=== PATIENT | male | born 1945 | race Caucasian/White ===

== ENCOUNTER 2016-03-16 02:30 | Emergency (ER) | payer OTHER, MEDICARE ==
[~2016-03-16] VITALS: Ht 170.2 cm; Wt 86.2 kg
[~2016-03-16 02:30] MED LIST: BUFFERIN LOW DO81 MG PO; DOS PO; EDARBI40 M1 PO; FISH OIL CONC1000 MG PO; LIPITOR40 M1 PO; LOPRESSOR50 M1 PO; MAGNESIUM OXID400 MG PO; METOPROLOL TAR100 MG PO; NORVASC 5MG TAB5 MG PO; OMEPRAZOLE D/R20 MG PO; RESTASIS1 EACH OPH; SILDENAFIL PO; TAMSULOSIN HYD0.4 MG PO; VITAMIN B-121000 MC3 PO; ZANTAC 150MG150 MG PO; ZITHROMAX Z-PA250 M1 PO; [UNRECOGNIZED DRUG - OTHER] PO
--- NOTE | 2016-03-16 02:36 | ED GI/GU/ABDOMINAL COMPLAINT ---
History of Present Illness General Chief Complaint: Abdominal Pain/Flank Pain Stated Complaint: ABD PAIN Source: patient Exam Limitations: no limitations Vital Signs & Intake/Output Vital Signs & Intake/Output Vital Signs Date Time Temp Pulse Resp B/P Pulse O2 O2 Flow FiO2 Ox Delivery Rate 03/16 0250 97 Room Air 03/16 0247 98.5 53 16 170/72 97 Room Air Room Air Allergies Coded Allergies: Penicillins (Intermediate, SWELLING 05/16/15) Reconcile Medications Amlodipine (Norvasc 5MG Tab) 5 MG TAB 1 TAB PO DAILY HEART (Reported) Aspirin (Children's Aspirin) 81 MG TAB 1 TAB PO DAILY HEART HEALTH (Reported) Atorvastatin Calcium (Lipitor) 40 MG TABLET 1 TAB PO DAILY high cholesterol ( Reported) Azilsartan Medoxomil (Edarbi) 40 MG TABLET 1 TAB PO DAILY Blood Pressure ( Reported) Cyanocobalamin (Vitamin B-12) 1,000 MCG TABLET 1 TAB PO DAILY Supplement ( Reported) Cyclosporine (Restasis) 1 EACH DROPERETTE 1 GTT OPH BID Eye drops (Reported) Fish Oil (Fish Oil Concentrate) 1,000 MG SGL 1 CAP PO DAILY SUPPLEMENT ( Reported) Magnesium Oxide 400 MG TAB 1 TAB PO DAILY SUPPLEMENT (Reported) Metoprolol Tartrate (Lopressor) 50 MG TABLET 1.5 TAB PO BID Blood Pressure ( Reported) Oxycodone HCl/Acetaminophen (Percocet 5-325 MG Tablet) 5 MG-325 MG TABLET 1-2 TAB PO 4XDP PRN PAIN SIXTEEN...[id number] PSYLLIUM SEED (Fiber Therapy) 3.4 GM/Dose PDR 1 PO DAILY SUPPLEMENT (Reported ) Ranitidine (Zantac) 150 MG TAB 1 TAB PO BID PRN GI (Reported) Sildenafil Citrate (Viagra) 50 MG TAB 1 TAB PO DAILY PRN ED (Reported) Triage Nurses Notes Reviewed? yes Onset: Gradual Duration: week(s):, waxing and waning Timing: recent history Quality/Severity: cramping Location: epigastric Radiation: no radiation Activities at Onset: none Prior Abdominal Problems: similar symptoms Modifying Factors: Worsens With: palpation. Associated Symptoms: abdominal pain, nausea HPI: 71 yo gentleman h/o pancreatitis, presents with mid epigastric discomfort which he has had off and on since October. He notes that he was admitted with pancreatitis, was tranferred to [place], had a negative ERCP and MRCP. Since then, he has had intermittent, fluctuating mid epigastric abdominal pain associated with mild nausea. He has no vomiting, fever, chills, vomiting, diarrhea. He is otherwise well. Past History Travel History Traveled to [place] past 21 day No Medical History Any Pertinent Medical History? 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- CABG X3 02/18/2001- CORDIS STENT PLACEMENT- CX ARTERY Respiratory: NONE Gastrointestinal: GERD, DIVERTICULOSIS COLI HX COLON TA/TVA Hepatic: NONE Renal: NONE Musculoskeletal: degen joint disease Psychiatric: NONE Endocrine: HYPERCALCEMIA (BORDERLINE) Blood Disorders: NONE Cancer(s): NONE FRAME STRIPPER/Reproductive: NONE History of MRSA: No History of VRE: No History of CDIFF: No Active CDIFF Infection: No Surgical History Surgical History: CABG, cataract removal (11/14/2014: OD with IOL), CARDIAC STENT POSSIBLE ABLATION Psychosocial History Who do you live with Spouse Services at Home None What is your primary language Sami Family History Family History, If Any: MOTHER (Non-smoker). , Age 78; Cause: Throat cancer. FATHER, , Age 82; Cause: S/P mitral valve repair. Hx Contributory? No Review of Systems Review of Systems Constitutional: Reports: no symptoms. EENTM: Reports: no symptoms. Respiratory: Reports: no symptoms. Cardiovascular: Reports: no symptoms. GI: Reports: no symptoms. Genitourinary: Reports: no symptoms. Musculoskeletal: Reports: no symptoms. Skin: Reports: no symptoms. Neurological/Psychological: Reports: no symptoms. Hematologic/Endocrine: Reports: no symptoms. Immunologic/Allergic: Reports: no symptoms. All Other Systems: Reviewed and Negative Physical Exam Physical Exam General Appearance: well developed/nourished, mild distress Head: atraumatic, normal appearance Eyes: Bilateral: normal appearance. Ears, Nose, Throat, Mouth: hearing grossly normal, moist mucous membrane Neck: normal inspection, supple, full range of motion, normal alignment Respiratory: normal breath sounds, chest non-tender, no respiratory distress, quiet respiration, lungs clear Cardiovascular: regular rate/rhythm Gastrointestinal: normal bowel sounds, soft, mild mid epigastric tenderness to palpation. no rebound. no guarding. Back: normal inspection Extremities: normal range of motion Neurologic/Psych: no motor/sensory deficits, awake, alert, oriented x 3 Skin: intact, normal color, warm/dry Core Measures ACS in differential dx? No Severe Sepsis Present: No Septic Shock Present: No Progress Differential Diagnosis: pancreatitis vs other. Plan of Care: Orders Procedure Date/time Status TROPONIN LEVEL 03/16 235 Complete PARTIAL THROMBOPLASTIN TIME 03/16 235 Complete PROTHROMBIN TIME 03/16 235 Complete LIPASE 03/16 235 Complete LACTIC ACID 03/16 235 Complete HEPATIC FUNCTION PANEL 03/16 235 Complete ETHANOL 03/16 235 Complete CBC WITHOUT DIFFERENTIAL 03/16 235 Complete BASIC METABOLIC PANEL 03/16 235 Complete AMYLASE 03/16 235 Complete EKG 03/16 235 Active Laboratory Tests 03/16/16 0304: Anion Gap 11, Estimated GFR 46 L, BUN/Creatinine Ratio 14.7, Glucose 140 H, Lactic Acid 1.0, Calcium 9.9, Total Bilirubin 0.8, Direct Bilirubin 0.5 H, AST 26, ALT 32, Alkaline Phosphatase 67, Troponin I < 0.01, Total Protein 6.8, Albumin 3.7, Amylase 39, Lipase 204, PT 14.4 H, INR 1.38 H, APTT 37, CBC w Diff NO MAN DIFF REQ, RBC 5.17, MCV 87.0, MCH 29.2, RDW 13.1, MPV 8.4, Gran % 66.1, Lymphocytes % 20.2 L, Monocytes % 11.4 H, Eosinophils % 1.8, Basophils % 0.5, Absolute Granulocytes 10.1 H, Absolute Lymphocytes 3.1, Absolute Monocytes 1.7 H, Absolute Eosinophils 0.3, Absolute Basophils 0.1, PUBS MCHC 33.5, Serum Alcohol < 10.0 Diagnostic Imaging: Viewed by Me: CT Scan. Discussed w/RAD: CT Scan. Radiology Impression: abd/pelvic ct... pancreatic stones in body. Initial ED EKG: bigeminy Rhythm Strip: nsr on the monitor. Comments: PATIENT: ISSAC ALATORRE PRESENT AGE: 71 PATIENT ACCOUNT NO: [id number] : 43 LOCATION: [facility] ORDERING PHYSICIAN: AXEL SANDOVAL MD SERVICE DATE: 03/16/16 EXAM TYPE: CAT - CT ABD & PELVIS W/O IV CONTRAS EXAMINATION: CT ABDOMEN AND PELVIS WITHOUT CONTRAST CLINICAL INFORMATION: Abdominal pain. COMPARISON: None. TECHNIQUE: Multidetector volumetric imaging was performed from the superior aspect of the liver through the pubic symphysis. Sagittal and coronal reformatted images were obtained on the technologist's workstation. DLP: 612.3 mGy-cm. FINDINGS: LUNG BASES: There is dependent juxtapleural scarring in the lower lobes bilaterally. No consolidation. Heart is enlarged. LIVER, GALLBLADDER, AND BILIARY TREE: The liver is normal in size, shape, and attenuation. No focal hepatic lesion or biliary ductal dilatation is present. The gallbladder is unremarkable with no evidence of radiopaque gallstones, gallbladder wall thickening, or obvious pericholecystic inflammatory changes. PANCREAS: The pancreas is edematous and thickened, consistent with acute pancreatitis. Peripancreatic inflammatory changes are more pronounced as compared to the prior study. Multiple calcifications are present within the pancreatic body, measuring up to 0.8 cm in diameter, likely within the main pancreatic duct. Multiple small calcifications are present proximal (to the left) of this main calcification, measuring up to 0.4 cm in diameter. These small calcifications seen on image 42/122 of series 602, likely within a side branch. The pancreatic duct appears dilated around the stones and at the pancreatic head. No focal lesions are identified on this unenhanced study. SPLEEN: Unremarkable. ADRENAL GLANDS: Unremarkable. KIDNEYS AND URETERS: As seen on image 47/89 of series 2, there is a complex renal lesion at the posterior aspect of the right lower renal pole, measuring 1.9 cm in diameter and 20 Hounsfield units in density. This is minus well-seen on the prior study. There is a 2.7 cm water density cyst at the left kidney. No hydronephrosis or nephrolithiasis. BLADDER: Unremarkable. GASTROINTESTINAL TRACT: Inflammatory changes are present around the body the stomach adjacent to the pancreas and, to a lesser extent, the transverse colon as it passes the distal margin of the pancreatic tail. These segments of bowel are likely secondarily inflamed by the aforementioned pancreatitis. Bowel is normal in caliber. No additional infiltrative changes are identified. There is severe diverticulosis in the distal descending and sigmoid colon. No intraperitoneal free fluid or free air. ABDOMINAL WALL: No significant hernia is appreciated. LYMPH NODES: Normal. VASCULAR: Calcific atherosclerosis is present in the abdominal aorta. There is a short segment of ectasia of the infrarenal abdominal aorta, measuring up to 2.7 cm in diameter. PELVIC VISCERA: Prostate gland is mildly enlarged, measuring 4.6 cm in greatest dimension. OSSEOUS STRUCTURES: Degenerative disc disease and facet arthropathy present throughout the thoracolumbar spine. Degenerative arthritis is present in the hips and SI joints. No acute osseous abnormalities. IMPRESSION: 1. Increased pancreatic and peripancreatic inflammatory changes with multiple calculi in the pancreas at the level of the pancreatic body. The pancreatitis is likely result of the stones and is more pronounced as compared to the prior study. There is secondary inflammation of the stomach and transverse colon. No peripancreatic fluid collections. 2. A 1.9 cm complex lesion in the right lower renal pole. Consider further evaluation with MRI abdomen with and without contrast. 3. Colonic diverticulosis without evidence of acute diverticulitis. DICTATED BY: JOHNY SUTHERLAND MD DATE/TIME DICTATED:03/16/16411 COMMUNITY ENGAGEMENT SPECIALIST:BETTY DATE/TIME TRANSCRIBED:03/16/16411 CONFIDENTIAL, DO NOT COPY WITHOUT APPROPRIATE AUTHORIZATION. <Electronically signed in Other Vendor System> SIGNED BY: JOHNY SUTHERLAND MD 03/16/16 0426 Departure Departure Disposition: HOME OR SELF CARE Condition: Stable Clinical Impression Primary Impression: Abdominal pain Secondary Impressions: Chronic pancreatitis Referrals: CHARLES GARIBAY MD (PCP/Family) Referred to [facility] as new patient No Departure Forms: Customer Survey General Discharge Information Prescriptions: Current Visit Scripts Oxycodone HCl/Acetaminophen (Percocet 5-325 MG Tablet) 1-2 TAB PO 4XDP PRN PAIN #16 TAB SIXTEEN...[id number] Comments 03/16/16, 5AM... .Pt feeling better... although ct scan shows inflammation, given that he is feeling better and labs are benign, and that he would like to go home , he is stable for discharge.... I counseled him to return if he is not feeling better and to follow up with his vice provost. I believe he likely has chronic paincreatitis and would benefit from percocet. Pt would like to go home.
[2016-03-16 03:22] LABS: ABSOLUTE BASOPHIL COUNT 0.1 /CUMM (0.0-0.2); ABSOLUTE EOSINOPHIL COUNT 0.3 /CUMM (0.0-0.7); ABSOLUTE GRANULOCYTE CT 10.1 /CUMM (1.4-6.5); ABSOLUTE LYMPH COUNT 3.1 /CUMM (1.2-3.4); ABSOLUTE MONOCYTE COUNT 1.7 /CUMM (0.10-0.60); BASOPHIL % 0.5 % (0.0-2.0); EOSINOPHIL % 1.8 % (0-5); GRANULOCYTE % 66.1 % (42.2-75.2); HEMATOCRIT 44.9 % (42-52); MEAN CORPUSCULAR HGB 29.2 PG (27.0-31.0); MEAN CORPUSCULAR HGB CONC 33.5 G/DL (33.0-37.0); MEAN PLATELET VOLUME 8.4 FL (7.4-10.4); PLATELET COUNT 265 /CUMM (130-400); RBC DISTRIBUTION WIDTH 13.1 % (11.5-14.5); RED BLOOD CELL CT 5.17 /CUMM (4.70-6.10); WHITE BLOOD CELL COUNT 15.3 /CUMM (4.8-10.8)
[2016-03-16 03:45] LABS: PT 14.4 SEC (9.4-12.5); PTT 37 SEC (25-37)
--- NOTE | 2016-03-16 04:26 | CT SCAN REPORT ---
EXAMINATION: CT ABDOMEN AND PELVIS WITHOUT CONTRAST CLINICAL INFORMATION: Abdominal pain. COMPARISON: None. TECHNIQUE: Multidetector volumetric imaging was performed from the superior aspect of the liver through the pubic symphysis. Sagittal and coronal reformatted images were obtained on the technologist's workstation. DLP: 612.3 mGy-cm. FINDINGS: LUNG BASES: There is dependent juxtapleural scarring in the lower lobes bilaterally. No consolidation. Heart is enlarged. LIVER, GALLBLADDER, AND BILIARY TREE: The liver is normal in size, shape, and attenuation. No focal hepatic lesion or biliary ductal dilatation is present. The gallbladder is unremarkable with no evidence of radiopaque gallstones, gallbladder wall thickening, or obvious pericholecystic inflammatory changes. PANCREAS: The pancreas is edematous and thickened, consistent with acute pancreatitis. Peripancreatic inflammatory changes are more pronounced as compared to the prior study. Multiple calcifications are present within the pancreatic body, measuring up to 0.8 cm in diameter, likely within the main pancreatic duct. Multiple small calcifications are present proximal (to the left) of this main calcification, measuring up to 0.4 cm in diameter. These small calcifications seen on image 42/122 of series 602, likely within a side branch. The pancreatic duct appears dilated around the stones and at the pancreatic head. No focal lesions are identified on this unenhanced study. SPLEEN: Unremarkable. ADRENAL GLANDS: Unremarkable. KIDNEYS AND URETERS: As seen on image 47/89 of series 2, there is a complex renal lesion at the posterior aspect of the right lower renal pole, measuring 1.9 cm in diameter and 20 Hounsfield units in density. This is minus well-seen on the prior study. There is a 2.7 cm water density cyst at the left kidney. No hydronephrosis or nephrolithiasis. BLADDER: Unremarkable. GASTROINTESTINAL TRACT: Inflammatory changes are present around the body the stomach adjacent to the pancreas and, to a lesser extent, the transverse colon as it passes the distal margin of the pancreatic tail. These segments of bowel are likely secondarily inflamed by the aforementioned pancreatitis. Bowel is normal in caliber. No additional infiltrative changes are identified. There is severe diverticulosis in the distal descending and sigmoid colon. No intraperitoneal free fluid or free air. ABDOMINAL WALL: No significant hernia is appreciated. LYMPH NODES: Normal. VASCULAR: Calcific atherosclerosis is present in the abdominal aorta. There is a short segment of ectasia of the infrarenal abdominal aorta, measuring up to 2.7 cm in diameter. PELVIC VISCERA: Prostate gland is mildly enlarged, measuring 4.6 cm in greatest dimension. OSSEOUS STRUCTURES: Degenerative disc disease and facet arthropathy present throughout the thoracolumbar spine. Degenerative arthritis is present in the hips and SI joints. No acute osseous abnormalities. IMPRESSION: 1. Increased pancreatic and peripancreatic inflammatory changes with multiple calculi in the pancreas at the level of the pancreatic body. The pancreatitis is likely result of the stones and is more pronounced as compared to the prior study. There is secondary inflammation of the stomach and transverse colon. No peripancreatic fluid collections. 2. A 1.9 cm complex lesion in the right lower renal pole. Consider further evaluation with MRI abdomen with and without contrast. 3. Colonic diverticulosis without evidence of acute diverticulitis.
[2016-03-16] MEDS ORDERED: PERCOCET 5-3251 EACH PO (05:01)
[2016-03-16 05:15] VITALS: BP 108/55
== END 2016-03-16 05:16 ==
LOC: ERH 02:30
PROVIDERS: Pediatrics
DX: K86.1 Other chronic pancreatitis (principal)
CPT/HCPCS: 74176; 93005; 93010; 96361; 96374; 96375; G0480

== ENCOUNTER 2017-06-30 10:42 | Observation (INO) | payer OTHER, MEDICARE ==
[~2017-06-30] VITALS: Ht 170.2 cm; Wt 90.7 kg
[~2017-06-30 10:42] MED LIST changes: -BUFFERIN LOW DO81 MG PO; +CHILDREN'S ASPI81 M1 PO; -DOS PO; +FIBER THERAPY500 MG PO; +FISH OIL CONC1000 M1 PO; -FISH OIL CONC1000 MG PO; +LIPITOR20 M2 PO; -LIPITOR40 M1 PO; +MAGNESIUM OXID400 M1 PO; +MECLIZINE HCL25 MG PO; -NORVASC 5MG TAB5 MG PO; +NORVASC5 M1 PO; +OMEPRAZOLE40 M1 PO; +PERCOCET 5-3251 EACH PO; +VITAMIN D31000 UNI2 PO; -[UNRECOGNIZED DRUG - OTHER] PO
[2017-06-30 11:44] LABS: ABSOLUTE BASOPHIL COUNT 0.1 /CUMM (0.0-0.2); ABSOLUTE EOSINOPHIL COUNT 0.2 /CUMM (0.0-0.7); ABSOLUTE GRANULOCYTE CT 5.5 /CUMM (1.4-6.5); ABSOLUTE LYMPH COUNT 2.4 /CUMM (1.2-3.4); ABSOLUTE MONOCYTE COUNT 0.7 /CUMM (0.10-0.60); BASOPHIL % 0.8 % (0.0-2.0); EOSINOPHIL % 2.7 % (0-5); GRANULOCYTE % 61.3 % (42.2-75.2); HEMATOCRIT 47.7 % (42-52); MEAN CORPUSCULAR HGB 28.9 PG (27.0-31.0); MEAN CORPUSCULAR HGB CONC 33.8 G/DL (33.0-37.0); MEAN CORPUSCULAR VOLUME 85.6 FL (80.0-94.0); MEAN PLATELET VOLUME 8.3 FL (7.4-10.4); PLATELET COUNT 224 /CUMM (130-400); RBC DISTRIBUTION WIDTH 13.8 % (11.5-14.5); RED BLOOD CELL CT 5.57 /CUMM (4.70-6.10); WHITE BLOOD CELL COUNT 8.9 /CUMM (4.8-10.8)
[2017-06-30 11:56] LABS: PT 11.8 SEC (9.4-12.5); PTT 33 SEC (25-37)
--- NOTE | 2017-06-30 15:00 | RADIOLOGY REPORT ---
EXAMINATION: XR CHEST CLINICAL INFORMATION: 72-year-old male patient with chest pain. Presumptive diagnosis: CHF. COMPARISON: Chest x-ray on 01/30/2015. Interval studies on 06/23/2015 and 11/10/2015. TECHNIQUE: PA and lateral erect views of the chest FINDINGS: Reexamination shows borderline enlargement of the heart. Previous surgery has been performed and sternotomy wires are in place. There is a fracture involving the third wire from the top. Pulmonary vascularity is normal. Lungs are clear showing no evidence of edema or consolidation. No pleural effusion is seen. IMPRESSION: No evidence of CHF.
--- NOTE | 2017-06-30 15:23 | ED CARDIAC/CP/PALPITATIONS ---
History of Present Illness General Chief Complaint: Chest Pain Stated Complaint: CHEST PAIN Source: patient Exam Limitations: no limitations Vital Signs & Intake/Output Vital Signs & Intake/Output Vital Signs Date Time Temp Pulse Resp B/P B/P Pulse O2 O2 Flow FiO2 Mean Ox Delivery Rate 06/30 1732 97.7 58 20 152/74 96 Room Air 06/30 1443 98 Room Air Room Air 06/30 1443 52 18 176/76 98 Room Air Room Air 06/30 1337 96.6 57 20 132/83 99 Room Air 06/30 1130 96.8 59 18 148/83 96 Room Air Allergies Coded Allergies: Penicillins (Intermediate, SWELLING 05/16/15) Reconcile Medications Amlodipine Besylate (Norvasc) 5 MG TABLET 1 TAB PO DAILY HEART (Reported) Aspirin (Children's Aspirin) 81 MG TAB.CHEW 1 TAB PO Q48 HEART HEALTH ( Reported) Atorvastatin Calcium (Lipitor) 40 MG TABLET 1 TAB PO DAILY high cholesterol ( Reported) Azilsartan Medoxomil (Edarbi) 40 MG TABLET 1 TAB PO DAILY Blood Pressure ( Reported) Cholecalciferol (Vitamin D3) 1,000 UNIT TABLET 1 TAB PO DAILY VITAMIN SUPPORT (Reported) Cyanocobalamin (Vitamin B-12) 1,000 MCG TABLET 1 TAB PO DAILY Supplement ( Reported) Cyclosporine (Restasis) 1 EACH DROPERETTE 1 GTT OPH BID Eye drops (Reported) Magnesium Oxide 400 MG TABLET 1 TAB PO DAILY SUPPLEMENT (Reported) Meclizine HCl 25 MG TABLET 1 TAB PO Q6P VERTIGO Methylcellulose (Fiber Therapy) 500 MG TABLET 1 TAB PO DAILY SUPPLEMENT ( Reported) Metoprolol Tartrate (Lopressor) 50 MG TABLET 1.5 TAB PO BID Blood Pressure ( Reported) [place]-3 Fatty Acids (Fish Oil Concentrate) 1,000 MG CAPSULE 1 CAP PO DAILY SUPPLEMENT (Reported) Omeprazole 40 MG CAPSULE.DR 1 CAP PO DAILY GI (Reported) Triage Note: C/O INTERMITTANT LEFT SIDED CHEST PAIN X 8 HOURS, WITH INTERMITTANT LEFT ARM NUNBESS X 3 WEEKS. DENIES SOB, DIZZINESS OR [place], PAIN FREE AT PRESENT. EKG DONE IN TRIAGE. Triage Nurses Notes Reviewed? yes Onset: Abrupt Duration: hour(s): (8-10), intermittent, waxing and waning Timing: recent history Quality/Severity: mild Radiation: shoulders Activities at Onset: none Prior Chest Pain/Card Workup: cardiac cath HPI: 72-year-old male comes into the emergency room for further evaluation of left- sided chest pain that has been going on for the past 8-10 hours intermittently. Located on the left anterior aspect of his chest and radiates into his left shoulder. He has some associated sweating with the initial attack. Patient reports she was sitting on his chair when he felt the pain. He has a history of triple bypass and cardiac stent. Pain has been intermittent here in the emergency room. Denies any fever chills vomiting or shortness of breath. Nothing seems to make the symptoms better or worse. (Rafa Fernández) Past History Travel History Traveled to [place] past 21 day No Medical History Any Pertinent Medical History? 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 , Age 78; Cause: Throat cancer. FATHER, , Age 82; Cause: S/P mitral valve repair. Hx Contributory? No (Rafa Fernández) Review of Systems Review of Systems Constitutional: Reports: see HPI. EENTM: Reports: no symptoms. Respiratory: Reports: see HPI. Cardiovascular: Reports: see HPI. GI: Reports: no symptoms. Genitourinary: Reports: no symptoms. Musculoskeletal: Reports: no symptoms. Skin: Reports: no symptoms. Neurological/Psychological: Reports: no symptoms. Hematologic/Endocrine: Reports: no symptoms. Immunologic/Allergic: Reports: no symptoms. All Other Systems: Reviewed and Negative (Rafa Fernández) Physical Exam Physical Exam General Appearance: well developed/nourished, alert, awake Head: atraumatic Eyes: Bilateral: normal appearance. Ears, Nose, Throat: normal ENT inspection, hearing grossly normal Neck: normal inspection Respiratory: normal breath sounds, no respiratory distress Cardiovascular: regular rate/rhythm Gastrointestinal: soft Back: normal inspection Extremities: normal inspection Neurologic/Psych: awake, alert, oriented x 3 Skin: intact, normal color Core Measures ACS in differential dx? Yes CVA/TIA Diagnosis No Sepsis Present: No Sepsis Focused Exam Completed? No (Rafa Fernández) Progress Differential Diagnosis: AMI, aortic dissection, costochondritis, musculoskeletal pain, myocarditis, pancreatitis, pericarditis, pneumonia, pneumothorax, pulmonary embolism, unstable angina Plan of Care: Orders Procedure Date/time Status Heart Healthy Diet 07/[address] in observation 06/30 1733 Active ED Holding Orders 06/30 1733 Active Vital Signs 06/30 1733 Active Code Status 06/30 1733 Active Telemetry/Supervisor [employer] 06/30 1438 Active TROPONIN LEVEL 06/30 1134 Complete PARTIAL THROMBOPLASTIN TIME 06/30 1134 Complete PROTHROMBIN TIME 06/30 1134 Complete CBC WITHOUT DIFFERENTIAL 06/30 1134 Complete BASIC METABOLIC PANEL 06/30 1134 Complete EKG 06/30 1043 Active Laboratory Tests 06/30/17 1135: Anion Gap 11, Estimated GFR 59 L, BUN/Creatinine Ratio 13.3, Glucose 94, Calcium 10.3 H, Troponin I < 0.01, PT 11.8, INR 1.08, APTT 33, CBC w Diff NO MAN DIFF REQ, RBC 5.57, MCV 85.6, MCH 28.9, MCHC 33.8, RDW 13.8, MPV 8.3, Gran % 61.3, Lymphocytes % 27.5, Monocytes % 7.7, Eosinophils % 2.7, Basophils % 0.8, Absolute Granulocytes 5.5, Absolute Lymphocytes 2.4, Absolute Monocytes 0.7 H, Absolute Eosinophils 0.2, Absolute Basophils 0.1 Diagnostic Imaging: Viewed by Me: Radiology Read. Discussed w/RAD: Radiology Read. Radiology Impression: PATIENT: ISSAC ALATORRE PRESENT AGE: 72 PATIENT ACCOUNT NO: [id number] : 43 LOCATION: [facility] ORDERING PHYSICIAN: Moe Joyner DO SERVICE DATE: 06/30/179962 EXAM TYPE: RAD - XRY-CHEST XRAY, TWO VIEWS EXAMINATION: XR CHEST CLINICAL INFORMATION : 72-year-old male patient with chest pain. Presumptive diagnosis: CHF. COMPARISON: Chest x-ray on 01/30/2015. Interval studies on 06/23/2015 and 2015. TECHNIQUE: PA and lateral erect views of the chest FINDINGS: Reexamination shows borderline enlargement of the heart. Previous surgery has been performed and sternotomy wires are in place. There is a fracture involving the third wire from the top. Pulmonary vascularity is normal. Lungs are clear showing no evidence of edema or consolidation. No pleural effusion is seen. IMPRESSION: No evidence of CHF. DICTATED BY: Henri Abel MD DATE/TIME DICTATED:06/30/171453 MERCHANT PATROLLER:BETTY DATE/TIME TRANSCRIBED:06/30/171453 CONFIDENTIAL, DO NOT COPY WITHOUT APPROPRIATE AUTHORIZATION. <Electronically signed in Other Vendor System> SIGNED BY: Henri Abel MD 06/30/17 1500 Initial ED EKG: normal sinus rhythm, rate (55) (Rafa Fernández) Departure Departure Disposition: STILL A PATIENT Condition: Stable Clinical Impression Primary Impression: Unstable angina Referrals: Chely SALVADOR,Garland Lopez (PCP/Family) Departure Forms: Customer Survey General Discharge Information Admission Note Documentation of Exam: Documentation of any treatments & extenuating circumstances including Concerns Regarding Discharge (functional status, medication knowledge or non-compliance, living conditions, etc.) that warrant an admission rather than observation: Cardiac telemetry. Serial troponins. Cardiac consultation. High risk. Intermittent chest pain here in the emergency room. Significant cardiac history. (Rafa Fernández) Observation Note Spoke With: Flex SALVADOR,Hamida Lopez Physician Advisor Notified: MOE JOYNER DO Place Patient In: Non-ED OBS Care Area Rationale for Observation: My rational for observation is as follows [serial troponins, cardiology consultation]. PA/OYSTER SHUCKER Co-Sign Statement Statement: ED Attending supervision documentation- [X] I saw and evaluated the patient. I have also reviewed all the pertinent lab results and diagnostic results. I agree with the findings and the plan of care as documented in the PA's/OYSTER SHUCKER's documentation. [] I have reviewed the ED Record and agree with the PA's/OYSTER SHUCKER's documentation. [] Additions or exceptions (if any) to the PAs/OYSTER SHUCKER's note and plan are summarized below: [] 72-year-old man with history of coronary artery disease presents with ongoing intermittent chest pain. He is being placed in observation for serial troponins , cardiology consultation. (Pepito BONILLA,Moe Ragsdale) Critical Care Note Critical Care Note Critical Care Time: non-applicable (Rafa Fernández)
--- NOTE | 2017-06-30 16:35 | CT SCAN REPORT ---
EXAMINATION: CT ABDOMEN AND PELVIS WITHOUT CONTRAST CLINICAL INFORMATION: Abdominal pain. COMPARISON: CT scan abdomen and pelvis 03/16/2016. TECHNIQUE: Multidetector volumetric imaging was performed from the superior aspect of the liver through the pubic symphysis. Sagittal and coronal reformatted images were obtained on the technologist's workstation. DLP: 674.64 mGy-cm FINDINGS: LUNG BASES: The visualized lung bases are unremarkable. LIVER, GALLBLADDER, AND BILIARY TREE: The liver is normal in size, shape, and attenuation. No focal hepatic lesion or biliary ductal dilatation is present. The gallbladder is unremarkable with no evidence of radiopaque gallstones, gallbladder wall thickening, or obvious pericholecystic inflammatory changes. PANCREAS: There are small cystic regions in the uncinate process of the pancreas without enlargement of the pancreas with inflammation around the pancreas. These have density measurement of about 1 Hounsfield unit. There are couple of coarse calcifications in the pancreatic body. This is stable since CAT scan 03/16/2016. There is no pancreatic duct dilatation. SPLEEN: Unremarkable. ADRENAL GLANDS: Unremarkable. KIDNEYS AND URETERS: Cortical cyst upper pole of left kidney measuring 2.5 cm. There is a 2.6 cm cortical cyst at the lower pole of the right kidney. No renal or ureteral calculi. There is no hydronephrosis. BLADDER: Unremarkable. GASTROINTESTINAL TRACT: There is marked diverticulosis of the sigmoid and left colon with scattered diverticula in the right colon. There is no diverticulitis. There is no acute abnormality of the bowel. No bowel obstruction. No bowel wall thickening or edema. Moderate volume of stool in the colon. The appendix is normal. The small bowel loops are normal. ABDOMINAL WALL: No significant hernia is appreciated. LYMPH NODES: Normal. VASCULAR: There are atherosclerotic vascular wall calcifications throughout the abdomen and pelvis. There is a subtle fusiform aneurysm of the distal aorta measuring 2.6 cm AP. PELVIC VISCERA: Prostate measures 5.1 cm transverse. OSSEOUS STRUCTURES: Degenerative spondylosis spine with multilevel disc height narrowing, endplate spurring and facet joint arthrosis. IMPRESSION: No acute abnormality CT scan abdomen and pelvis. There is diverticulosis of the colon but no acute change of the bowel.
--- NOTE | 2017-06-30 17:28 | History & Physical ---
[facility] 1726: General Information and HPI MD Statement: I have seen and personally examined ISSAC ALATORRE and documented this H&P. The patient is a 72 year old M who presented with a patient stated chief complaint of chest pain with left arm numbness []. Source of Information: patient, old records Exam Limitations: no limitations History of Present Illness: 72 YO M with PMH of A. fib status post ablation, CAD status post CABG with stent placement, hypertension, hyperlipidemia, GERD, diverticulosis, degenerative joint disease and hypercalcemia came to ED with chief complaint of chest pain and left arm numbness since this morning. Patient reported that he was in his usual state of health since this morning when he woke up around 2 AM and he noticed having chest pain and left arm numbness. Chest pain was 7/10 intermittent, in the center of chest, nonradiating and no aggravating or relieving factors. Patient also reported having numbness on the left arm. Patient endorsed that this pain didn't worsen with exertion and not relieved with rest. Patient didn't take any medication. Patient also reported having sweating associated with pain. He denied any palpitation, shortness of breath, lightheadedness, headache, and radiation of the pain, abdominal pain, diarrhea, blood in stool, blood in vomitus, nausea, vomiting, sick contact and dysuria. Patient reported that 3 weeks back he went to initiate for renal ultrasound as he had a right renal tumor and he also notes in that his abdomen is increasing in size. He also reported that he gained 10 pounds in couple months. Patient had last echocardiogram in 2016 that showed ejection fraction 60-65%. Last time he was admitted in 2016 with abdominal pain and he was found to have pancreatitis. ED course: Vitals: Temperature 96.8, pulse 59, respiratory rate 18, blood pressure 148/83, oxygen saturation 96% on room air Labs: WBC count 8.9, hemoglobin 16.1, hematocrit 47.7, platelet count 224, sodium 142, potassium 4.6, BUN 16, creatinine 1.2, anion gap 11, BUN/creatinine ratio 13.3, glucose 94, calcium 10.3, troponin less than 0.01, INR 1.08 Allergies/Medications Allergies: Coded Allergies: Penicillins (Intermediate, SWELLING 05/16/15) Past History Travel History Traveled to [place] past 21 day No Medical History Neurological: NONE EENT: epistaxis Cardiovascular: AFIB (PAROXYSMAL- POST ABLATION), CAD, hypertension, hyperlipidemia, myocardial infarction, 03/04/1999- CABG X3 02/18/2001- CORDIS STENT PLACEMENT- CX ARTERY Respiratory: NONE Gastrointestinal: GERD, DIVERTICULOSIS COLI HX COLON TA/TVA Hepatic: NONE Renal: NONE Musculoskeletal: degen joint disease Psychiatric: NONE Endocrine: HYPERCALCEMIA (BORDERLINE) Blood Disorders: NONE Cancer(s): NONE 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 , Age 78; Cause: Throat cancer. FATHER, , Age 82; Cause: S/P mitral valve repair. Psychosocial History Who Do You Live With? spouse Services at Home: None Primary Language: Angolan ETOH Use: occasional use Living Will? no Power of Manager Residential/HCP? no Functional Ability ADLs Independent: dressing, eating, toileting, bathing. Ambulation: independent IADLs Independent: shopping, housework, finances, food prep, telephone, transportation , medication admin. Review of Systems Review of Systems Constitutional: Denies: chills, fever. EENTM: Reports: no symptoms. Cardiovascular: Reports: chest pain. Denies: palpitations. Respiratory: Denies: cough, short of breath, sputum production. GI: Reports: constipation, distention. Denies: abdominal pain, diarrhea, nausea. Genitourinary: Reports: no symptoms. Musculoskeletal: Reports: no symptoms. Neurological/Psychological: Reports: numbness. Exam & Diagnostic Data Last 24 Hrs of Vital Signs/I&O Vital Signs Date Time Temp Pulse Resp B/P B/P Pulse O2 O2 Flow FiO2 Mean Ox Delivery Rate 06/30 1443 98 Room Air Room Air 06/30 1443 52 18 176/76 98 Room Air Room Air 06/30 1337 96.6 57 20 132/83 99 Room Air 06/30 1130 96.8 59 18 148/83 96 Room Air Intake & Output 06/30 1600 06/30 0800 06/30 0000 Intake Total Output Total Balance Patient 200 lb Weight Weight Reported by Patient Measurement Method Physical Exam General Appearance Alert, Oriented X3, Cooperative Skin No Rashes Skin Temp/Moisture Exam: Warm/Dry Sepsis Skin Exam (color): Normal for Ethnicity HEENT Atraumatic, PERRLA, EOMI Neck Supple Cardiovascular Normal S1, Normal S2 Lungs Clear to Auscultation Abdomen No Tenderness, Mild distension Neurological Normal Speech, Strength at 5/5 X4 Ext, Normal Tone Extremities b/l grade 1 pedal edema Last 24 Hrs of Labs/Markel: Laboratory Tests 06/30/17 1135: Anion Gap 11, Estimated GFR 59 L, BUN/Creatinine Ratio 13.3, Glucose 94, Calcium 10.3 H, Total Bilirubin 0.7, Direct Bilirubin 0.5 H, AST 32, ALT 49, Alkaline Phosphatase 67, Troponin I < 0.01, Total Protein 7.2, Albumin 4.2, Lipase 31, PT 11.8, INR 1.08, APTT 33, CBC w Diff NO MAN DIFF REQ, RBC 5.57, MCV 85.6, MCH 28.9, MCHC 33.8, RDW 13.8, MPV 8.3, Gran % 61.3, Lymphocytes % 27.5, Monocytes % 7.7, Eosinophils % 2.7, Basophils % 0.8, Absolute Granulocytes 5.5, Absolute Lymphocytes 2.4, Absolute Monocytes 0.7 H, Absolute Eosinophils 0.2, Absolute Basophils 0.1 Assessment/Plan Assessment: 72 YO M with PMH of A. fib status post ablation, CAD status post CABG with stent placement, hypertension, hyperlipidemia, GERD, diverticulosis, degenerative joint disease and hypercalcemia came to ED with chief complaint of chest pain and left arm numbness since this morning. We will keep the patient under observation on telemetry floor for following reasons: Chest pain: -Probably patient has unstable angina considering his past medical history of CABG and stent placement we will keep the patient on telemetry floor. -Serial Trop and EKG to rule out any ischemic cardiac injury -We will continue his aspirin and atorvastatin -Cardiology consult in am -Echocardiogram in a.m. History of hypertension: -Continue losartan,amlodipine and metoprolol. History of hyperlipidemia; -Continue atorvastatin History of GERD: -Continue omeprazole DVT prophylaxis: Mechanical and subcutaneous heparin CODE STATUS: Full code As Ranked By This Provider Problem List: 1. Chest pain Core Measures/Misc (11/30) Acute Coronary Syndrome ACS Diagnosis: No Congestive Heart Failure Congestive Heart Failure Diagnosis No Cerebrovascular Accident CVA/TIA Diagnosis: No VTE (View Protocol) VTE Risk Factors Age>40 No Mechanical VTE Prophylaxis d/t N/A MechProphylax Ordered No VTE Pharm Prophylaxis d/t NA PharmProphylax ordered Sepsis (View protocol) Sepsis Present: No Colin Chauhan MD 06/30/171921: General Information and HPI Allergies/Medications Home Med list Amlodipine Besylate (Norvasc) 5 MG TABLET 1 TAB PO DAILY HEART (Reported) Aspirin (Children's Aspirin) 81 MG TAB.CHEW 1 TAB PO Q48 HEART HEALTH ( Reported) Atorvastatin Calcium (Lipitor) 20 MG TABLET 1 TAB PO DAILY HLD (Reported) Azilsartan Medoxomil (Edarbi) 40 MG TABLET 1 TAB PO DAILY Blood Pressure ( Reported) Cholecalciferol (Vitamin D3) 1,000 UNIT TABLET 1 TAB PO DAILY VITAMIN SUPPORT (Reported) Cyanocobalamin (Vitamin B-12) 1,000 MCG TABLET 1 TAB PO DAILY Supplement ( Reported) Cyclosporine (Restasis) 1 EACH DROPERETTE 1 GTT OPH BID Eye drops (Reported) Magnesium Oxide 400 MG TABLET 1 TAB PO DAILY SUPPLEMENT (Reported) Methylcellulose (Fiber Therapy) 500 MG TABLET 1 TAB PO DAILY SUPPLEMENT ( Reported) Metoprolol Tartrate (Lopressor) 50 MG TABLET 1.5 TAB PO BID Blood Pressure ( Reported) [place]-3 Fatty Acids (Fish Oil Concentrate) 1,000 MG CAPSULE 1 CAP PO DAILY SUPPLEMENT (Reported) Omeprazole 40 MG CAPSULE. 1 CAP PO DAILY GI (Reported) Resident Review Statement Resident Statement: examined this patient, discussed with transportation logistics internship, agreed with transportation logistics internship, discussed with family Other Findings: History of Present 72-year-old man with past medical history of coronary artery disease status post CABG (1998), myocardial infarction status post stent (2000), atrial fibrillation status post ablation, hypertension, hyperlipidemia, and GERD seen for evaluation of chest pain and left arm pain. Patient was previously admitted to [facility] from 11/10/15-11/12/15 for evaluation of abdominal pain where he was found to have pancreatitis and a "pancreatic mass" with hypercalcemia for which he was treated with IV fluids and underwent outpatient GI and endocrine evaluation that was ultimately unremarkable; the mass was found to be choledocholithiasis. Patient reports being awoken from sleep around 2 AM with left-sided 7-8/10 chest pain without radiation or aggravating/alleviating factors. The pain was characterized as pressure and waxing/waning without changes with position or breathing. He reported left arm discomfort described as numb/tingling that felt different than his chest pain as if he "slept on it wrong". He rubbed "BenGay" on his chest that did not relieve his symptoms. He reportedly developed cold sweats during these episodes. He does admit to recent shortness of breath with hand/feet swelling. For further evaluation and persistence of these symptoms the patient reports the [place] ED. Presently patient states that his belly feels bloated as his only complaint but he otherwise denies any further chest pain or arm discomfort. Review of systems Otherwise he denies any headache, fever, chills, blurred/double vision, light headedness, dizziness, current chest pain, palpitations, heartburn, shortness of breath Objective Vital signs -Temp 96.6-96.8, HR 52-59, RR 18-20, SBP 172-176, O2 96-98% on room air Physical exam -Gen.: Well-developed, well-nourished obese elderly man in no acute distress -HEENT: NCAT, PERRLA, EOMI, anicteric sclera, moist mucous membranes -Neck: Supple, no JVD, trachea midline -Cardio: Normal S1/S2 without murmurs/gallops/rubs; regular rate and rhythm -Pulmonary: Clear to auscultation bilaterally -Abdomen: Soft, mildly distended, mild diffuse tenderness without guarding or rigidity, bowel sounds present -Neuro: Awake and alert, cranial nerves II through XII grossly intact -Extremities: Normal pulses, trace bilateral pedal edema Lab / Imaging / Studies -CBC: WBC 8.9, hemoglobin 16.1, hematocrit 47.7, platelet 224 -BMP: Sodium 142, potassium 4.6, chloride 116, CO2 25, urea 16, creatinine 1.2, anion gap 11, glucose 94 -Miscellaneous: Troponin I <0.01, INR 1.08, calcium 10.3 -Chest x-ray: No acute cardiopulmonary findings -CT abdomen/pelvis without IV contrast: * No acute abnormality CT scan abdomen and pelvis. There is diverticulosis of the colon but no acute change of the bowel. -EKG: Normal sinus rhythm -ED interventions: * Aspirin 325 mg by mouth once Assessment 72-year-old man with a significant cardiovascular history seen for evaluation of acute onset chest pain waking him from sleep. Given his known coronary artery disease requiring stents with bypass and his several cardiovascular risk factors patient has a high pretest probability for progressive/worsening coronary artery disease. EKG and troponin remain unremarkable without any further subjective chest pain or complaints. Clinically patient does not appear to be having an acute coronary syndrome. For further evaluation of patient's complaints he is placed under observation on the telemetry floor for serial troponin/EKG and cardio evaluation. Problem List -Chest pain at rest, possible unstable angina -Abdominal distention -Atrial fibrillation s/p ablation -"Kidney Tumor" -Coronary artery disease s/p CABG (1998) -Myocardial infarction s/p PCI with stent (2000) -Hypertension -Hyperlipidemia -Obesity -GERD Plan -Telemetry observation -Telemetry monitoring -Continue home medications: amlodipine, aspirin, atorvastatin, losartan( substituted for azilsartan), vitamin D, B12, mag-ox, fiber, metoprolol, fish, omeprazole -Cardiology consult for chest pain -Trend troponin / EKG until peak or three negative sets -Check LFTs and lipase -Pain control with acetaminophen -Heart healthy diet -DVT PPx with subcutaneous heparin -FULL CODE Hamida Mccord MD 06/30/172031: Attending MD Review Statement Attending Statement Attending MD Statement: examined this patient, discuss w/resident/PA/CORRUGATOR OPERATOR, agreed w/resident/PA/CORRUGATOR OPERATOR, reviewed EMR data (avail), reviewed images Attending Assessment/Plan: 72 year old male with PMH HTN, CAD, Afib with h/o ablation on no ac, h/o pancreatitis here with 3 week h/o left arm numbness and one day h/o left sided chest pain. History is atypical for ACS but given risk factors and known CAD, will bring pt in to observation and r/o acs. Will continue his Norvasc, Metoprolol, ARB, Statin and Asa for now. Given neg enzymes and no dynamic EKG changes, will hold off on IV Heparin for now. Need collaterla h/o and old records regarding "Kidney mass" per pt. Formal cardiology conuslt with Dr Jordan [facility] (with whom pt folloows) for recent echo and risk stratifcation. DVT prophylaxis.
[2017-07-01 06:17] LABS: ABSOLUTE BASOPHIL COUNT 0 /CUMM (0.0-0.2); ABSOLUTE EOSINOPHIL COUNT 0.2 /CUMM (0.0-0.7); ABSOLUTE GRANULOCYTE CT 5.9 /CUMM (1.4-6.5); ABSOLUTE LYMPH COUNT 2.6 /CUMM (1.2-3.4); BASOPHIL % 0.3 % (0.0-2.0); EOSINOPHIL % 2.5 % (0-5); GRANULOCYTE % 60.5 % (42.2-75.2); MEAN CORPUSCULAR HGB 28.8 PG (27.0-31.0); MEAN CORPUSCULAR HGB CONC 33.2 G/DL (33.0-37.0); MEAN CORPUSCULAR VOLUME 86.8 FL (80.0-94.0); MEAN PLATELET VOLUME 8.4 FL (7.4-10.4); PLATELET COUNT 229 /CUMM (130-400); RBC DISTRIBUTION WIDTH 13.6 % (11.5-14.5); RED BLOOD CELL CT 5.53 /CUMM (4.70-6.10); WHITE BLOOD CELL COUNT 9.8 /CUMM (4.8-10.8)
[2017-07-01 07:00] VITALS: BP 132/70
--- NOTE | 2017-07-01 08:00 | PN-Observation ---
[facility] Observation [facility] Observation Note _ I have personally examined ISSAC ALATORRE. him disposition is uncertain at this time. Before a determination can be made, he requires continued observation for the following reasons chest pain and new onset of atrial flutter []. Assessment/Plan Medical Assessment: 72 YO M with PMH of A. fib status post ablation, CAD status post CABG with stent placement, hypertension, hyperlipidemia, GERD, diverticulosis, degenerative joint disease and hypercalcemia came to ED with chief complaint of chest pain and left arm numbness. Patient was found to have new onset of atrial flutter in ED. Problem List: 1. Chest pain 2. Atrial flutter Plan: Chest pain: -Probably patient has unstable angina considering his past medical history of CABG and stent placement we will keep the patient on telemetry floor. -Serial Trops remained negative. His EKGs have T-wave inversion compare to previuos EKG. -continue his aspirin and atorvastatin -f/u with cardio recommendations. New onset atrial flutter: -Inpatient cardioversion versus output-procedure was discussed with patient and he agreed to go with outpatient procedure if it would not convert spontaneously to sinus rhythm. -Patient was given to for anticoagulation to prevent risk of stroke in the setting of atrial flutter. Xeralto dose was confirmed with inpatient pharmacy. Before discharging the patient CMR was discussed with Dr. Ojeda with all new medication recommended by cardiology. -His metoprolol was increased from 75 twice a day 200 twice a day. -patient was instructed to follow outpatient cardiology for ablation procedure also for stress test in future. -Patient was given Imdur 30 mg for chest pain History of hypertension: -Continue losartan,amlodipine and metoprolol dose was increased from 75 twice a day 200 twice a day. History of hyperlipidemia; -Continue atorvastatin History of GERD: -Continue omeprazole DVT prophylaxis: Mechanical and subcutaneous heparin CODE STATUS: Full code Subjective Follow-up For: Chest pain probably unstable angina New-onset atrial flutter Tele-Events Since Last Visit: Heart rate remained in the 80s Subjective: No overnight events. She remained afebrile. Seen and examined this morning he denied any chest pain, palpitation, nausea, vomiting, chills, fever and abdominal pain. Review of Systems Constitutional: Denies: chills, fever. EENTM: Reports: no symptoms. Cardiovascular: Denies: chest pain, palpitations. Respiratory: Denies: cough, short of breath, sputum production. Gastrointestinal: Denies: abdominal pain, constipation, diarrhea, nausea. Genitourinary: Reports: no symptoms. Neurological/Psychological: Reports: no symptoms. Objective Last 24 Hrs of Vital Signs/I&O Vital Signs Date Time Temp Pulse Resp B/P B/P Pulse O2 O2 Flow FiO2 Mean Ox Delivery Rate 07/01 1217 98.2 80 16 134/80 98 Room Air Room Air 07/01 1048 97.4 60 20 130/62 96 Room Air 07/01 1042 97.8 60 18 130/62 96 07/01 1007 130/82 04 1006 130/82 07/01 0739 98.4 74 18 132/70 96 Room Air 07/01 0700 98.4 74 18 132/70 96 Room Air 07/01 0553 97.5 56 20 146/69 96 Room Air 06/30 2343 98.4 62 18 137/65 95 Room Air 06/30 2115 98.0 76 20 160/72 95 Room Air 06/30 1921 98.2 71 20 156/82 95 Room Air 06/30 1732 97.7 58 20 152/74 96 Room Air 06/30 1443 98 Room Air Room Air 06/30 1443 52 18 176/76 98 Room Air Room Air 06/30 1337 96.6 57 20 132/83 99 Room Air Intake & Output 07/01 1600 07/01 0800 07/01 0000 Intake Total 200 Output Total Balance 200 Intake, Oral 200 Patient 200 lb Weight Physical Exam General Appearance: Alert, Oriented X3, Cooperative Skin Temp/Moisture Exam: Warm/Dry Sepsis Skin Exam (color): Normal for Ethnicity HEENT: Atraumatic, PERRLA, EOMI Neck: Supple Cardiovascular: Normal S1, Normal S2 Lungs: Clear to Auscultation Abdomen: Soft, No Tenderness Neurological: Normal Speech, Strength at 5/5 X4 Ext, Normal Tone Extremities: No Edema Pari Ojeda MD 07/01/17 1047: Addendum Addendum 72M PMH 4V CABG in 1998 with PCI to the circumflex in 2000 and a known graft occlusions to the circumflex and diagonal, HTN, HLD brought in for observation for left sided chest pain at rest radiating to left arm. Chest pain has resolved today and patient is asymptomatic and back to his baseline. Serial troponin were negative. EKG showed T-wave inversions in anterolateral leads. After discussion with cardiology, plan is to discharge patient home on a nitrate with outpatient follow up for stress test, and to return to ER if his symptoms return or worsen. Patient and in agreement with plan. 1. Unstable angina Plan - Stable for discharge home - Start Imdur 30mg daily - Continue home medications - Close follow up with cardiology, Dr. Smiht will arrange stress test
--- NOTE | 2017-07-01 10:41 | Cons- Cardiology ---
General Information and HPI Consulting Request Date of Consult: 07/01/17 Requested By: Pari Ojeda MD Reason for Consult: Chest pain Source of Information: patient, family, old records History of Present Illness: This is a very pleasant 72-year-old male with a past medical history 4V CABG in 1998 with PCI to the circumflex in 2000 and a known graft occlusions to the circumflex and diagonal, hypertension, hyperlipidemia, and PVCs with no inducible VT by EP study in 2011 who presents to [facility] with a chief complaint of left-sided chest discomfort of moderate intensity which occurred at rest; no radiation to the back or jaw and not associated with significant nausea or diaphoresis; no obvious exacerbating or alleviating factors; he did not take his home a nitroglycerin for this; denies reproducibility; no associated palpitations, headache, slurring of speech, focal weakness, or syncope. He is usually quite active with no recent decrease in exertional tolerance. On my interview with him in the emergency room his symptoms had resolved. Allergies/Medications Allergies: Coded Allergies: Penicillins (Intermediate, SWELLING 05/16/15) Home Med List: Amlodipine Besylate (Norvasc) 5 MG TABLET 1 TAB PO DAILY HEART (Reported) Aspirin (Children's Aspirin) 81 MG TAB.CHEW 1 TAB PO Q48 HEART HEALTH ( Reported) Atorvastatin Calcium (Lipitor) 20 MG TABLET 1 TAB PO DAILY HLD (Reported) Azilsartan Medoxomil (Edarbi) 40 MG TABLET 1 TAB PO DAILY Blood Pressure ( Reported) Cholecalciferol (Vitamin D3) 1,000 UNIT TABLET 1 TAB PO DAILY VITAMIN SUPPORT (Reported) Cyanocobalamin (Vitamin B-12) 1,000 MCG TABLET 1 TAB PO DAILY Supplement ( Reported) Cyclosporine (Restasis) 1 EACH DROPERETTE 1 GTT OPH BID Eye drops (Reported) Magnesium Oxide 400 MG TABLET 1 TAB PO DAILY SUPPLEMENT (Reported) Methylcellulose (Fiber Therapy) 500 MG TABLET 1 TAB PO DAILY SUPPLEMENT ( Reported) Metoprolol Tartrate (Lopressor) 50 MG TABLET 1.5 TAB PO BID Blood Pressure ( Reported) Mott-3 Fatty Acids (Fish Oil Concentrate) 1,000 MG CAPSULE 1 CAP PO DAILY SUPPLEMENT (Reported) Omeprazole 40 MG CAPSULE. 1 CAP PO DAILY GI (Reported) Current Medications: Current Medications Sig/Renetta Start time Last Medication Dose Route Stop Time Status Admin Acetaminophen 650 MG Q6P PRN 06/30 1900 AC PO Amlodipine Besylate 5 MG DAILY 07/01 0900 AC 07/01 PO 1006 Aspirin 81 MG Q48 07/02 0900 CAN PO Aspirin 81 MG DAILY 07/01 0900 AC 07/01 PO 1007 Aspirin 0 .STK-MED ONE 06/30 1548 DC PO Aspirin 325 MG ONCE ONE 06/30 1530 DC 06/30 PO 06/30 1531 1550 Atorvastatin Calcium 20 MG 1700 07/01 1700 AC PO Cholecalciferol 1,000 IU DAILY 07/01 0900 AC 07/01 PO 1006 Cyanocobalamin 1,000 MCG DAILY 07/01 0900 AC 07/01 PO 1006 Fish Oil 1,050 MG DAILY 07/01 0900 AC 07/01 PO 1006 Heparin Sodium 0 .STK-MED ONE 07/01 0527 DC (Porcine) .ROUTE Heparin Sodium 5,000 UNIT Q8 06/30 2200 AC 07/01 (Porcine) SC 0514 Heparin Sodium 0 .STK-MED ONE 07/01 2115 DC (Porcine) .ROUTE Losartan Potassium 50 MG DAILY 07/01 0900 AC 07/01 PO 1007 Magnesium Oxide 400 MG DAILY 07/01 0900 AC 07/01 PO 1007 Metoprolol Tartrate 0 .STK-MED ONE 06/30 211 DC PO Metoprolol Tartrate 0 .STK-MED ONE 06/30 2116 DC PO Metoprolol Tartrate 75 MG BID 06/30 2100 AC 07/01 PO 1007 Omeprazole 40 MG DAILY AC 07/01 0700 AC 07/01 PO 0602 Omeprazole 0 .STK-MED ONE 07/01 0528 DC PO Omeprazole 0 .STK-MED ONE 07/01 0527 DC PO Review of Systems Review of Systems: Review of systems as per HPI. The remainder of a 10 point review of systems was reviewed and was otherwise negative. 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 , Age 78; Cause: Throat cancer. FATHER, , Age 82; Cause: S/P mitral valve repair. Psychosocial History Who Do You Live With? spouse Services at Home: None Primary Language: Maori Smoking Status: Former Smoker ETOH Use: occasional use Living Will? no Power of Attache/HCP? no Functional Ability ADLs Independent: dressing, eating, toileting, bathing. Ambulation: independent IADLs Independent: shopping, housework, finances, food prep, telephone, transportation , medication admin. Exam & Diagnostic Data Vital Signs and I&O Vital Signs Date Time Temp Pulse Resp B/P B/P Pulse O2 O2 Flow FiO2 Mean Ox Delivery Rate 07/01 1007 130/82 07/01 1006 130/82 07/01 0739 98.4 74 18 132/70 96 Room Air 07/01 0553 97.5 56 20 146/69 96 Room Air 06/30 2343 98.4 62 18 137/65 95 Room Air 06/30 2115 98.0 76 20 160/72 95 Room Air 06/30 1921 98.2 71 20 156/82 95 Room Air 06/30 1732 97.7 58 20 152/74 96 Room Air 06/30 1443 98 Room Air Room Air 06/30 1443 52 18 176/76 98 Room Air Room Air 06/30 1337 96.6 57 20 132/83 99 Room Air 06/30 1130 96.8 59 18 148/83 96 Room Air Intake & Output 07/01 1600 07/01 0800 07/01 0000 06/30 1600 06/30 0800 06/30 0000 Intake Total 200 Output Total Balance 200 Intake, Oral 200 Patient 200 lb 200 lb Weight Weight Reported by Patient Measurement Method Physical Exam: General: no apparent distress. Alert. Eyes: No obvious scleral icterus. HEENT: No jugular venous distention or abnormal jugular venous pulsations. Cardiovascular: Normal intensity S1/S2. PMI not grossly displaced. Respiratory: Lungs clear to auscultation bilaterally. Abdomen: Soft, nontender with no guarding or rebound tenderness. Musculoskeletal: No clubbing or cyanosis noted Skin: No obvious rashes or ulcerations. Neurologic: No gross focal deficits noted. Lymph: No gross lymphadenopathy. Labs/Markel Results: Laboratory Tests 07/01 07/01 06/30 0535 013 2009 Chemistry Sodium (137 - 145 mmol/L) 140 Potassium (3.5 - 5.1 mmol/L) 4.4 Chloride (98 - 107 mmol/L) 107 Carbon Dioxide (22 - 30 mmol/L) 23 Anion Gap (5 - 16) 10 BUN (9 - 20 mg/dL) 18 Creatinine (0.7 - 1.2 mg/dL) 1.2 Estimated GFR (>60 ml/min) 59 L BUN/Creatinine Ratio (7 - 25 %) 15.0 Magnesium (1.6 - 2.3 mg/dL) 2.0 Troponin I (<0.11 ng/ml) < 0.01 < 0.01 Hematology CBC w Diff NO MAN DIFF REQ WBC (4.8 - 10.8 /CUMM) 9.8 RBC (4.70 - 6.10 /CUMM) 5.53 Hgb (14.0 - 18.0 G/DL) 15.9 Hct (42 - 52 %) 48.0 MCV (80.0 - 94.0 FL) 86.8 MCH (27.0 - 31.0 PG) 28.8 MCHC (33.0 - 37.0 G/DL) 33.2 RDW (11.5 - 14.5 %) 13.6 Plt Count (130 - 400 /CUMM) 229 MPV (7.4 - 10.4 FL) 8.4 Gran % (42.2 - 75.2 %) 60.5 Lymphocytes % (20.5 - 51.1 %) 26.5 Monocytes % (1.7 - 9.3 %) 10.2 H Eosinophils % (0 - 5 %) 2.5 Basophils % (0.0 - 2.0 %) 0.3 Absolute Granulocytes (1.4 - 6.5 /CUMM) 5.9 Absolute Lymphocytes (1.2 - 3.4 /CUMM) 2.6 Absolute Monocytes (0.10 - 0.60 /CUMM) 1.0 H Absolute Eosinophils (0.0 - 0.7 /CUMM) 0.2 Absolute Basophils (0.0 - 0.2 /CUMM) 0 06/30 1135 Chemistry Sodium (137 - 145 mmol/L) 142 Potassium (3.5 - 5.1 mmol/L) 4.6 Chloride (98 - 107 mmol/L) 106 Carbon Dioxide (22 - 30 mmol/L) 25 Anion Gap (5 - 16) 11 BUN (9 - 20 mg/dL) 16 Creatinine (0.7 - 1.2 mg/dL) 1.2 Estimated GFR (>60 ml/min) 59 L BUN/Creatinine Ratio (7 - 25 %) 13.3 Glucose (65 - 99 mg/dL) 94 Calcium (8.4 - 10.2 mg/dL) 10.3 H Total Bilirubin (0.2 - 1.3 mg/dL) 0.7 Direct Bilirubin (< 0.4 mg/dL) 0.5 H AST (17 - 59 U/L) 32 ALT (21 - 72 U/L) 49 Alkaline Phosphatase (< 127 U/L) 67 Troponin I (<0.11 ng/ml) < 0.01 Total Protein (6.3 - 8.2 g/dL) 7.2 Albumin (3.5 - 5.0 g/dL) 4.2 Lipase (23 - 300 U/L) 31 Coagulation PT (9.4 - 12.5 SEC) 11.8 INR (0.90 - 1.17) 1.08 APTT (25 - 37 SEC) 33 Hematology CBC w Diff NO MAN DIFF REQ WBC (4.8 - 10.8 /CUMM) 8.9 RBC (4.70 - 6.10 /CUMM) 5.57 Hgb (14.0 - 18.0 G/DL) 16.1 Hct (42 - 52 %) 47.7 MCV (80.0 - 94.0 FL) 85.6 MCH (27.0 - 31.0 PG) 28.9 MCHC (33.0 - 37.0 G/DL) 33.8 RDW (11.5 - 14.5 %) 13.8 Plt Count (130 - 400 /CUMM) 224 MPV (7.4 - 10.4 FL) 8.3 Gran % (42.2 - 75.2 %) 61.3 Lymphocytes % (20.5 - 51.1 %) 27.5 Monocytes % (1.7 - 9.3 %) 7.7 Eosinophils % (0 - 5 %) 2.7 Basophils % (0.0 - 2.0 %) 0.8 Absolute Granulocytes (1.4 - 6.5 /CUMM) 5.5 Absolute Lymphocytes (1.2 - 3.4 /CUMM) 2.4 Absolute Monocytes (0.10 - 0.60 /CUMM) 0.7 H Absolute Eosinophils (0.0 - 0.7 /CUMM) 0.2 Absolute Basophils (0.0 - 0.2 /CUMM) 0.1 Diagnostic Data EKG Results Tracing was personally reviewed and shows sinus rhythm at 69 bpm with nonspecific T-wave abnormality CXR Results No evidence of CHF. Other Results Abd CT: No acute abnormality CT scan abdomen and pelvis. There is diverticulosis of the colon but no acute change of the bowel. Assessment/Plan Assessment/Plan 1. Chest discomfort now resolved with negative serial troponins 2. 4V CABG in 1998 with PCI to the circumflex in 2000 and a known graft occlusions to the circumflex and diagonal 3. Hypertension and hyperlipidemia 4. PVCs with no inducible VT by EP study in 2011 The patient's chest discomfort has resolved and serial troponins remain within normal limits. We did discuss the possibility of repeat cardiac catheterization versus trial of antianginal agent with further risk stratification by outpatient echocardiogram and repeat nuclear stress test (nuclear stress test in 2017 had showed evidence of infarct without reversible ischemia). Risks versus benefits reviewed at length. At this time he would like to try additional medical therapy and outpatient nuclear stress test. Recommend adding Imdur 30 mg p.o. daily to his current cardiac regimen. We will plan for the outpatient nuclear stress test and echocardiogram and he will follow-up in our office within 1 week. He is advised to return to the hospital immediately via 911 with any new or recurrent symptoms. Plan was discussed with the medical team and we are in agreement. Darrel Smith MD [facility] Consult Acknowledgment - Thank you for your consult request.
--- NOTE | 2017-07-01 10:46 | PN- Cardiology ---
Subjective Subjective: Resting comfortably in bed with no complaints this morning. Objective Vital Signs and I&Os Vital Signs Date Time Temp Pulse Resp B/P B/P Pulse O2 O2 Flow FiO2 Mean Ox Delivery Rate 07/01 1007 130/82 07/01 1006 130/82 07/01 0739 98.4 74 18 132/70 96 Room Air 07/01 0553 97.5 56 20 146/69 96 Room Air 06/30 2343 98.4 62 18 137/65 95 Room Air 06/30 2115 98.0 76 20 160/72 95 Room Air 06/30 1921 98.2 71 20 156/82 95 Room Air 06/30 1732 97.7 58 20 152/74 96 Room Air 06/30 1443 98 Room Air Room Air 06/30 1443 52 18 176/76 98 Room Air Room Air 06/30 1337 96.6 57 20 132/83 99 Room Air 06/30 1130 96.8 59 18 148/83 96 Room Air Intake & Output 07/01 1600 07/01 0800 07/01 0000 06/30 1600 06/30 0800 06/30 0000 Intake Total 200 Output Total Balance 200 Intake, Oral 200 Patient 200 lb 200 lb Weight Weight Reported by Patient Measurement Method Physical Exam: General: no apparent distress. Alert. Eyes: No obvious scleral icterus. HEENT: No jugular venous distention or abnormal jugular venous pulsations. Cardiovascular: Normal intensity S1/S2. Irregular Respiratory: No rales or rhonchi Abdomen: Soft, nontender with no guarding or rebound tenderness. Musculoskeletal: No clubbing or cyanosis noted Skin: Warm Neurologic: No gross focal deficits noted. Current Medications: Current Medications Sig/Renetta Start time Last Medication Dose Route Stop Time Status Admin Acetaminophen 650 MG Q6P PRN 06/30 1900 AC PO Amlodipine Besylate 5 MG DAILY 07/01 09 AC 07/01 PO 1006 Aspirin 81 MG Q48 07/02 0900 CAN PO Aspirin 81 MG DAILY 07/01 09 AC 07/01 PO 1007 Aspirin 0 .STK-MED ONE 06/30 1548 DC PO Aspirin 325 MG ONCE ONE 06/30 1530 DC 06/30 PO 06/30 1531 1550 Atorvastatin Calcium 20 MG 1700 07/01 1700 AC PO Cholecalciferol 1,000 IU DAILY 07/01 09 AC 07/01 PO 1006 Cyanocobalamin 1,000 MCG DAILY 07/01 09 AC 07/01 PO 1006 Fish Oil 1,050 MG DAILY 07/01 09 AC 07/01 PO 1006 Heparin Sodium 0 .STK-MED ONE 07/01 05 DC (Porcine) .ROUTE Heparin Sodium 5,000 UNIT Q8 06/300 AC 07/01 (Porcine) SC 0514 Heparin Sodium 0 .STK-MED ONE 07/01 2115 DC (Porcine) .ROUTE Losartan Potassium 50 MG DAILY 07/01 09 AC 07/01 PO 1007 Magnesium Oxide 400 MG DAILY 07/01 09 AC 07/01 PO 1007 Metoprolol Tartrate 0 .STK-MED ONE 07/01 2115 DC PO Metoprolol Tartrate 0 .STK-MED ONE 07/01 2115 DC PO Metoprolol Tartrate 75 MG BID 06/30 2099 AC 07/01 PO 1007 Omeprazole 40 MG DAILY AC 07/01 07 AC 07/01 PO 0602 Omeprazole 0 .STK-MED ONE 07/02 527 DC PO Omeprazole 0 .STK-MED ONE 07/01 526 DC PO Results Last 48 Hrs of Labs/Mics: Laboratory Tests 07/01/17 0535: Anion Gap 10, Estimated GFR 59 L, BUN/Creatinine Ratio 15.0, Magnesium 2.0, CBC w Diff NO MAN DIFF REQ, RBC 5.53, MCV 86.8, MCH 28.8, MCHC 33.2, RDW 13.6, MPV 8.4, Gran % 60.5, Lymphocytes % 26.5, Monocytes % 10.2 H, Eosinophils % 2.5, Basophils % 0.3, Absolute Granulocytes 5.9, Absolute Lymphocytes 2.6, Absolute Monocytes 1.0 H, Absolute Eosinophils 0.2, Absolute Basophils 0 07/01/17 0135: Troponin I < 0.01 06/30/17 2010: Troponin I < 0.01 06/30/17 1135: Anion Gap 11, Estimated GFR 59 L, BUN/Creatinine Ratio 13.3, Glucose 94, Calcium 10.3 H, Total Bilirubin 0.7, Direct Bilirubin 0.5 H, AST 32, ALT 49, Alkaline Phosphatase 67, Troponin I < 0.01, Total Protein 7.2, Albumin 4.2, Lipase 31, PT 11.8, INR 1.08, APTT 33, CBC w Diff NO MAN DIFF REQ, RBC 5.57, MCV 85.6, MCH 28.9, MCHC 33.8, RDW 13.8, MPV 8.3, Gran % 61.3, Lymphocytes % 27.5, Monocytes % 7.7, Eosinophils % 2.7, Basophils % 0.8, Absolute Granulocytes 5.5, Absolute Lymphocytes 2.4, Absolute Monocytes 0.7 H, Absolute Eosinophils 0.2, Absolute Basophils 0.1 Recent Imaging Studies: Telemetry tracings were personally reviewed and show atrial fibrillation/flutter with grossly controlled average ventricular response rate with some tachycardia spikes Echocardiogram Left ventricular cavity size normal. Left ventricular wall thickness mildly increased. No obvious regional wall motion abnormalities. Borderline normal left ventricular ejection fraction estimated at 50 %. Mild right atrial dilatation. Mild left atrial dilatation. No obvious pulmonary hypertension. No pericardial effusion. James Smith M.D. (Electronically Signed) Final Date: 01 July 2017 09:09 Assessment/Plan Assessment/Plan 1. New onset symptomatic atrial flutter 2. 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 Active cigarette use 4. EtOH dependence 5. History of coronary artery calcifications 6. Atypical chest discomfort CTA negative for aortic dissection troponins are negative Patient is resting comfortably this morning without complaints. Heart rate control is borderline and I agree with increasing the metoprolol to 25 mg's p.o. twice daily as he has no evidence of bronchospasm on exam. He is tolerating the Xarelto. I discussed the possibility of inpatient cardioversion versus considering outpatient procedure; at this time he would like to see if he spontaneously converts on his own before proceeding with cardioversion; he will follow-up in our office within 1 week and if he does not convert to sinus rhythm we will consider outpatient cardioversion versus proceeding directly to ablation. Discussed the critical importance of smoking cessation and decreased alcohol use. Advised to return to the hospital immediately via 911 with any new or recurrent symptoms. Discussed with the medical team and we are in agreement. Darrel Smith MD [facility] Continue telemetry? No
[2017-07-01 10:48] VITALS: BP 130/62
--- NOTE | 2017-07-01 11:12 | Patient Discharge Instructions ---
Discharge Instructions General Discharge Information You were seen/treated for: New onset atrial flutter Chest pain Watch for these problems: Chest pain, palpitation, sweating, nausea, vomiting, lightheadedness and weakness. Special Instructions: -Follow-up with her primary care physician in one week. -Follow-up with the power hammer operator in one week and discuss for outpatient procedure for atrial flutter. Also discussed about the outpatient cardiac stress test. -Smoking cessation and decrease use of alcohol -Take xeralto with food. Diet Recommended Diet: Heart Healthy Activity Activity Self Limited: Yes Acute Coronary Syndrome Inclusion Criteria At DC or during hospital stay patient has or had the following: ACS DIAGNOSIS No Discharge Core Measures Meds if any: Prescribed or Continued at Discharge Meds if any: NOT Prescribed or Continued at Discharge Congestive Heart Failure Inclusion Criteria At DC or during hospital stay patient has or had the following: CHF DIAGNOSIS No Discharge Core Measures Meds if any: Prescribed or Continued at Discharge Meds if any: NOT Prescribed or Continued at Discharge Cerebrovascular accident Inclusion Criteria At DC or during hospital stay patient has or had the following: CVA/TIA Diagnosis No Discharge Core Measures Meds if any: Prescribed or Continued at Discharge Meds if any: NOT Prescribed or Continued at Discharge Venous thromboembolism Inclusion Criteria VTE Diagnosis No VTE Type NONE VTE Confirmed by (Test) NONE Discharge Core Measures - Per Current guidelines, there needs to be overlap - treatment for the first 5 days of Warfarin therapy. - If discharged on Warfarin prior to 5 days of - overlap therapy, the patient will need to be - assessed for post discharge needs including - *Post discharge parental anticoagulation - *Warfarin and/or parental anticoagulation education - *Follow up date to check INR post discharge At least 5 days overlap therapy as Inpatient No Meds if any: Prescribed or Continued at Discharge Note: Overlap Therapy is Warfarin and Anticoagulant Meds if any: NOT Prescribed or Continued at Discharge
[2017-07-01] MEDS ORDERED: LOPRESSOR100 M1 PO (11:36)
[2017-07-01] MEDS ORDERED: XARELTO20 M2 PO (11:36)
[2017-07-01] MEDS ORDERED: ISOSORBIDE MONO30 M1 PO (11:42)
[2017-07-01 12:17] VITALS: BP 134/80
== END 2017-07-01 12:36 ==
LOC: ERH 10:42 → ERHI 17:33 → CANBEDREQ 07-01 10:32 → ERHI 07-01 12:36
PROVIDERS: Emergency Medicine; Internal Medicine Interventional Cardiology
DX: I48.92 Unspecified atrial flutter (principal); R07.9 Chest pain, unspecified; K21.9 Gastro-esophageal reflux disease without esophagitis; M19.90 Unspecified osteoarthritis, unspecified site; Z79.82 Long term (current) use of aspirin; I25.2 Old myocardial infarction; K57.90 Diverticulosis of intestine, part unspecified, without perforation or abscess without bleeding; E66.9 Obesity, unspecified; I48.0 Paroxysmal atrial fibrillation; I25.10 Atherosclerotic heart disease of native coronary artery without angina pectoris; Z95.1 Presence of aortocoronary bypass graft; Z95.5 Presence of coronary angioplasty implant and graft; I10 Essential (primary) hypertension; E78.5 Hyperlipidemia, unspecified; J44.9 Chronic obstructive pulmonary disease, unspecified; J43.9 Emphysema, unspecified; I49.3 Ventricular premature depolarization; F17.200 Nicotine dependence, unspecified, uncomplicated; F10.20 Alcohol dependence, uncomplicated; Z79.01 Long term (current) use of anticoagulants
CPT/HCPCS: 71046; 74176; 82436; 93005; 93010; 96372; G0378; J1644; J3490

== ENCOUNTER 2017-07-07 00:11 | Emergency (ER) | payer OTHER, MEDICARE ==
[~2017-07-07] VITALS: Ht 170.2 cm; Wt 72.6 kg
[~2017-07-07 00:11] MED LIST changes: +ISOSORBIDE MONO30 M1 PO; +LOPRESSOR100 M1 PO; +XARELTO20 M2 PO
--- NOTE | 2017-07-07 00:25 | ED GI/GU/ABDOMINAL COMPLAINT ---
History of Present Illness General Chief Complaint: Abdominal Pain/Flank Pain Stated Complaint: "MY STOMACH IS KILLING ME" DENIES N/V/D Source: patient Exam Limitations: no limitations Vital Signs & Intake/Output Vital Signs & Intake/Output Vital Signs Date Time Temp Pulse Resp B/P B/P Pulse O2 O2 Flow FiO2 Mean Ox Delivery Rate 07/07 0022 96 Room Air 07/07 0018 97.8 91 18 179/72 96 Room Air Allergies Coded Allergies: Penicillins (Intermediate, SWELLING 05/16/15) Reconcile Medications Amlodipine Besylate (Norvasc) 5 MG TABLET 1 TAB PO DAILY HEART (Reported) Aspirin (Children's Aspirin) 81 MG TAB.CHEW 1 TAB PO Q48 HEART HEALTH ( Reported) Atorvastatin Calcium (Lipitor) 20 MG TABLET 1 TAB PO DAILY HLD (Reported) Azilsartan Medoxomil (Edarbi) 40 MG TABLET 1 TAB PO DAILY Blood Pressure ( Reported) Cholecalciferol (Vitamin D3) 1,000 UNIT TABLET 1 TAB PO DAILY VITAMIN SUPPORT (Reported) Cyanocobalamin (Vitamin B-12) 1,000 MCG TABLET 1 TAB PO DAILY Supplement ( Reported) Cyclosporine (Restasis) 1 EACH DROPERETTE 1 GTT OPH BID Eye drops (Reported) Isosorbide Mononitrate (Isosorbide Mononitrate ER) 30 MG TAB.ER.24H 1 TAB PO DAILY CHEST PAIN Magnesium Oxide 400 MG TABLET 1 TAB PO DAILY SUPPLEMENT (Reported) Methylcellulose (Fiber Therapy) 500 MG TABLET 1 TAB PO DAILY SUPPLEMENT ( Reported) Metoprolol Tartrate (Lopressor) 100 MG TABLET 1 TAB PO BID Heart rate Fingal-3 Fatty Acids (Fish Oil Concentrate) 1,000 MG CAPSULE 1 CAP PO DAILY SUPPLEMENT (Reported) Omeprazole 40 MG CAPSULE.DR 1 CAP PO DAILY GI (Reported) Rivaroxaban (Xarelto) 20 MG TABLET 1 TAB PO QPM Blood thinner with food Triage Note: PT FROM HOME C/O ABD PAIN. PT WAS SEEN HERE 5 DAYS IN ER FOR THE SAME. PT STATES AROUNS 1999 HE NOTICED THE ABD PAIN THAT BEGINS MID ABD AND RADIATES DOWN. PT DENIES N/V/D. PT IS ABLE TO TOLERATE LIQUIDS AND FOOD. PT STATES HE TOOK 1 PERCOCET TONIGHT WITHOUT RELIEF. PT STATES "CAN YOU GUYS JUST GET IT RIGHT THIS TIME". PT FELT RELIEF LAST VISIT WITH A GI COCKTAIL. Triage Nurses Notes Reviewed? yes Duration: hour(s):, waxing and waning Timing: recent history Quality/Severity: cramping Location: generalized abdomen Radiation: no radiation Prior Abdominal Problems: similar symptoms Modifying Factors: Worsens With: palpation. Associated Symptoms: abdominal pain HPI: 72 yo gentleman, h/o pancreatitis, afib, presents with 1 day history of abdominal discomfort and distention. "I felt uncomfortable throughout the day, but then around 8pm, my pain and swelling got worse." "The Gi cocktail worked great last time." No nausea, vomiting, diarrhea, fever, chills, chest pain. Past History Travel History Traveled to [place] past 21 day No Medical History Any Pertinent Medical History? 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 , Age 78; Cause: Throat cancer. FATHER, , Age 82; Cause: S/P mitral valve repair. Hx Contributory? No Review of Systems Review of Systems Constitutional: Reports: no symptoms. EENTM: Reports: no symptoms. Respiratory: Reports: no symptoms. Cardiovascular: Reports: no symptoms. GI: Reports: no symptoms. Genitourinary: Reports: no symptoms. Musculoskeletal: Reports: no symptoms. Skin: Reports: no symptoms. Neurological/Psychological: Reports: no symptoms. Hematologic/Endocrine: Reports: no symptoms. Immunologic/Allergic: Reports: no symptoms. All Other Systems: Reviewed and Negative Physical Exam Physical Exam General Appearance: well developed/nourished, mild distress Head: atraumatic, normal appearance Eyes: Bilateral: normal appearance. Ears, Nose, Throat, Mouth: hearing grossly normal, moist mucous membrane Neck: normal inspection, supple, full range of motion Respiratory: normal breath sounds, chest non-tender, no respiratory distress, quiet respiration, lungs clear Cardiovascular: regular rate/rhythm Gastrointestinal: normal bowel sounds, soft, distension, distant bowel sounds. diffuse tenderness to palpation. Back: normal inspection Extremities: normal range of motion Neurologic/Psych: no motor/sensory deficits, awake, alert, oriented x 3 Skin: intact, normal color, warm/dry Core Measures ACS in differential dx? No Sepsis Present: No Sepsis Focused Exam Completed? No Progress Differential Diagnosis: ileus vs sbo vs other. Plan of Care: Orders Procedure Date/time Status TROPONIN LEVEL 07/07 24 Complete LIPASE 07/07 24 Complete LACTIC ACID 07/07 24 Complete HEPATIC FUNCTION PANEL 07/07 24 Complete CBC WITHOUT DIFFERENTIAL 07/07 24 Complete BASIC METABOLIC PANEL 07/07 24 Complete AMYLASE 07/07 24 Complete EKG 07/07 24 Active Laboratory Tests 07/07/17 0031: Anion Gap 16, Estimated GFR 59 L, BUN/Creatinine Ratio 15.0, Glucose 133 H, Lactic Acid 1.0, Calcium 10.0, Total Bilirubin 0.8, Direct Bilirubin 0.5 H, AST 25, ALT 34, Alkaline Phosphatase 71, Troponin I < 0.01, Total Protein 7.3, Albumin 4.1, Amylase 60, Lipase 235, CBC w Diff NO MAN DIFF REQ, RBC 5.36, MCV 85.4, MCH 28.8, MCHC 33.8, RDW 14.3, MPV 8.7, Gran % 69.8, Lymphocytes % 19.3 L , Monocytes % 8.6, Eosinophils % 1.6, Basophils % 0.7, Absolute Granulocytes 9.3 H, Absolute Lymphocytes 2.6, Absolute Monocytes 1.2 H, Absolute Eosinophils 0.2, Absolute Basophils 0.1 Diagnostic Imaging: Viewed by Me: Radiology Read, CT Scan. Discussed w/RAD: Radiology Read, CT Scan. CXR Impression: PATIENT: ISSAC ALATORRE PRESENT AGE: 72 PATIENT ACCOUNT NO: [id number] : 43 LOCATION: [facility] ORDERING PHYSICIAN: Antolin Tong MD SERVICE DATE: 07/07/17 EXAM TYPE: RAD - XRY-PORTABLE CHEST XRAY EXAMINATION: XR PORTABLE CHEST CLINICAL INFORMATION: Chest pain COMPARISON: 06/30/2017 TECHNIQUE: Portable frontal view of the chest was obtained. FINDINGS: Lung volumes are symmetric. No focal consolidation is seen. No evidence of pneumothorax, pleural effusion, or pulmonary edema. Cardiac size appears near the upper limits of normal. Sternal wires are present. No acute osseous findings are seen. IMPRESSION: No acute findings identified. DICTATED BY: Ariel Dow MD DATE/TIME DICTATED:07/07/17137 PADDER CUSHION:BETTY DATE/TIME TRANSCRIBED:07/07/17137 CONFIDENTIAL, DO NOT COPY WITHOUT APPROPRIATE AUTHORIZATION. <Electronically signed in Other Vendor System> SIGNED BY: Ariel Dow MD 07/07/17 0143 Initial ED EKG: nsr, non specific st changes, biphasic p wave in v1 Departure Departure Disposition: HOME OR SELF CARE Condition: Stable Clinical Impression Primary Impression: Abdominal pain Secondary Impressions: Chronic pancreatitis Referrals: Chely SALVADOR,Garland Lopez (PCP/Family) Departure Forms: Customer Survey General Discharge Information Comments 07/07/17, 2:29am... pt feels better after gi cocktail... i wrote for him a 50cc amount of viscious lidocaine to take 2 tsp mixed with 3tsp of maalox (hand written rx, unable to send). encouraged close follow up.
[2017-07-07 00:53] LABS: ABSOLUTE BASOPHIL COUNT 0.1 /CUMM (0.0-0.2); ABSOLUTE EOSINOPHIL COUNT 0.2 /CUMM (0.0-0.7); ABSOLUTE GRANULOCYTE CT 9.3 /CUMM (1.4-6.5); ABSOLUTE LYMPH COUNT 2.6 /CUMM (1.2-3.4); ABSOLUTE MONOCYTE COUNT 1.2 /CUMM (0.10-0.60); BASOPHIL % 0.7 % (0.0-2.0); EOSINOPHIL % 1.6 % (0-5); GRANULOCYTE % 69.8 % (42.2-75.2); HEMATOCRIT 45.8 % (42-52); MEAN CORPUSCULAR HGB 28.8 PG (27.0-31.0); MEAN CORPUSCULAR HGB CONC 33.8 G/DL (33.0-37.0); MEAN CORPUSCULAR VOLUME 85.4 FL (80.0-94.0); MEAN PLATELET VOLUME 8.7 FL (7.4-10.4); PLATELET COUNT 244 /CUMM (130-400); RBC DISTRIBUTION WIDTH 14.3 % (11.5-14.5); RED BLOOD CELL CT 5.36 /CUMM (4.70-6.10); WHITE BLOOD CELL COUNT 13.4 /CUMM (4.8-10.8)
--- NOTE | 2017-07-07 01:43 | RADIOLOGY REPORT ---
EXAMINATION: XR PORTABLE CHEST CLINICAL INFORMATION: Chest pain COMPARISON: 06/30/2017 TECHNIQUE: Portable frontal view of the chest was obtained. FINDINGS: Lung volumes are symmetric. No focal consolidation is seen. No evidence of pneumothorax, pleural effusion, or pulmonary edema. Cardiac size appears near the upper limits of normal. Sternal wires are present. No acute osseous findings are seen. IMPRESSION: No acute findings identified.
--- NOTE | 2017-07-07 01:52 | CT SCAN REPORT ---
EXAMINATION: CT ABDOMEN AND PELVIS WITHOUT CONTRAST CLINICAL INFORMATION: Abdominal distention and pain COMPARISON: 06/30/2017 TECHNIQUE: Multidetector volumetric imaging was performed from the superior aspect of the liver through the pubic symphysis. Sagittal and coronal reformatted images were obtained on the technologist's workstation. DLP: 574.87 mGy-cm FINDINGS: LUNG BASES: There is mild dependent atelectasis at the lung bases. LIVER, GALLBLADDER, AND BILIARY TREE: The liver is normal in size, shape, and attenuation. No focal hepatic lesion or biliary ductal dilatation is present. The gallbladder appears contracted and is not well evaluated. PANCREAS: The pancreatic duct appears dilated to approximately 7 mm. A few calcifications are also noted along the pancreas, suspicious for chronic pancreatitis. Assess for underlying pancreatic mass is limited in the absence of intravenous contrast. There is mild peripancreatic stranding which appears new from prior, concerning for mild pancreatitis in the proper clinical setting. SPLEEN: Unremarkable. ADRENAL GLANDS: Unremarkable. KIDNEYS AND URETERS: The kidneys are normal in size, shape, and attenuation. No hydronephrosis, hydroureter, or calculi seen. Bilateral renal cysts are noted. No perinephric stranding. BLADDER: Unremarkable. GASTROINTESTINAL TRACT: Colonic diverticulosis is noted. The small and large bowel are otherwise unremarkable without evidence of obstruction or pericolonic inflammatory change. The appendix is unremarkable. No free fluid or free air is seen. ABDOMINAL WALL: Small fat-containing inguinal hernias are present, left greater than right. LYMPH NODES: Normal. VASCULAR: There is atherosclerotic calcification along the aorta and iliac arteries. Mild focal dilation of the infrarenal abdominal aorta is again noted. PELVIC VISCERA: Unremarkable. OSSEOUS STRUCTURES: Degenerative changes are noted in the spine. IMPRESSION: 1. Mild peripancreatic stranding, concerning for mild pancreatitis in the proper clinical setting. Additional findings suggestive of underlying chronic pancreatitis. 2. Colonic diverticulosis.
[2017-07-07 02:35] VITALS: BP 166/71
== END 2017-07-07 02:35 ==
LOC: ERH 00:11
PROVIDERS: Pediatrics
DX: K86.1 Other chronic pancreatitis (principal)
CPT/HCPCS: 71045; 74176; 93005; 93010

== ENCOUNTER 2017-07-08 21:47 | Inpatient (IN) | payer OTHER, MEDICARE ==
[~2017-07-08] VITALS: Ht 170.2 cm; Wt 88.9 kg
--- NOTE | 2017-07-08 22:38 | ED AMS/SEIZURE/WEAK/DIZZY ---
History of Present Illness General Chief Complaint: Altered Mental Status Stated Complaint: CONFUSION,LOSS OF APPETITE,"HALLUCINATIONS" Source: patient, old records Exam Limitations: no limitations Vital Signs & Intake/Output Vital Signs & Intake/Output Vital Signs Date Time Temp Pulse Resp B/P B/P Pulse O2 O2 Flow FiO2 Mean Ox Delivery Rate 07/09 0404 98 Room Air 07/09 0355 98.0 86 18 110/70 98 Room Air 07/09 0248 99.0 98 18 101/55 98 07/09 0039 100.5 62 20 108/55 95 Room Air Room Air 07/08 2335 100.4 07/08 2311 97 Room Air 07/08 2203 100.4 113 14 95/58 94 Room Air ED Intake and Output 07/09 0000 07/08 1200 Intake Total Output Total Balance Patient 200 lb Weight Weight Reported by Patient Measurement Method Allergies Coded Allergies: Penicillins (Intermediate, SWELLING 05/16/15) Reconcile Medications Amlodipine Besylate (Norvasc) 5 MG TABLET 1 TAB PO DAILY HEART (Reported) Aspirin (Children's Aspirin) 81 MG TAB.CHEW 1 TAB PO Q48 HEART HEALTH ( Reported) Atorvastatin Calcium (Lipitor) 20 MG TABLET 1 TAB PO DAILY HLD (Reported) Azilsartan Medoxomil (Edarbi) 40 MG TABLET 1 TAB PO DAILY Blood Pressure ( Reported) Cholecalciferol (Vitamin D3) 1,000 UNIT TABLET 1 TAB PO DAILY VITAMIN SUPPORT (Reported) Cyanocobalamin (Vitamin B-12) 1,000 MCG TABLET 1 TAB PO DAILY Supplement ( Reported) Cyclosporine (Restasis) 1 EACH DROPERETTE 1 GTT OPH BID Eye drops (Reported) Isosorbide Mononitrate (Isosorbide Mononitrate ER) 30 MG TAB.ER.24H 1 TAB PO DAILY CHEST PAIN Magnesium Oxide 400 MG TABLET 1 TAB PO DAILY SUPPLEMENT (Reported) Methylcellulose (Fiber Therapy) 500 MG TABLET 1 TAB PO DAILY SUPPLEMENT ( Reported) Metoprolol Tartrate (Lopressor) 100 MG TABLET 1 TAB PO BID Heart rate [place]-3 Fatty Acids (Fish Oil Concentrate) 1,000 MG CAPSULE 1 CAP PO DAILY SUPPLEMENT (Reported) Omeprazole 40 MG CAPSULE.DR 1 CAP PO DAILY GI (Reported) Rivaroxaban (Xarelto) 20 MG TABLET 1 TAB PO QPM Blood thinner with food Triage Note: PT PRESENTS TO THE ER PER SPOUSE PT WAS HERE THE OTHER NIGHT FOR BELLY PAIN..PT WAS SEEN AT [place] YESTERDAY AND THEY SENT HIM HOME.. PT STATES THAT HE HAS NOT BEEN EATING AND PT CANT STAND AND WALK AND IN INCREASINGLY CONFUSED. Triage Nurses Notes Reviewed? yes Onset: Gradual Duration: day(s): Timing: recent history Injury Environment: home Severity: moderate HPI: 72YO MALE with hx of pancreatitis, CAD s/p CABG presents to ED complaining of altered mental status. Patient was seen and evaluated early yesterday morning for periumbilical abdominal pain and had CT image performed which showed likely mild pancreatitis. At the time patient was feeling okay and was discharged home. Patient's states that she came home tonight and the patient was hallucinating and seemed very confused. Patient states he had persistent pain today despite GI cocktail. Patient was unable to eat or drink today due to nausea and fear of vomiting. Patient has a history of requiring hospital admission for pancreatitis, unknown cause. Patient's states that she thought he had a fever earlier today. Patient reports dyspnea today. They deny chest pain, diarrhea, constipation. (Rabia SIMMS,Kelley Salazar) Past History Travel History Traveled to [place] past 21 day No Medical History Any Pertinent Medical History? 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 , Age 78; Cause: Throat cancer. FATHER, , Age 82; Cause: S/P mitral valve repair. Hx Contributory? No (Kelley Soriano) Review of Systems Review of Systems Constitutional: Reports: see HPI. EENTM: Reports: no symptoms. Respiratory: Reports: no symptoms. Cardiovascular: Reports: no symptoms. GI: Reports: see HPI. Genitourinary: Reports: no symptoms. Musculoskeletal: Reports: no symptoms. Skin: Reports: no symptoms. Neurological/Psychological: Reports: see HPI. Hematologic/Endocrine: Reports: no symptoms. Immunologic/Allergic: Reports: no symptoms. All Other Systems: Reviewed and Negative (Rabia SIMMS,Kelley Salazar) Physical Exam Physical Exam General Appearance: well developed/nourished, no apparent distress, alert, awake Head: atraumatic, normal appearance Eyes: Bilateral: normal appearance, PERRL, EOMI. 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 Yes CVA/TIA Diagnosis No Sepsis Present: No Sepsis Focused Exam Completed? No (Rabia SIMMS,Kelley Salazar) Progress Differential Diagnosis: anemia, dehydration, drug intoxication, hypoglycemia, intracranial Hem., pneumonia, UTI/pyelo, pancreatitis, cholecystitis, choleangitis, sepsis Plan of Care: Orders Procedure Date/time Status Nothing by Mouth 07/09 B Active THYROID STIMULATING HORMONE 07/09 0500 Active LIPID PANEL 07/09 0500 Active LACTIC ACID 07/09 0500 Active ICU LAB BUNDLE 07/09 0500 Active FREE T4 07/09 0500 Active CBC WITHOUT DIFFERENTIAL 07/09 0500 Active ACTIVE SURVEILLANCE NARES 07/09 0325 Active RAPID VIRAL INFLUENZA A 07/09 0303 Active CULTURE,URINE 07/09 0303 Active NIH Stroke Scale 07/09 0302 Active PT Evaluate & Treat 07/09 0301 Active Saline Lock 07/09 0301 Active Pathway - chart 07/09 0301 Active House Staff 07/09 0301 Active EKG 07/09 0301 Active Code Status 07/09 0301 Active Wound Care/Dressing 07/09 0247 Complete Weight 07/09 0247 Active VTE Mechanical Prophylaxis 04/26 0247 Complete Vital Signs 07/09 246 Active Turn and Reposition 07/09 246 Active Drains/Tubes 07/09 246 Complete Teach/Educate 07/09 246 Active Skin Integrity Protocol 07/09 246 Active Skin/Pressure Ulcer Assess (Sk 07/09 246 Active Precautions 07/09 246 Active Pain Treatment and Response 07/09 246 Active Nutritional Intake, Monitor 07/09 246 Active Isolation 07/09 246 Active CIWA 07/09 246 Complete Patient Care Conference 07/09 246 Active Activity/Ambulation 07/09 246 Active Patient Data 07/09 0148 Active LACTIC ACID 07/09 126 Complete Admit to inpatient 07/09 124 Active Add-on Test (ER Only) 07/09 105 Active US-LIMITED ABDOMEN 07/09 UNK Active Lab Add-on Test 07/09 UNK Active VTE Mechanical Prophylaxis 07/09 UNK Active Vital Signs 07/09 UNK Complete Intake & Output 07/09 UNK Complete AMMONIA 07/08 2339 Active Add-on Test (ER Only) 07/08 2325 Active Intake & Output 07/08 2233 Active BLOOD CULTURE 07/08 2226 Active URINE DRUGS OF ABUSE 07/08 2227 Active URINALYSIS 07/08 2227 Active TROPONIN LEVEL 07/08 2227 Complete TRIGLYCERIDES 07/08 2227 Complete LIPASE 07/08 2227 Complete LACTIC ACID 07/08 2227 Complete ETHANOL 07/08 2227 Complete COMPREHENSIVE METABOLIC PANEL 07/08 2226 Complete CBC WITHOUT DIFFERENTIAL 07/08 222 Complete AMYLASE 07/08 2227 Complete EKG 07/08 2226 Active PARTIAL THROMBOPLASTIN TIME 07/08 2220 Active PROTHROMBIN TIME 07/08 2220 Active DIRECT BILIRUBIN 07/08 2220 Complete Current Medications Sig/Renetta Start time Last Medication Dose Stop Time Status Admin Senna/Docusate Sodium 1 TAB AT BEDTIME 07/09 2100 UNVr (Senokot S) Atorvastatin Calcium 20 MG DAILY 07/09 899 UNVr (Lipitor) Docusate Sodium 100 MG BID 07/09 899 UNVr (Colace) Pantoprazole Sodium 40 MG DAILY 07/09 899 UNVr (Protonix) Ceftriaxone Sodium 1,000 MG DAILY 07/09 414 UNVr (Rocephin) Metronidazole 500 MG IQ8 07/09 414 UNVr (Flagyl) N/A 1 UNIT (No Carrier) Acetaminophen 650 MG Q6P PRN 07/09 299 UNVr (Tylenol) Acetaminophen 1,000 MG Q6P PRN 07/09 299 UNVr (Ofirmev) Ondansetron HCl 4 MG Q8P PRN 07/09 299 UNVr (Zofran) Sodium Chloride 1,000 ML .Q10H 07/09 299 UNVr (Normal Saline 0.9%) Laboratory Tests 07/09/17 0145: Lactic Acid 2.1 07/08/172219: Anion Gap 17 H, Estimated GFR 54 L, BUN/Creatinine Ratio 13.1, Glucose 116 H, Lactic Acid 3.0 H, Calcium 10.0, Total Bilirubin 2.3 H, Direct Bilirubin 1.1 H, AST 38, ALT 36, Alkaline Phosphatase 89, Troponin I 0.04, Total Protein 7.5, Albumin 4.3, Globulin 3.2, Albumin/Globulin Ratio 1.3, Triglycerides 83, Amylase 33, Lipase 143, CBC w Diff NO MAN DIFF REQ, RBC 5.69, MCV 86.0, MCH 28.9, MCHC 33.6, RDW 14.0, MPV 9.0, Gran % 93.1 H, Lymphocytes % 5.4 L, Monocytes % 1.5 L, Eosinophils % 0, Basophils % 0, Absolute Granulocytes 11.1 H, Absolute Lymphocytes 0.6 L, Absolute Monocytes 0.2, Absolute Eosinophils 0, Absolute Basophils 0, Serum Alcohol < 10.0 Microbiology 07/09 324 UPPER RESP: Surveillance Culture - COLB 07/09 324 GI: Surveillance Culture - CAN Cancelled: Cancelled via OE: PT REFUSED 07/09 302 URINE ROUT: Urine Culture - COLB 07/09 302 NASOPHARYN: Influenza Virus A & B Rapid Smear - COLB 07/08 2229 BLOOD: Blood Culture - RECD 07/09 2219 BLOOD: Blood Culture - RECD reports the patient has improved however still not at his baseline mental status. Spoke with radiologist regarding head CT image - TRACE AMOUNT OF SUBARACHNOID BLEEDING IN HIGH LEFT FRONTAL LOBE which appears acute although does not appear to be a spontaneous aneurysm rupture. These are typically consistent with history of trauma. The patient is denying any possibility of trauma or fall however it is unknown if the patient fell during episode of altered status and delirium earlier today. Patient has not taken his Xarelto for the past 2 days. Awaiting neurosurgery page. Spoke with Dr. Maria regarding this patient - VERY subtle, she is not convinced this is subarachnoid, nonsurgical case, recommends neurology consult, Head MRI/MRA, close neuro checks. Spoke with Dr. Lackey regarding this patient's admission - she requests GI consult. Spoke with GI regading the patient - Dr. Guthrie is not sure this is an acute GI issue however states ERCP is available if necessary. Diagnostic Imaging: Viewed by Me: CT Scan. Discussed w/RAD: CT Scan. Radiology Impression: PATIENT: ISSAC ALATORRE PRESENT AGE: 72 PATIENT ACCOUNT NO: [id number] : 43 LOCATION: [facility] ORDERING PHYSICIAN: Kelley SIMMS SERVICE DATE: 07/08/17 EXAM TYPE: CAT - CT HEAD WO IV CONTRAST EXAMINATION: CT HEAD WITHOUT CONTRAST CLINICAL INFORMATION: Altered mental status COMPARISON: 02/18/2017 TECHNIQUE: Contiguous axial imaging was performed from the skull base to vertex without intravenous administration of contrast. DLP: 608.68 mGy-cm FINDINGS: There is trace subarachnoid hemorrhage in the high left frontal lobe (image 46/64). There is no evidence of acute territorial infarction. No abnormal mass effect or midline shift is seen. Paredes to white matter differentiation is well preserved. The ventricles are normal in size. There is moderate periventricular white matter hypoattenuation consistent with chronic small vessel ischemic disease. Mild volume loss is noted. The osseous structures and soft tissues are normal. There is partial opacification of the left sphenoid sinus. The mastoid air cells are well-aerated. IMPRESSION: Trace subarachnoid hemorrhage in the high left frontal lobe. This critical result was discussed with Kelley Camarillo on 2017 12:25 AM, and it was ascertained that the content and urgency of the report was understood at the time of direct communication. DICTATED BY: Ariel Dow MD DATE/TIME DICTATED:07/09/1718 MANAGER COMPETITIVE INTELLIGENCE:BETTY DATE/TIME TRANSCRIBED:07/09/1718 CONFIDENTIAL, DO NOT COPY WITHOUT APPROPRIATE AUTHORIZATION. <Electronically signed in Other Vendor System> SIGNED BY: Ariel Dow MD 07/09/17 0031 CXR Impression: PATIENT: ISSAC ALATORRE PRESENT AGE: 72 PATIENT ACCOUNT NO: [id number] : 43 LOCATION: [facility] ORDERING PHYSICIAN: Kelley SIMMS SERVICE DATE: 07/08/17 EXAM TYPE: RAD - XRY-CHEST XRAY, TWO VIEWS EXAMINATION: XR CHEST CLINICAL INFORMATION: Dyspnea, fever COMPARISON: 07/07/2017 TECHNIQUE: 2 views of the chest were obtained. FINDINGS: The lungs are clear with no focal consolidation. No evidence of pneumothorax, pulmonary edema, or pleural effusions. Cardiac size is within normal limits. Calcification is present at the aortic arch. Sternal wires and mediastinal clips are noted. No acute osseous findings are seen. IMPRESSION: No acute cardiopulmonary findings. DICTATED BY: Ariel Dow MD DATE/TIME DICTATED:07/08/172352 MANAGER COMPETITIVE INTELLIGENCE:BETTY DATE/TIME TRANSCRIBED:2352 CONFIDENTIAL, DO NOT COPY WITHOUT APPROPRIATE AUTHORIZATION. < Electronically signed in Other Vendor System> SIGNED BY: Ariel Dow MD 07/08/172357 Initial ED EKG: sinus tachycardia @104bpm, PVCs, nonspecific ST changes Prior EKG: changed (07/07/17, PVCs and subtle breen) (Kelley Soriano) Departure Departure Disposition: STILL A PATIENT Condition: Stable Clinical Impression Primary Impression: Altered mental status Secondary Impressions: Elevated bilirubin, Subarachnoid bleed Referrals: Garland Mo MD (PCP/Family) Departure Forms: Customer Survey General Discharge Information Admission Note Spoke With: Carmelina Lackey MD Documentation of Exam: Documentation of any treatments & extenuating circumstances including Concerns Regarding Discharge (functional status, medication knowledge or non-compliance, living conditions, etc.) that warrant an admission rather than observation: [ Altered mental status with Possible subtle subarachnoid hemorrhage requiring frequent neuro checks, neurology consult, head MRI/MRA tomorrow, abdominal pain with acute elevation in bilirubin requiring ultrasound tomorrow, possible GI consult, hypotension and tachycardia requiring IV fluids, follow up with blood cultures, possible IV antibiotics, premature discharge medically unsafe] (Kelley Soriano) PA/NERVE SPECIALIST Co-Sign Statement Statement: ED Attending supervision documentation- x I saw and evaluated the patient. I have also reviewed all the pertinent lab results and diagnostic results. I agree with the findings and the plan of care as documented in the PA's/NERVE SPECIALIST's documentation. 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 [] I have reviewed the ED Record and agree with the PA's/NERVE SPECIALIST's documentation. [] Additions or exceptions (if any) to the PAs/NERVE SPECIALIST's note and plan are summarized below: [] (Jodi SALVADOR,Julius) Critical Care Note Critical Care Note Critical Care Time: 30-74 min (Rabia SIMMS,Kelley Salazar)
[2017-07-08 22:40] LABS: ABSOLUTE BASOPHIL COUNT 0 /CUMM (0.0-0.2); ABSOLUTE EOSINOPHIL COUNT 0 /CUMM (0.0-0.7); ABSOLUTE GRANULOCYTE CT 11.1 /CUMM (1.4-6.5); ABSOLUTE LYMPH COUNT 0.6 /CUMM (1.2-3.4); ABSOLUTE MONOCYTE COUNT 0.2 /CUMM (0.10-0.60); BASOPHIL % 0 % (0.0-2.0); EOSINOPHIL % 0 % (0-5); HEMATOCRIT 48.9 % (42-52); MEAN CORPUSCULAR HGB 28.9 PG (27.0-31.0); MEAN CORPUSCULAR HGB CONC 33.6 G/DL (33.0-37.0); PLATELET COUNT 224 /CUMM (130-400); RED BLOOD CELL CT 5.69 /CUMM (4.70-6.10); WHITE BLOOD CELL COUNT 11.9 /CUMM (4.8-10.8)
[2017-07-08 22:58] LABS: GRANULOCYTE % 93.1 % (42.2-75.2)
--- NOTE | 2017-07-08 23:58 | RADIOLOGY REPORT ---
EXAMINATION: XR CHEST CLINICAL INFORMATION: Dyspnea, fever COMPARISON: 07/07/2017 TECHNIQUE: 2 views of the chest were obtained. FINDINGS: The lungs are clear with no focal consolidation. No evidence of pneumothorax, pulmonary edema, or pleural effusions. Cardiac size is within normal limits. Calcification is present at the aortic arch. Sternal wires and mediastinal clips are noted. No acute osseous findings are seen. IMPRESSION: No acute cardiopulmonary findings.
--- NOTE | 2017-07-09 00:31 | CT SCAN REPORT ---
EXAMINATION: CT HEAD WITHOUT CONTRAST CLINICAL INFORMATION: Altered mental status COMPARISON: 02/18/2017 TECHNIQUE: Contiguous axial imaging was performed from the skull base to vertex without intravenous administration of contrast. DLP: 608.68 mGy-cm FINDINGS: There is trace subarachnoid hemorrhage in the high left frontal lobe (image 46/64). There is no evidence of acute territorial infarction. No abnormal mass effect or midline shift is seen. Paredes to white matter differentiation is well preserved. The ventricles are normal in size. There is moderate periventricular white matter hypoattenuation consistent with chronic small vessel ischemic disease. Mild volume loss is noted. The osseous structures and soft tissues are normal. There is partial opacification of the left sphenoid sinus. The mastoid air cells are well-aerated. IMPRESSION: Trace subarachnoid hemorrhage in the high left frontal lobe. This critical result was discussed with Kelley Camarillo on 07/09/2017 12:25 AM, and it was ascertained that the content and urgency of the report was understood at the time of direct communication.
--- NOTE | 2017-07-09 01:40 | History & Physical ---
Juanpablo Lerma MD 07/09/17 0139: General Information and HPI MD Statement: I have seen and personally examined ISSAC ALATORRE and documented this H&P. The patient is a 72 year old M who presented with a patient stated chief complaint of [confusion and abdoinal pain]. History of Present Illness: Patient is 72-year-old male with past medical history of diabetes, hypertension, hyperlipidemia, CABG and stent, atrial fibrillation status post ablation, pancreatitis, recent hospitalization on 07/01 for chest pain and a flutter started on Xarelto presenting this admission with confusion and abdominal pain. Patient was brought in by his due to confusion. Patient's was not present at time of interview. Patient was alert and oriented during interview. Patient reports that he had told his that his son had come over and was working on his car. After which patient's had called and his son denied this. Patient states that he remembers his dreams and what he had conveyed to his was from his dreams. Patient reports that has been having abdominal pain for the last 2 days accompanied by nausea and vomiting. Abdominal pain is located in the epigastric region and travels down to the umbilicus described as a sore pain. Patient reports that he was initially having 10 out of 10 pain however reports that the pain has now lessened and at time of interview stated he was not in any pain. Patient states that he came to [facility] ED on 07/07 for this reason and had an abdominal CT showing mild acute on chronic pancreatitis. At that time patient was given GI cocktail and was sent home. Patient reports that he continued to have abdominal pain and went to [facility] in the afternoon the same day and was also given GI cocktail at that point with no further imaging. Associated symptoms include nausea and nonbloody vomiting. Patient reports self inducing vomiting 3. Patient reports that he has not been able to keep food down except for half a cup of applesauce for the past 2 days. Patient also reports constipation for the past 4 days. And reports increased weight gainapproximately 10 pounds over the past 2 months. Patient states that he is feeling weaker today. Patient denies any chest pain, palpitations, lightheadedness, dizziness, hematuria/ dysuria, diarrhea. Patient denies shortness of breath, lower extremity edema. Denies blurry vision, double vision, numbness/tingling in extremities, facial droop, dysphasia, dysarthria, favoring one side, seizure-like activity. Denies any recent fall over the past year. Patient was recently hospitalized at [facility] on 07/01 due to chest pain and a flutter. Patient was put on Xarelto and was told to follow-up with his highway inspector for outpatient cardioversion and stress test. Patient reports that he has not had cardioversion however is scheduled for a nuclear stress test with Dr. Centeno. Patient also reports that he has not had his Xarelto since 07/06 due to abdominal pain and nausea/vomiting. Patient reports that he has not had his other medications as well. Past medical history: As above, mass on kidney Past surgical history: CABG, stent Social history: Patient quit smoking 20 years ago, previously smoking 1 pack per day for 20-30 years, drinks alcohol 1-2 drinks per week,Patient reports that he lives with his who had a cold one week prior, reports eating fried food over the past week. Patient's PCP is Dr. Mo Gut Dropper is Dr. Centeno Allergies/Medications Allergies: Coded Allergies: Penicillins (Intermediate, SWELLING 05/16/15) Home Med list Amlodipine Besylate (Norvasc) 5 MG TABLET 1 TAB PO DAILY HEART (Reported) Aspirin (Children's Aspirin) 81 MG TAB.CHEW 1 TAB PO Q48 HEART HEALTH ( Reported) Atorvastatin Calcium (Lipitor) 20 MG TABLET 1 TAB PO DAILY HLD (Reported) Azilsartan Medoxomil (Edarbi) 40 MG TABLET 1 TAB PO DAILY Blood Pressure ( Reported) Cholecalciferol (Vitamin D3) 1,000 UNIT TABLET 1 TAB PO DAILY VITAMIN SUPPORT (Reported) Cyanocobalamin (Vitamin B-12) 1,000 MCG TABLET 1 TAB PO DAILY Supplement ( Reported) Cyclosporine (Restasis) 1 EACH DROPERETTE 1 GTT OPH BID Eye drops (Reported) Isosorbide Mononitrate (Isosorbide Mononitrate ER) 30 MG TAB.ER.24H 1 TAB PO DAILY CHEST PAIN Magnesium Oxide 400 MG TABLET 1 TAB PO DAILY SUPPLEMENT (Reported) Methylcellulose (Fiber Therapy) 500 MG TABLET 1 TAB PO DAILY SUPPLEMENT ( Reported) Metoprolol Tartrate (Lopressor) 100 MG TABLET 1 TAB PO BID Heart rate [place]-3 Fatty Acids (Fish Oil Concentrate) 1,000 MG CAPSULE 1 CAP PO DAILY SUPPLEMENT (Reported) Omeprazole 40 MG CAPSULE. 1 CAP PO DAILY GI (Reported) Rivaroxaban (Xarelto) 20 MG TABLET 1 TAB PO QPM Blood thinner with food Past History Travel History Traveled to [place] past 21 day No Medical History Neurological: NONE EENT: epistaxis Cardiovascular: AFIB (PAROXYSMAL- POST ABLATION), CAD, hypertension, hyperlipidemia, myocardial infarction, 03/04/1999- CABG X3 02/18/2001- CORDIS STENT PLACEMENT- CX ARTERY Respiratory: NONE Gastrointestinal: GERD, DIVERTICULOSIS COLI HX COLON TA/TVA Hepatic: NONE Renal: NONE Musculoskeletal: degen joint disease Psychiatric: NONE Endocrine: HYPERCALCEMIA (BORDERLINE) Blood Disorders: NONE Cancer(s): NONE 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 , Age 78; Cause: Throat cancer. FATHER, , Age 82; Cause: S/P mitral valve repair. Psychosocial History Who Do You Live With? spouse Services at Home: None Primary Language: St Helen[place] Living Will? no Power of It Security Analyst/HCP? no Functional Ability ADLs Independent: dressing, eating, toileting, bathing. Ambulation: independent IADLs Independent: shopping, housework, finances, food prep, telephone, transportation , medication admin. Review of Systems Review of Systems Constitutional: Reports: see HPI. Exam & Diagnostic Data Last 24 Hrs of Vital Signs/I&O Vital Signs Date Time Temp Pulse Resp B/P B/P Pulse O2 O2 Flow FiO2 Mean Ox Delivery Rate 07/09 0404 98 Room Air 07/09 0355 98.0 86 18 110/70 98 Room Air 07/09 0248 99.0 98 18 101/55 98 07/09 0039 100.5 62 20 108/55 95 Room Air Room Air 07/08 2335 100.4 07/08 2311 97 Room Air 07/08 2203 100.4 113 14 95/58 94 Room Air Intake & Output 07/09 0800 07/09 0000 07/08 1600 Intake Total Output Total Balance Patient 197 lb 200 lb Weight Weight Bed scale Reported by Patient Measurement Method Physical Exam General Appearance Alert, Oriented X3, Cooperative, No Acute Distress Skin No Rashes, No Breakdown, No Significant Lesion Skin Temp/Moisture Exam: Warm/Dry Sepsis Skin Exam (color): Normal for Ethnicity HEENT Atraumatic, PERRLA, EOMI, Mucous Membr. moist/pink Neck Supple, No JVD, No thryomegaly, +2 Carotid Pulse wo Bruit, No LAD Lymphatic Cervical nl Cardiovascular Normal S1, Normal S2, No Murmurs, irregular rate Lungs Clear to Auscultation, Normal Air Movement Abdomen Normal Bowel Sounds, Soft, No Tenderness, No Hepatospenomegaly, No Masses, distended Neurological Normal Speech, Strength at 5/5 X4 Ext, Normal Tone, Sensation Intact, Cranial Nerves 3-12 NL, Reflexes 2+ Extremities No Clubbing, No Cyanosis, No Edema, Normal Pulses, No Tenderness/ Swelling Vascular Normal Pulses, Pulses Symmetrical Last 24 Hrs of Labs/Markel: Laboratory Tests 07/09/17 0500: Ammonia < 9 L 07/09/17 0500: Anion Gap 14, Estimated GFR 54 L, Glucose 86, Lactic Acid 2.2 H, Calcium 9.3, Phosphorus 3.0, Magnesium 1.8, Total Bilirubin 1.9 H, AST 54, ALT 56, Albumin 3.3 L, Triglycerides 84, Cholesterol 81, LDL Cholesterol, Calc 24 L, HDL Cholesterol 41, Cholesterol/HDL Ratio 2, TSH 0.716, Free T4 1.24, PT 16.3 H, INR 1.49 H, APTT 32, CBC w Diff MAN DIFF ORDERED, RBC 4.99, MCV 86.2, MCH 28.5, MCHC 33.1, RDW 14.2, MPV 9.0, Gran % 88.4 H, Lymphocytes % 5.7 L, Monocytes % 5.9, Eosinophils % 0, Basophils % 0, Absolute Granulocytes 12.2 H, Segmented Neutrophils 77 H, Band Neutrophils 12 H, Absolute Lymphocytes 0.8 L, Lymphocytes 5 L, Monocytes 5, Absolute Monocytes 0.8 H, Absolute Eosinophils 0 , Basophils 1, Absolute Basophils 0, Platelet Estimate ADEQUATE, Normochromic RBCs VERIFIED, Poikilocytosis 1+, Ovalocytes 1+, Fld Total RBCs Counted 100 07/09/17 0145: Lactic Acid 2.1 07/08/17 2220: Anion Gap 17 H, Estimated GFR 54 L, BUN/Creatinine Ratio 13.1, Glucose 116 H, Lactic Acid 3.0 H, Calcium 10.0, Total Bilirubin 2.3 H, Direct Bilirubin 1.1 H, AST 38, ALT 36, Alkaline Phosphatase 89, Troponin I 0.04, Total Protein 7.5, Albumin 4.3, Globulin 3.2, Albumin/Globulin Ratio 1.3, Triglycerides 83, Amylase 33, Lipase 143, CBC w Diff NO MAN DIFF REQ, RBC 5.69, MCV 86.0, MCH 28.9, MCHC 33.6, RDW 14.0, MPV 9.0, Gran % 93.1 H, Lymphocytes % 5.4 L, Monocytes % 1.5 L, Eosinophils % 0, Basophils % 0, Absolute Granulocytes 11.1 H, Absolute Lymphocytes 0.6 L, Absolute Monocytes 0.2, Absolute Eosinophils 0, Absolute Basophils 0, Serum Alcohol < 10.0 Microbiology 07/09 0500 NASOPHARYN: Influenza Virus A & B Rapid Smear - COMP 07/09 0345 UPPER RESP: Surveillance Culture - RECD 07/09 0325 GI: Surveillance Culture - CAN Cancelled: Cancelled via OE: PT REFUSED 07/09 0303 URINE ROUT: Urine Culture - COLB 07/08 2230 BLOOD: Blood Culture - RECD 07/09 2219 BLOOD: Blood Culture - RECD Assessment/Plan Assessment: Patient is 72-year-old male with past medical history of diabetes, hypertension, hyperlipidemia, CABG and stent, atrial fibrillation status post ablation, pancreatitis, recent hospitalization on 07/01 for chest pain and a flutter started on Xarelto presenting this admission with confusion and abdominal pain. Patient will be admitted to the ICU due to subarachnoid hemorrhage requiring close monitorin. Mild pancreatitis, cholestasis with concern for ascending cholangiits 2. Subarachnoid hemorrhage 3. Chronic conditions: DM, HTN, HLD, A.fib Plan: Admit to ICU Neurochecks every one to 2 hours Vitals Repeat CBC and CMP Neurosurgery consult- Dr. Cochran was notified by the ED Neurology consult GI consult Right upper quadrant ultrasound IV ceftriaxone and Flagyl Follow-up blood cultures IV normal saline at 100 mL per hour Nothing by mouth DVT prophylaxis: Alps only due to subarachnoid hemorrhage Diet: Nothing by mouth. Code: Full code As Ranked By This Provider Problem List: 1. Subarachnoid bleed 2. Acute on chronic pancreatitis 3. Cholestasis Core Measures/Misc (11/30) Acute Coronary Syndrome ACS Diagnosis: No Congestive Heart Failure Congestive Heart Failure Diagnosis No Cerebrovascular Accident CVA/TIA Diagnosis: No VTE (View Protocol) VTE Risk Factors Age>40 No Mechanical VTE Prophylaxis d/t N/A MechProphylax Ordered No VTE Pharm Prophylaxis d/t Other (subarachnoid henmorrhage on CT) Sepsis (View protocol) Sepsis Present: No Jaison Baig 07/09/17 0350: Resident Review Statement Resident Statement: examined this patient, discussed with internal affairs investigator, agreed with internal affairs investigator, reviewed EMR data (avail), discussed with nursing, discussed with case mgmt, reviewed images, amended to note Other Findings: This is 72-year-old with a medical history of hypertension, hyperlipidemia, atrial fibrillation status post ablation REstarted on Xarelto due to recent diagnosis of atrial flutter, GERD, CAD status post CABG, history of pancreatitis. Patient presented to the emergency department due to altered mental status is confusion according to his . His informed the ED staff that "she came home tonight and the patient was hallucinating and seemed very confused' the p.t him self stated stated that he usually has some dreams that sometimes and he deny any confusion or hallucination. The patient states that the he REstarted to notice the abdominal pain again yesterday, periumbilical region radiating upwards, constant, no relieving factors, associated with nausea and decreased oral intake and low appetite so he went to [facility], he was evaluated by CAT scan and he was given GI cocktail and patient was discharged home. Both he states that the pain was persistent so patient's took him to [facility] where again patient received GI cocktail for pain and was discharged home. Patient stated that he has this pain on and off for the past weeks. Patient had similar symptoms in 2016 at that time he was evaluated with what appears to be endoscopic ultrasound, "stent" was placed at that time. According to patient the specialist informed him that there was no concern of any stones and he was discharged there after. At the emergency department with trace showed a trace of all possible subarachnoid hemorrhage in the left FRONTAL LOBE, patient stated that yesterday and today he did not talk his Xarelto. Patient was recently admitted to [facility] due to chest pain and he was R /O for ACS and he stated that he follow-up with his highway inspector to do the stress test on the echo. Physical examination , lab and imaging as above. Problem list: -Mild chronic pancreatitis, with cholestasis Suspicion of CBD stone, possibility of ascending cholangitis given mild temp, pain and the leukocytosis. -Subarachnoid hemorrhage. -Lactic acidosis. -Volume depletion with elevated creatinine. Plan: -Admit the patient to critical care unit -Vitals every shift, NIH check Q 1 -Keep the patient nothing by mouth -IV fluid hydration of normal saline -Start patient on IV ceftriaxone and FLAGYL -Obtained abdominal ultrasound -Panculture including blood, urine, obtain rapid flu -Trend lactic acid -Obtain magnesium, phosphorus, free T4, TSH -Gastroenterology consultation -Keep systolic blood pressure below 140 -Neurology consultation, neurosurgical consultation -Hold the patient is also on aspirin -Pain pathway -DVT prophylaxis:Alps -Full code Carmelina Lackey 07/09/17 0506: Attending MD Review Statement Attending Statement Attending MD Statement: examined this patient, discuss w/resident/PA/ELECTRIC NEEDLE SPECIALIST, agreed w/resident/PA/ELECTRIC NEEDLE SPECIALIST, reviewed EMR data (avail), reviewed images, amended to note Attending Assessment/Plan: CC: Confusion PMH: CAD S/P CABG, HTN, HLD, history of A. fib S/P ablation, recently diagnosed A flutter, previous history of pancreatitis Patient started to notice abdominal pain yesterday, periumbilical region radiating upwards, constant, no relieving factors so he went to ER, he was evaluated by CAT scan and he was given GI cocktail and patient was discharged home. His pain was persistent so patient's took him to [facility] where again patient received GI cocktail for pain and was discharged home. After coming home his abdominal pain was persistent and he appeared confused to his so she insisted coming back to ER. also endorses nausea and 3 times of vomiting during this time, remarkable for decreased by mouth intake since last 2 days and has not been taking his medications. He had an episode of chills but denies any fever at home. He also endorses mild constipation and he states that he was dreaming and he told his treatment to when she thought he was confused. After his previous hospitalization of pancreatitis he was evaluated at [facility] with various tests according to him, including endoscopic ultrasound and "stents" were placed. According to him eventually did not find any particular cause for pancreatitis. He was informed that he may not have stones, he was offered gallbladder surgery but patient refused it. Patient gets similar pains at least 3 times in the ER, he drinks alcohol very rarely no recent trauma or falls, no loss of consciousness, no neurological weakness. Vitals: T max 100.5, pulse 113, RR 14, blood pressure 95/58 on arrival improved to 108/55, saturating well on room air. On exam: A O 3, cooperative, no acute distress, neck supple, JVD normal, no lymphadenopathy, mucosa moist, complete neurological examination unremarkable, no dependent edema, no obvious skin rashes or inflammation CVS: S1-S2, RRR. RS: Clear to auscultate bilaterally. Abdomen: Soft, ND, bowel sounds present, very mild right upper quadrant tenderness, no Sierra's sign, no guarding or rigidity. CXR: No acute cardiopulmonary findings. CT head without contrast: Trace subarachnoid hemorrhage in the high left frontal lobe. CT abdomen and pelvis without IV contrast done on July 07: 1. Mild peripancreatic stranding, concerning for mild pancreatitis in the proper clinical setting. Additional findings suggestive of underlying chronic pancreatitis. The pancreatic duct appears dilated to approximately 7 mm 2. Colonic diverticulosis. Assessment and plan 72 year old female with past medical history of pancreatitis, of unclear etiology presented in ER for vague abdominal pain since last 2 days, he visited ER twice so far for that pain. It was evaluated with CT scan on July 07 and he was found to have mild peripancreatic stranding suggestive of mild pancreatitis. At that time his lipase was normal and he was discharged home. His pain persisted and then he followed up at [facility], he was provided symptomatic treatment there as well. His pain persisted and he appeared little confused to his so she insisted to come to hospital. According to patient he was dreaming and he was explaining the dream to his and she thought he was confused. Currently patient is alert oriented 3, no focal neurological deficits, there is mild tenderness on right upper quadrant but no guarding or rigidity or Sierra's sign. He was found to have temperature of 100.5 , mild tachycardia and blood pressure was 95/58 on arrival but improved 108/55 with hydration. He has mild increase in his bilirubin as compared to 2 days back and mild anion gap acidosis along with leukocytosis and left shift. There is a suspicion that patient may have a CBD stone which may be causing cholestasis as well as pancreatitis. Patient had similar symptoms in 2016 at that time he was evaluated with what appears to be endoscopic ultrasound, "stent" was placed at that time. According to patient the specialist informed him that there was no concern of any stones and he was discharged thereafter. Since then he has at least 3 episodes of abdominal pain for years. He never underwent gallbladder removal. During current ER visit He is incidentally also found to have subarachnoid hemorrhage which is very small, neurosurgery was called who suggested closer monitoring for neurological symptoms, no surgical intervention. Patient was recently started on Xealto for recurrent A. fib flutter. No recent trauma. Patient was recently admitted for chest pain and was found to have a flutter, he was started on 02 at that time. During that hospitalization patient had CT abdomen which did not show any pancreatic duct dilated patient and it was new finding on July 07 CT scan. + Mild pancreatitis, with cholestasis : Suspicion of CBD stone, questionable ascending cholangitis given mild temperature, pain, leukocytosis and cholestasis + Subarachnoid hemorrhage + History of CAD S/P CABG, HTN, HLD, history of A. fib S/P ablation, recently diagnosed A flutter, previous history of pancreatitis - Admit to ICU - Every 2 hours neuro checks - Neurology consult - Neurosurgery consult - Holds Xeralto and aspirin - Informed highway inspector about patient being in hospital - Right upper quadrant ultrasound - Continue IV ceftriaxone and Flagyl for now - GI consult in a.m. - Blood cultures - Gentle hydration - Nothing by mouth - Pain control
[2017-07-09 03:55] VITALS: BP 110/70
--- NOTE | 2017-07-09 05:08 | Admission Certification ---
Admission Certification Certification Statement - As attending physician, I certify that at the time of - admission, based on clinical presentation, severity of - symptoms, need for further diagnostic testing and - therapeutic interventions, and risk of adverse outcomes - without in-hospital treatment, in my clinical assessment, - this patient requires an acute hospital stay for a minimum - of two nights or longer. I have also considered psychsocial - factors such as support system, advanced age, financial - issues, cognitive issues, and failed out-patient treatments, - past re-admission history, safety of patient, and lack of - compliance as applicable. Specific rationale supporting this admission is: Subarachnoid hemorrhage, mild pancreatitis with suspected CBD stone.
[2017-07-09 05:43] LABS: ABSOLUTE BASOPHIL COUNT 0 /CUMM (0.0-0.2); ABSOLUTE EOSINOPHIL COUNT 0 /CUMM (0.0-0.7); ABSOLUTE GRANULOCYTE CT 12.2 /CUMM (1.4-6.5); ABSOLUTE LYMPH COUNT 0.8 /CUMM (1.2-3.4); ABSOLUTE MONOCYTE COUNT 0.8 /CUMM (0.10-0.60); BASOPHIL % 0 % (0.0-2.0); EOSINOPHIL % 0 % (0-5); GRANULOCYTE % 88.4 % (42.2-75.2); MEAN CORPUSCULAR HGB 28.5 PG (27.0-31.0); MEAN CORPUSCULAR HGB CONC 33.1 G/DL (33.0-37.0); MEAN CORPUSCULAR VOLUME 86.2 FL (80.0-94.0); PLATELET COUNT 170 /CUMM (130-400); RBC DISTRIBUTION WIDTH 14.2 % (11.5-14.5); RED BLOOD CELL CT 4.99 /CUMM (4.70-6.10); WHITE BLOOD CELL COUNT 13.8 /CUMM (4.8-10.8)
[2017-07-09 05:51] LABS: PT 16.3 SEC (9.4-12.5); PTT 32 SEC (25-37)
--- NOTE | 2017-07-09 07:36 | Cons- CRCU ---
Kelsey Craft MD 07/09/17 0736: General Information and HPI Consulting Request Date of Consult: 07/09/17 Requested By: Primary team Reason for Consult: Mild chronic pancreatitis, with cholestasis Suspicion of CBD stone, possibility of ascending cholangitis Source of Information: patient, family Exam Limitations: no limitations History of Present Illness: Mr. gutierres is 72-year-old male with past medical history of diabetes, hypertension, hyperlipidemia, CABG s/p stent placement, atrial fibrillation status post ablation, pancreatitis, recent hospitalization on 07/01 for chest pain and a flutter started on Xarelto presenting this admission with confusion and abdominal pain. Patient was seen in the ER on 07/07 for abdominal pain, CT scan abdomen and pelvis was done at that time which showed mild acute on chronic pancreatitis, patient was given a GI cocktail at that time and discharged home. The pain persisted later during the day and went to [facility] but no further imaging or lab work was done there and again patient was given a GI cocktail and sent home. Also complains of associated nausea and nonbloody vomiting 3. He has also not been eating well for the past 3 days. Patient was brought in by his yesterday because the patient seemed confused, per the he found him taking off his close eye Danita drenched in sweats, also his pants seemed damped and looks like he had some urinary incontinence. Patient also said he was with his son all day but when his called the son, he denied seeing him that day which got her concerned and brought into the ER. At the emergency department a head CT was done showing possible subarachnoid hemorrhage in the left FRONTAL LOBE. Ino any trauma or headaches. Patient has a Hx of chronic pancreatitis, he also had an endoscopic ultrasound done at [facility] in 2016 with a stent placed at that time. Patient was also recently admitted to [facility] on 07/01 and was found to be in atrial flutter at which time he was started on Xarelto. Patient was discharged home with outpatient Follow-up with his ticket chopper assembler for cardioversion but instead is scheduled for an echocardiogram and stress test sometimes next week. Patient has not been taking as her also and other home medications for the past 2-3 days because of nausea and vomiting. Patient this morning reports resolution of his symptoms including abdominal pain , nausea and vomiting. Allergies/Medications Allergies: Coded Allergies: Penicillins (Intermediate, SWELLING 05/16/15) Home Med List: Amlodipine Besylate (Norvasc) 5 MG TABLET 1 TAB PO DAILY HEART (Reported) Aspirin (Children's Aspirin) 81 MG TAB.CHEW 1 TAB PO Q48 HEART HEALTH ( Reported) Atorvastatin Calcium (Lipitor) 20 MG TABLET 1 TAB PO DAILY HLD (Reported) Azilsartan Medoxomil (Edarbi) 40 MG TABLET 1 TAB PO DAILY Blood Pressure ( Reported) Cholecalciferol (Vitamin D3) 1,000 UNIT TABLET 1 TAB PO DAILY VITAMIN SUPPORT (Reported) Cyanocobalamin (Vitamin B-12) 1,000 MCG TABLET 1 TAB PO DAILY Supplement ( Reported) Cyclosporine (Restasis) 1 EACH DROPERETTE 1 GTT OPH BID Eye drops (Reported) Isosorbide Mononitrate (Isosorbide Mononitrate ER) 30 MG TAB.ER.24H 1 TAB PO DAILY CHEST PAIN Magnesium Oxide 400 MG TABLET 1 TAB PO DAILY SUPPLEMENT (Reported) Methylcellulose (Fiber Therapy) 500 MG TABLET 1 TAB PO DAILY SUPPLEMENT ( Reported) Metoprolol Tartrate (Lopressor) 100 MG TABLET 1 TAB PO BID Heart rate [place]-3 Fatty Acids (Fish Oil Concentrate) 1,000 MG CAPSULE 1 CAP PO DAILY SUPPLEMENT (Reported) Omeprazole 40 MG CAPSULE.DR 1 CAP PO DAILY GI (Reported) Rivaroxaban (Xarelto) 20 MG TABLET 1 TAB PO QPM Blood thinner with food Review of Systems Review of Systems Constitutional: Reports: no symptoms. EENTM: Reports: no symptoms. Cardiovascular: Reports: no symptoms. Respiratory: Reports: no symptoms. GI: Reports: no symptoms. Genitourinary: Reports: no symptoms. Musculoskeletal: Reports: no symptoms. Skin: Reports: no symptoms. Neurological/Psychological: Reports: no symptoms. Hematologic/Endocrine: Reports: no symptoms. Immunologic/Allergic: Reports: no symptoms. 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 , Age 78; Cause: Throat cancer. FATHER, , Age 82; Cause: S/P mitral valve repair. Psychosocial History Where Do You Live? Home Who Do You Live With? spouse Services at Home: None Primary Language: Georgian Smoking Status: Never Smoked Living Will? no Power of Hand Rounder/HCP? no Functional Ability ADLs Independent: dressing, eating, toileting, bathing. Ambulation: independent IADLs Independent: shopping, housework, finances, food prep, telephone, transportation , medication admin. Exam & Diagnostic Data Last 24 Hrs of Vital Signs/I&O Vital Signs Date Time Temp Pulse Resp B/P B/P Pulse O2 O2 Flow FiO2 Mean Ox Delivery Rate 07/09 0800 99.0 88 20 110/68 96 Room Air 07/09 0404 98 Room Air 07/09 0355 98.0 86 18 110/70 98 Room Air 07/09 0248 99.0 98 18 101/55 98 07/09 0039 100.5 62 20 108/55 95 Room Air Room Air 07/08 2335 100.4 07/08 2311 97 Room Air 07/08 2203 100.4 113 14 95/58 94 Room Air Intake & Output 07/09 1600 07/09 0800 07/09 0000 Intake Total 600 Output Total Balance 600 Intake, IV 600 Patient 197 lb 200 lb Weight Weight Bed scale Reported by Patient Measurement Method Physical Exam General Appearance: well developed/nourished, no apparent distress, alert, awake , anxious, comfortable Head: atraumatic, normal appearance Respiratory: normal breath sounds, chest non-tender, lungs clear Cardiovascular: regular rate/rhythm Gastrointestinal: normal bowel sounds, soft, distention, mild generalized tenderness to palpation Extremities: normal inspection, no edema Neurologic/Psych: no motor/sensory deficits, awake, alert, oriented x 3, normal mood/affect Cranial Nerves: normal hearing, normal speech, PERRL Last 48 Hrs of Labs/Markel: Laboratory Tests 07/09/17 1015: Urine Color Pending, Urine Clarity Pending, Urine pH Pending, Ur Specific [place] Pending, Urine Protein Pending, Urine Ketones Pending, Urine Nitrite Pending, Urine Bilirubin Pending, Urine Urobilinogen Pending, Ur Leukocyte Esterase Pending, Ur Microscopic Pending, Urine Hemoglobin Pending, Urine Glucose Pending 07/09/17 0802: Lactic Acid 1.8 07/09/17 0500: Ammonia < 9 L 07/09/17 0500: Anion Gap 14, Estimated GFR 54 L, Glucose 86, Lactic Acid 2.2 H, Calcium 9.3, Phosphorus 3.0, Magnesium 1.8, Total Bilirubin 1.9 H, Direct Bilirubin 0.8 H, AST 54, ALT 56, Alkaline Phosphatase 69, Albumin 3.3 L, Triglycerides 84, Cholesterol 81, LDL Cholesterol, Calc 24 L, HDL Cholesterol 41, Cholesterol/HDL Ratio 2, TSH 0.716, Free T4 1.24, PT 16.3 H, INR 1.49 H, APTT 32, CBC w Diff MAN DIFF ORDERED, RBC 4.99, MCV 86.2, MCH 28.5, MCHC 33.1, RDW 14.2, MPV 9.0, Gran % 88.4 H, Lymphocytes % 5.7 L, Monocytes % 5.9, Eosinophils % 0, Basophils % 0, Absolute Granulocytes 12.2 H, Segmented Neutrophils 77 H, Band Neutrophils 12 H, Absolute Lymphocytes 0.8 L, Lymphocytes 5 L, Monocytes 5, Absolute Monocytes 0.8 H, Absolute Eosinophils 0, Basophils 1, Absolute Basophils 0, Platelet Estimate ADEQUATE, Normochromic RBCs VERIFIED, Poikilocytosis 1+, Ovalocytes 1+, Fld Total RBCs Counted 100 07/09/17 0145: Lactic Acid 2.1 07/08/172226: Methadone Screen Cancelled, Barbiturate Screen Cancelled, Ur Phencyclidine Scrn Cancelled, Amphetamines Screen Cancelled, U Benzodiazepines Scrn Cancelled, Urine Cocaine Screen Cancelled, Urine Cannabis Screen Cancelled 07/08/172219: Anion Gap 17 H, Estimated GFR 54 L, BUN/Creatinine Ratio 13.1, Glucose 116 H, Lactic Acid 3.0 H, Calcium 10.0, Total Bilirubin 2.3 H, Direct Bilirubin 1.1 H, AST 38, ALT 36, Alkaline Phosphatase 89, Troponin I 0.04, Total Protein 7.5, Albumin 4.3, Globulin 3.2, Albumin/Globulin Ratio 1.3, Triglycerides 83, Amylase 33, Lipase 143, CBC w Diff NO MAN DIFF REQ, RBC 5.69, MCV 86.0, MCH 28.9, MCHC 33.6, RDW 14.0, MPV 9.0, Gran % 93.1 H, Lymphocytes % 5.4 L, Monocytes % 1.5 L, Eosinophils % 0, Basophils % 0, Absolute Granulocytes 11.1 H, Absolute Lymphocytes 0.6 L, Absolute Monocytes 0.2, Absolute Eosinophils 0, Absolute Basophils 0, Serum Alcohol < 10.0 Microbiology 07/09 0500 NASOPHARYN: Influenza Virus A & B Rapid Smear - COMP Assessment/Plan CRCU Impression/Plan: Patient is 72-year-old male with past medical history of diabetes, hypertension, hyperlipidemia, CABG and stent, atrial fibrillation status post ablation, pancreatitis, recent hospitalization on 07/01 for chest pain and a flutter started on Xarelto presenting this admission with confusion and abdominal pain. Vitals at the time of admission were : T max 100.5, pulse 113, RR 14, blood pressure 95/58 on arrival improved to 108/55, saturating well on room air. On exam: A O 3, cooperative, no acute distress, neck supple, JVD normal, no lymphadenopathy, mucosa moist, complete neurological examination unremarkable, no dependent edema, no obvious skin rashes or inflammation CVS: S1-S2, RRR. RS: Clear to auscultate bilaterally. Abdomen: Soft, ND, bowel sounds present, very mild right upper quadrant tenderness, no Sierra's sign, no guarding or rigidity. CXR: No acute cardiopulmonary findings. CT head without contrast: Trace subarachnoid hemorrhage in the high left frontal lobe. CT abdomen and pelvis without IV contrast done on July 07: 1. Mild peripancreatic stranding, concerning for mild pancreatitis in the proper clinical setting. Additional findings suggestive of underlying chronic pancreatitis. The pancreatic duct appears dilated to approximately 7 mm 2. Colonic diverticulosis. Patient will be admitted to the ICU due to subarachnoid hemorrhage requiring close monitorin. Mild pancreatitis, cholestasis Suspicion of CBD stone, questionable ascending cholangitis given mild temperature, pain, leukocytosis and cholestasis 2. Subarachnoid hemorrhage 3. Hx of HTN and HLD 4. Hx of CAD s/p CABG 5. A. fib S/P ablation, recently diagnosed A flutter on Xarelto Respiratory; no, stable still at this point Infectious; 1. Mild pancreatitis, cholestasis Suspicion of CBD stone, questionable ascending cholangitis(given mild temperature, pain, leukocytosis and cholestasis) . Patient presented with abdominal pain, nausea and vomiting. Also had an elevated lactic acid. Amylase and Lipase normal. Total bilirubin at the time of admission was 2.3 trended down to 1.9 with direct bilirubin of 0.8. Right upper quadrant ultrasound showed Borderline thickening of the gallbladder wall and dilatation of the common bile duct up to approximately 1 cm, unchanged when compared to 11/10/2015 without any definite choledocholithiasis. Patient made NPO, started on IV antibiotics and given aggresive IV fluids. Lactic acid trended down. Blood Cx now growing GNR, ?? GI source. Urine cx pending. - NPO - gentle IV fluid hydration - Continue Ceftazidime and D/C flagyl - Zofran as needed for nausea and vomiting - f/u final blood culture and sensitivities. - Awaiting GI recommendations; patient may need an ERCP. - Repeat CBC and CMP in am Cardiology; 1. Recently diagnosed A.Flutter on Xrelto; Patient is scheduled for an echocardiogram and a stress test as an outpatient with Dr. Dowling next week, 1 ticket chopper assembler notified of the patient's hospitalization. - Xarelto currently on hold because of the subarachnoid hemorrhage. 2. Hx of Hypertention; - Continue home medications 3. History of hyperlipidemia - Continue atorvastatin 20 mg daily 4. History of CAD status post CABG - Continue home medications except aspirin. Heme; 1. Leukocytosis; at least in due to mild pancreatitis,?? cholangitis Metabolic 1. ELectrolyte abnormalities; - Continue to monitor and replete accordingly. Alimentary; As above Neuro; 1. SAH; Patient was brought in because of new onset confusion per the . Head CT was done showing small left frontal SAH. Patient denies any trauma or fall. Also has not been taking his Xarelto for the past 2 days because of nausea and vomiting. - Neurochecks every one to 2 hours - Monitor vitals closely. - Neurosurgery consult - await recommendations - Neurology consult - await recommendations - Repeat head CT. DVT prophylaxis: Alps only due to subarachnoid hemorrhage Diet: Nothing by mouth. Code: Full code Problem List: 1. Subarachnoid bleed 2. Acute on chronic pancreatitis 3. Cholestasis Consult Acknowledgment - Thank you for your consult request. Marcie SALAVDOR,[facility] 07/09/17 1313: Assessment/Plan CRCU Other Findings/Comments: Seen and examined independently Pt with previous recurrent pancreatitis with previous ercp etc, with multiple ER visits with abd pain ([facility]x [place] [facility] and [facility]), now with Gram neg sepsis - due to pancreaticobiliary etiology with abd pain, elevated bili and prior history of ercp etc Recent flutter in sinus - was on xeralto, has not taken xarelto since thursday morning per pt Head CT suspicious for SAH - very mild by ct and no headache or trauma etc CAD, CABG, pafib, HTN, HLD, Previous abalation for afib Elevated pancreas enzyme REC ICU FLuid resusitation IV ceftaz GI eval Rpt HEad CT to eval for evolution of SAH - confirm with radiiology DC all anticoag Venodyne boots Can Dc flagyl Pt is critically ill with sepsis tts 38 mins Discussed with Consult Acknowledgment - Thank you for your consult request.
[2017-07-09 08:00] VITALS: BP 110/68
--- NOTE | 2017-07-09 10:37 | ULTRASOUND REPORT ---
EXAMINATION: US ABDOMEN LIMITED CLINICAL INFORMATION: Confusion, abdominal pain, elevated bilirubin. Presumptive diagnosis of cholangitis. COMPARISON: CT scan of the abdomen and pelvis dated 07/07/2017 ultrasound of the abdomen dated 11/10/2015. TECHNIQUE: Real-time imaging of the right upper quadrant abdominal viscera. FINDINGS: PANCREAS: The pancreatic body is visualized and appears unremarkable. Remainder of the pancreas is largely obscured by overlying bowel gas. LIVER: Normal. The liver demonstrates normal size, contour and echogenicity. No focal lesion or intrahepatic biliary duct dilatation. GALLBLADDER: The gallbladder wall is borderline thickened, measuring up to 0.3 cm diameter. The gallbladder is otherwise unremarkable and physiologically distended without evidence of stones, sludge, polyps, or pericholecystic fluid. No sonographic Sierra's sign is elicited while scanning over the gallbladder. COMMON BILE DUCT: Dilated, measuring up to 1.0 cm in diameter. RIGHT KIDNEY: Normal. No hydronephrosis. No renal calculi or focal parenchymal lesions. The kidney measures 10.7 cm in maximum dimension. FREE FLUID: None. IMPRESSION: 1. Borderline thickening of the gallbladder wall. This is a nonspecific finding. The gallbladder is otherwise unremarkable. 2. Dilatation of the common bile duct up to approximately 1 cm, unchanged when compared to 11/10/2015. No definite choledocholithiasis is appreciated though the entirety of the common bile duct is not visualized. The head of the pancreas is also not visualized. 3. Otherwise unremarkable right upper quadrant ultrasound.
--- NOTE | 2017-07-09 13:50 | Discharge Summary ---
Visit Information Visit Dates Admission Date: 07/09/17 Hospital Course Course Attending Physician: Carmelina Lackey MD Primary Care Physician: Chely SALVADOR,Garland Lopez Allergies: Coded Allergies: Penicillins (Intermediate, SWELLING 05/16/15)
--- NOTE | 2017-07-09 15:14 | Cons- Gastroenterology ---
General Information and HPI Consulting Request Date of Consult: 07/09/17 Requested By: Carmelina Lackey MD Reason for Consult: Increased bilirubin.? cholangitis. Abdominal pain. Abrnomal ct scan of biliary tree. Source of Information: patient, old records Exam Limitations: confusion History of Present Illness: Mr. Dawson is a 72 year old male with a history of CAD s/p CABG, afib on Xarelto who was brought into yesterday for reports of altered mental status and abdominal pain. He notes that for the past week he has been having mid- epigastric to lower abdominal pain and because of this he hasn't been eating well. He describes the pain as a sharp pain and it is intermittent. He is without any upper abdominal pain with eating and he has not had any significant vomiting. He went to the ER several times last week and had a ct scan that showed mild pancreatitis with a dilated bile duct, but his symptoms improved with a GI cocktail and he was sent home. He apparently also went to the ER at [facility] where he again got symptomatic relief from a GI cocktail and was sent home without additional imaging. The pt currently denies any alterations in his mental status that he was apparently brought in for and he is also not currently having any abdominal pain. He has been having low grade fevers and he grew gram negative rods in his blood cultures. His urinalysis is negative and his bilirubin was noted to be mildly elevated to around 2, but his other LFTs are normal. Allergies/Medications Allergies: Coded Allergies: Penicillins (Intermediate, SWELLING 05/16/15) Home Med List: Amlodipine Besylate (Norvasc) 5 MG TABLET 1 TAB PO DAILY HEART (Reported) Aspirin (Children's Aspirin) 81 MG TAB.CHEW 1 TAB PO Q48 HEART HEALTH ( Reported) Atorvastatin Calcium (Lipitor) 20 MG TABLET 1 TAB PO DAILY HLD (Reported) Azilsartan Medoxomil (Edarbi) 40 MG TABLET 1 TAB PO DAILY Blood Pressure ( Reported) Cholecalciferol (Vitamin D3) 1,000 UNIT TABLET 1 TAB PO DAILY VITAMIN SUPPORT (Reported) Cyanocobalamin (Vitamin B-12) 1,000 MCG TABLET 1 TAB PO DAILY Supplement ( Reported) Cyclosporine (Restasis) 1 EACH DROPERETTE 1 GTT OPH BID Eye drops (Reported) Isosorbide Mononitrate (Isosorbide Mononitrate ER) 30 MG TAB.ER.24H 1 TAB PO DAILY CHEST PAIN Magnesium Oxide 400 MG TABLET 1 TAB PO DAILY SUPPLEMENT (Reported) Methylcellulose (Fiber Therapy) 500 MG TABLET 1 TAB PO DAILY SUPPLEMENT ( Reported) Metoprolol Tartrate (Lopressor) 100 MG TABLET 1 TAB PO BID Heart rate Dozier-3 Fatty Acids (Fish Oil Concentrate) 1,000 MG CAPSULE 1 CAP PO DAILY SUPPLEMENT (Reported) Omeprazole 40 MG CAPSULE.DR 1 CAP PO DAILY GI (Reported) Rivaroxaban (Xarelto) 20 MG TABLET 1 TAB PO QPM Blood thinner with food Current Medications: Current Medications Sig/Renetta Start time Last Medication Dose Route Stop Time Status Admin Acetaminophen 650 MG Q6P PRN 07/09 0300 07/09 PO 1113 Acetaminophen 1,000 MG Q6P PRN 07/09 0300 AC IV Acetaminophen 0 .STK-MED ONE 07/08 2336 DC IV Acetaminophen 1,000 MG ONCE ONE 07/08 2330 VT 07/08 N/A 1 UNIT IV 07/08 2344 2335 Atorvastatin Calcium 20 MG 1700 07/09 1700 AC PO Ceftazidime 1,000 MG Q8H 07/09 1030 AC 07/09 IV 1113 Ceftriaxone Sodium 1,000 MG 0500 07/09 0500 VT 07/09 IV 0615 Docusate Sodium 100 MG BID 07/09 0900 07/09 PO 1007 Magnesium Oxide 400 MG DAILY 07/09 1218 AC PO Metronidazole 500 MG Q8H 07/09 0500 VT 07/09 N/A 1 UNIT IV 0615 Ondansetron HCl 4 MG Q8P PRN 07/09 0300 AC IV Pantoprazole Sodium 40 MG DAILY 07/09 0900 AC 07/09 IV 1006 Phosphate 250 MG PC AND AT BEDTIME 07/09 1300 AC PO 07/10 0901 Senna/Docusate Sodium 1 TAB AT BEDTIME 07/09 2100 AC PO Sodium Chloride 1,000 ML Q6H 07/09 1300 AC 07/09 IV 1256 Sodium Chloride 1,000 ML .Q10H 07/09 0300 VT 07/09 IV 0430 Sodium Chloride 1,000 ML BOLUS ONE 07/08 2330 DC 07/08 IV 07/09 0029 2335 Sodium Chloride 1,000 ML BOLUS ONE 07/08 2330 DC 07/09 IV 07/09 0029 0122 Past History Travel History Traveled to [place] past 21 day No Medical History Neurological: NONE EENT: epistaxis Cardiovascular: AFIB (PAROXYSMAL- POST ABLATION), CAD, hypertension, hyperlipidemia, myocardial infarction, 03/04/1999- CABG X3 02/18/2001- CORDIS STENT PLACEMENT- CX ARTERY Respiratory: NONE Gastrointestinal: GERD, DIVERTICULOSIS COLI HX COLON TA/TVA Hepatic: NONE Renal: NONE Musculoskeletal: degen joint disease Psychiatric: NONE Endocrine: HYPERCALCEMIA (BORDERLINE) Blood Disorders: NONE Cancer(s): NONE HEAD CUSTODIAN/Reproductive: NONE Surgical History Surgical History: CABG, cataract removal (11/14/2014: OD with IOL), CARDIAC STENT POSSIBLE ABLATION Family History Relations & Conditions If Any: MOTHER (Non-smoker). , Age 78; Cause: Throat cancer. FATHER, , Age 82; Cause: S/P mitral valve repair. Psychosocial History Where Do You Live? Home Who Do You Live With? spouse Services at Home: None Primary Language: Cuban Smoking Status: Never Smoked Living Will? 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 Ambulation: independent IADLs Independent: shopping, housework, finances, food prep, telephone, transportation , medication admin. Review of Systems Review of Systems Constitutional: Reports: chills, fever, malaise. Denies: weakness, unexplained weight loss. EENTM: Denies: no symptoms. Cardiovascular: Denies: no symptoms. Respiratory: Denies: no symptoms. GI: Reports: see HPI. Genitourinary: Denies: no symptoms. Musculoskeletal: Denies: no symptoms. Skin: Denies: no symptoms. Neurological/Psychological: Reports: confusion. Hematologic/Endocrine: Denies: no symptoms. Immunologic/Allergic: Denies: no symptoms. All Other Systems: Reviewed and Negative Exam & Diagnostic Data Vital Signs and I&O Vital Signs Date Time Temp Pulse Resp B/P B/P Pulse O2 O2 Flow FiO2 Mean Ox Delivery Rate 07/09 1215 101.0 07/09 1113 101.0 07/09 0800 99.0 88 20 110/68 96 Room Air 07/09 0404 98 Room Air 07/09 0355 98.0 86 18 110/70 98 Room Air 07/09 0248 99.0 98 18 101/55 98 07/09 0039 100.5 62 20 108/55 95 Room Air Room Air 07/08 2335 100.4 07/08 2311 97 Room Air 07/08 2203 100.4 113 14 95/58 94 Room Air Intake & Output 07/09 04007/07 040 Intake Total 1900 Output Total 600 Balance 1300 Intake, IV 1800 Intake, Oral 100 Output, Urine 600 Patient 197 lb 200 lb Weight Weight Bed scale Reported by Patient Measurement Method Physical Exam General Appearance: well developed/nourished, no apparent distress, alert, awake , comfortable Head: atraumatic, normal appearance Eyes: Bilateral: normal appearance. Ears, Nose, Throat: normal pharynx, normal ENT inspection Neck: normal inspection, supple, full range of motion Respiratory: normal breath sounds, chest non-tender, no respiratory distress Cardiovascular: regular rate/rhythm Gastrointestinal: normal bowel sounds, soft, non-tender, no organomegaly Rectal: deferred Back: normal inspection, normal range of motion Extremities: normal inspection, no edema Neurologic/Psych: no motor/sensory deficits, awake, alert Results Pertinent Lab Results: Laboratory Tests 07/09 07/09 07/09 07/09 1015 0815 0802 0500 Chemistry Lactic Acid (0.7 - 2.1 mmol/L) 1.8 Ammonia (9 - 30 umol/L) < 9 L Toxicology Urine Opiates Screen (>2000 NG/ML) < 100 Methadone Screen (>300 NG/ML) < 40 Barbiturate Screen (>200 NG/ML) < 60 Ur Phencyclidine Scrn (>25 NG/ML) < 6.00 Amphetamines Screen (>1000 NG/ML) < 100 U Benzodiazepines Scrn (>200 NG/ML) < 85 Urine Cocaine Screen (>300 NG/ML) < 50 Urine Cannabis Screen (>50 NG/ML) < 5.00 Urines Urine Color (YEL,AMB,STR) YEL Urine Clarity (CLEAR) CLEAR Urine pH (5.0 - 8.0) 6.0 Ur Specific Kent (1.001 - 1.035) 1.015 Urine Protein (NEG,<30 MG/DL) TRACE H Urine Ketones (NEG) NEG Urine Nitrite (NEG) NEG Urine Bilirubin (NEG) NEG Urine Urobilinogen (0.1 - 1.0 EU/dl) 1.0 Ur Leukocyte Esterase (NEG) NEG Ur Microscopic SEDIMENT EXAMINED Urine RBC (0 - 5 /HPF) 1-3 Urine WBC (0 - 2 /HPF) RARE Urine Bacteria (NEG/NONE) FEW H Urine Hemoglobin (NEG) TRACE-INTACT H Urine Glucose (N MG/DL) NEG 07/09 07/09 07/08 0500 0149 2227 Chemistry Sodium (137 - 145 mmol/L) 139 Potassium (3.5 - 5.1 mmol/L) 4.4 Chloride (98 - 107 mmol/L) 106 Carbon Dioxide (22 - 30 mmol/L) 19 L Anion Gap (5 - 16) 14 BUN (9 - 20 mg/dL) 18 Creatinine (0.7 - 1.2 mg/dL) 1.3 H Estimated GFR (>60 ml/min) 54 L Glucose (65 - 99 mg/dL) 86 Lactic Acid (0.7 - 2.1 mmol/L) 2.2 H 2.1 Calcium (8.4 - 10.2 mg/dL) 9.3 Phosphorus (2.5 - 4.5 mg/dL) 3.0 Magnesium (1.6 - 2.3 mg/dL) 1.8 Total Bilirubin (0.2 - 1.3 mg/dL) 1.9 H Direct Bilirubin (< 0.4 mg/dL) 0.8 H AST (17 - 59 U/L) 54 ALT (21 - 72 U/L) 56 Alkaline Phosphatase (< 127 U/L) 69 Albumin (3.5 - 5.0 g/dL) 3.3 L Triglycerides (<150 mg/dL) 84 Cholesterol (< 200 MG/DL) 81 LDL Cholesterol, Calc (65 - 129 mg/dL) 24 L HDL Cholesterol (40 - 60 mg/dL) 41 Cholesterol/HDL Ratio (0.00 - 4.88 %) 2 TSH (0.270 - 4.200 uIU/mL) 0.716 Free T4 (0.78 - 2.44 ng/dL) 1.24 Coagulation PT (9.4 - 12.5 SEC) 16.3 H INR (0.90 - 1.17) 1.49 H APTT (25 - 37 SEC) 32 Hematology CBC w Diff MAN DIFF ORDERED WBC (4.8 - 10.8 /CUMM) 13.8 H RBC (4.70 - 6.10 /CUMM) 4.99 Hgb (14.0 - 18.0 G/DL) 14.2 Hct (42 - 52 %) 43.0 MCV (80.0 - 94.0 FL) 86.2 MCH (27.0 - 31.0 PG) 28.5 MCHC (33.0 - 37.0 G/DL) 33.1 RDW (11.5 - 14.5 %) 14.2 Plt Count (130 - 400 /CUMM) 170 MPV (7.4 - 10.4 FL) 9.0 Gran % (42.2 - 75.2 %) 88.4 H Lymphocytes % (20.5 - 51.1 %) 5.7 L Monocytes % (1.7 - 9.3 %) 5.9 Eosinophils % (0 - 5 %) 0 Basophils % (0.0 - 2.0 %) 0 Absolute Granulocytes (1.4 - 6.5 /CUMM) 12.2 H Segmented Neutrophils (42.2 - 75.2 %) 77 H Band Neutrophils (0.0 - 5.0 %) 12 H Absolute Lymphocytes (1.2 - 3.4 /CUMM) 0.8 L Lymphocytes (20.5 - 51.1 %) 5 L Monocytes (1.7 - 9.3 %) 5 Absolute Monocytes (0.10 - 0.60 /CUMM) 0.8 H Absolute Eosinophils (0.0 - 0.7 /CUMM) 0 Basophils (0.0 - 2.0 %) 1 Absolute Basophils (0.0 - 0.2 /CUMM) 0 Platelet Estimate (ADEQUATE) ADEQUATE Normochromic RBCs VERIFIED Poikilocytosis 1+ Ovalocytes 1+ Other Body Source Fld Total RBCs Counted (%) 100 Toxicology Methadone Screen Cancelled Barbiturate Screen Cancelled Ur Phencyclidine Scrn Cancelled Amphetamines Screen Cancelled U Benzodiazepines Scrn Cancelled Urine Cocaine Screen Cancelled Urine Cannabis Screen Cancelled 07/08 07/08 2220 1015 Chemistry Sodium (137 - 145 mmol/L) 136 L Potassium (3.5 - 5.1 mmol/L) 4.6 Chloride (98 - 107 mmol/L) 102 Carbon Dioxide (22 - 30 mmol/L) 16 L Anion Gap (5 - 16) 17 H BUN (9 - 20 mg/dL) 17 Creatinine (0.7 - 1.2 mg/dL) 1.3 H Estimated GFR (>60 ml/min) 54 L BUN/Creatinine Ratio (7 - 25 %) 13.1 Glucose (65 - 99 mg/dL) 116 H Lactic Acid (0.7 - 2.1 mmol/L) 3.0 H Calcium (8.4 - 10.2 mg/dL) 10.0 Total Bilirubin (0.2 - 1.3 mg/dL) 2.3 H Direct Bilirubin (< 0.4 mg/dL) 1.1 H AST (17 - 59 U/L) 38 ALT (21 - 72 U/L) 36 Alkaline Phosphatase (< 127 U/L) 89 Troponin I (<0.11 ng/ml) 0.04 Total Protein (6.3 - 8.2 g/dL) 7.5 Albumin (3.5 - 5.0 g/dL) 4.3 Globulin (1.9 - 4.2 gm/dL) 3.2 Albumin/Globulin Ratio (1.1 - 2.2 %) 1.3 Triglycerides (<150 mg/dL) 83 Amylase (30 - 110 U/L) 33 Lipase (23 - 300 U/L) 143 Hematology CBC w Diff NO MAN DIFF REQ WBC (4.8 - 10.8 /CUMM) 11.9 H RBC (4.70 - 6.10 /CUMM) 5.69 Hgb (14.0 - 18.0 G/DL) 16.4 Hct (42 - 52 %) 48.9 MCV (80.0 - 94.0 FL) 86.0 MCH (27.0 - 31.0 PG) 28.9 MCHC (33.0 - 37.0 G/DL) 33.6 RDW (11.5 - 14.5 %) 14.0 Plt Count (130 - 400 /CUMM) 224 MPV (7.4 - 10.4 FL) 9.0 Gran % (42.2 - 75.2 %) 93.1 H Lymphocytes % (20.5 - 51.1 %) 5.4 L Monocytes % (1.7 - 9.3 %) 1.5 L Eosinophils % (0 - 5 %) 0 Basophils % (0.0 - 2.0 %) 0 Absolute Granulocytes (1.4 - 6.5 /CUMM) 11.1 H Absolute Lymphocytes (1.2 - 3.4 /CUMM) 0.6 L Absolute Monocytes (0.10 - 0.60 /CUMM) 0.2 Absolute Eosinophils (0.0 - 0.7 /CUMM) 0 Absolute Basophils (0.0 - 0.2 /CUMM) 0 Toxicology Methadone Screen Cancelled Barbiturate Screen Cancelled Ur Phencyclidine Scrn Cancelled Amphetamines Screen Cancelled U Benzodiazepines Scrn Cancelled Urine Cocaine Screen Cancelled Urine Cannabis Screen Cancelled Serum Alcohol (<10 MG/DL) < 10.0 Imaging/Other Studies: SERVICE DATE: 07/07/17 EXAM TYPE: CAT - CT ABD & PELVIS W/O IV CONTRAS EXAMINATION: CT ABDOMEN AND PELVIS WITHOUT CONTRAST CLINICAL INFORMATION: Abdominal distention and pain COMPARISON: 06/30/2017 TECHNIQUE: Multidetector volumetric imaging was performed from the superior aspect of the liver through the pubic symphysis. Sagittal and coronal reformatted images were obtained on the technologist's workstation. DLP: 574.87 mGy-cm FINDINGS: LUNG BASES: There is mild dependent atelectasis at the lung bases. LIVER, GALLBLADDER, AND BILIARY TREE: The liver is normal in size, shape, and attenuation. No focal hepatic lesion or biliary ductal dilatation is present. The gallbladder appears contracted and is not well evaluated. PANCREAS: The pancreatic duct appears dilated to approximately 7 mm. A few calcifications are also noted along the pancreas, suspicious for chronic pancreatitis. Assess for underlying pancreatic mass is limited in the absence of intravenous contrast. There is mild peripancreatic stranding which appears new from prior, concerning for mild pancreatitis in the proper clinical setting. SPLEEN: Unremarkable. ADRENAL GLANDS: Unremarkable. KIDNEYS AND URETERS: The kidneys are normal in size, shape, and attenuation. No hydronephrosis, hydroureter, or calculi seen. Bilateral renal cysts are noted. No perinephric stranding. BLADDER: Unremarkable. GASTROINTESTINAL TRACT: Colonic diverticulosis is noted. The small and large bowel are otherwise unremarkable without evidence of obstruction or pericolonic inflammatory change. The appendix is unremarkable. No free fluid or free air is seen. ABDOMINAL WALL: Small fat-containing inguinal hernias are present, left greater than right. LYMPH NODES: Normal. VASCULAR: There is atherosclerotic calcification along the aorta and iliac arteries. Mild focal dilation of the infrarenal abdominal aorta is again noted. PELVIC VISCERA: Unremarkable. OSSEOUS STRUCTURES: Degenerative changes are noted in the spine. IMPRESSION: 1. Mild peripancreatic stranding, concerning for mild pancreatitis in the proper clinical setting. Additional findings suggestive of underlying chronic pancreatitis. 2. Colonic diverticulosis. SERVICE DATE: 07/09/17- EXAM TYPE: US - US-LIMITED ABDOMEN EXAMINATION: US ABDOMEN LIMITED CLINICAL INFORMATION: Confusion, abdominal pain, elevated bilirubin. Presumptive diagnosis of cholangitis. COMPARISON: CT scan of the abdomen and pelvis dated 07/07/2017 ultrasound of the abdomen dated 11/10/2015. TECHNIQUE: Real-time imaging of the right upper quadrant abdominal viscera. FINDINGS: PANCREAS: The pancreatic body is visualized and appears unremarkable. Remainder of the pancreas is largely obscured by overlying bowel gas. LIVER: Normal. The liver demonstrates normal size, contour and echogenicity. No focal lesion or intrahepatic biliary duct dilatation. GALLBLADDER: The gallbladder wall is borderline thickened, measuring up to 0.3 cm diameter. The gallbladder is otherwise unremarkable and physiologically distended without evidence of stones, sludge, polyps, or pericholecystic fluid. No sonographic Sierra's sign is elicited while scanning over the gallbladder. COMMON BILE DUCT: Dilated, measuring up to 1.0 cm in diameter. RIGHT KIDNEY: Normal. No hydronephrosis. No renal calculi or focal parenchymal lesions. The kidney measures 10.7 cm in maximum dimension. FREE FLUID: None. IMPRESSION: 1. Borderline thickening of the gallbladder wall. This is a nonspecific finding. The gallbladder is otherwise unremarkable. 2. Dilatation of the common bile duct up to approximately 1 cm, unchanged when compared to 11/10/2015. No definite choledocholithiasis is appreciated though the entirety of the common bile duct is not visualized. The head of the pancreas is also not visualized. 3. Otherwise unremarkable right upper quadrant ultrasound. Assessment/Plan Assessment/Recommendations: Assessment: Mr. Mullen is a 72 year old male who has been having abdominal pain for the past week of uncertain etiology. He is growning gram negative rods in his blood cultures and he doesn't appear to have a UTI which raises the possibility that the bacteremia is from a gastrointestinal source. He does have biliary dilation on his recent ct scan and US so a biliary source is possible, but his history is not suggestive of biliary colic, his mildly increased bilirubin is indirect with a normal alk phos, and the biliary dilation is chronic with it being appreciated on a ct scan in 2016. His biliary tree should still be further evaluated and I would recommend starting with an MRCP and based on those results an ERCP will be considered, but he is currently without RUQ pain to suggest he has cholangitis so I don't feel biliary decompression is urgent and it may not even be necessary. Recommendations: 1. Check an MRCP 2. Follow daily LFTs 3. Continue IV antibiotics and tailor abx as indicated 4. Would call an ID consult considering he has gram negative bacteremia without an obvious source 5. Analgesia as needed. 6. Diet as tolerated. Dr. Ashton will resume his GI care in the am. Problem List: 1. Pancreatitis 2. Diverticulosis 3. Diverticulosis of colon Copies To: Chely SALVADOR,Garland Ortega. Consult Acknowledgment - Thank you for your consult request.
[2017-07-09 16:00] VITALS: BP 134/76
--- NOTE | 2017-07-09 17:23 | Cons- Infect Disease ---
General Information and HPI Consulting Request Date of Consult: 07/09/17 Requested By: Carmelina Lackey MD Reason for Consult: Positive blood cultures for gram-negative rods Source of Information: patient, old records History of Present Illness: This is a 72-year-old man with a history of diabetes, hypertension, hyperlipidemia, coronary artery disease, status post CABG, atrial fibrillation, status post ablation, right renal cell carcinoma, diverticulosis, chronic pancreatitis and pancreatolithiasis, status post ERCP, pancreatic duct sphincterotomy and pancreatic duct stenting, hospitalized overnight 1 week prior to admission with left chest pain and new onset of atrial flutter, discharged on Xarelto, with a CT of the abdomen and pelvis negative for any acute process, seen in the emergency room one day prior to admission with abdominal pain, found to be afebrile with a white blood cell count of 13,[address] of the abdomen and pelvis revealing mild peripancreatic stranding, treated with a GI cocktail and discharged with a diagnosis of chronic pancreatitis, seen at [facility] following this visit and again treated with a GI cocktail in the ER, admitted on July 08 after returning to the emergency room with recurrent abdominal pain, nausea, vomiting and confusion. On admission he was febrile to 100.5. Laboratory data revealed a white blood cell count of 12,000, BUN/creatinine 17 and 1.3, bilirubin 2.3 (1.1 direct), INR 1.49. Chest x-ray was negative. CT of the head revealed a trace subarachnoid hemorrhage in the high left frontal lobe. He was begun on Ceftriaxone and Flagyl and admitted to the ICU. He was febrile to 101 today. This morning blood cultures 2 were reported positive for gram-negative rods. At present he feels improved with minimal abdominal discomfort. Allergies/Medications Allergies: Coded Allergies: Penicillins (Intermediate, SWELLING 05/16/15) Home Med List: Amlodipine Besylate (Norvasc) 5 MG TABLET 1 TAB PO DAILY HEART (Reported) Aspirin (Children's Aspirin) 81 MG TAB.CHEW 1 TAB PO Q48 HEART HEALTH ( Reported) Atorvastatin Calcium (Lipitor) 20 MG TABLET 1 TAB PO DAILY HLD (Reported) Azilsartan Medoxomil (Edarbi) 40 MG TABLET 1 TAB PO DAILY Blood Pressure ( Reported) Cholecalciferol (Vitamin D3) 1,000 UNIT TABLET 1 TAB PO DAILY VITAMIN SUPPORT (Reported) Cyanocobalamin (Vitamin B-12) 1,000 MCG TABLET 1 TAB PO DAILY Supplement ( Reported) Cyclosporine (Restasis) 1 EACH DROPERETTE 1 GTT OPH BID Eye drops (Reported) Isosorbide Mononitrate (Isosorbide Mononitrate ER) 30 MG TAB.ER.24H 1 TAB PO DAILY CHEST PAIN Magnesium Oxide 400 MG TABLET 1 TAB PO DAILY SUPPLEMENT (Reported) Methylcellulose (Fiber Therapy) 500 MG TABLET 1 TAB PO DAILY SUPPLEMENT ( Reported) Metoprolol Tartrate (Lopressor) 100 MG TABLET 1 TAB PO BID Heart rate [place]-3 Fatty Acids (Fish Oil Concentrate) 1,000 MG CAPSULE 1 CAP PO DAILY SUPPLEMENT (Reported) Omeprazole 40 MG CAPSULE.DR 1 CAP PO DAILY GI (Reported) Rivaroxaban (Xarelto) 20 MG TABLET 1 TAB PO QPM Blood thinner with food Past History Travel History Traveled to [place] past 21 day No Medical History Neurological: NONE EENT: epistaxis Cardiovascular: AFIB (PAROXYSMAL- POST ABLATION), CAD, hypertension, hyperlipidemia, myocardial infarction, 03/04/1999- CABG X3 02/18/2001- CORDIS STENT PLACEMENT- CX ARTERY Respiratory: NONE Gastrointestinal: GERD, pancreatitis, DIVERTICULOSIS COLI HX COLON TA/TVA Hepatic: NONE Renal: NONE Musculoskeletal: degen joint disease Psychiatric: NONE Endocrine: diabetes, HYPERCALCEMIA (BORDERLINE) Blood Disorders: NONE Cancer(s): renal cancer RECORD SYSTEMS ANALYST/Reproductive: NONE History of MRSA: No History of VRE: No History of CDIFF: No Isolation History: Standard Surgical History Surgical History: CABG, cataract removal (11/14/2014: OD with IOL), CARDIAC STENT POSSIBLE ABLATION Family History Relations & Conditions If Any: MOTHER (Non-smoker). , Age 78; Cause: Throat cancer. FATHER, , Age 82; Cause: S/P mitral valve repair. Psychosocial History Where Do You Live? Home Who Do You Live With? spouse Services at Home: None Primary Language: Hong Konger Smoking Status: Never Smoked Living Will? no Power of Mogul Operator/HCP? no Functional Ability ADLs Independent: dressing, eating, toileting, bathing. Ambulation: independent IADLs Independent: shopping, housework, finances, food prep, telephone, transportation , medication admin. Exam & Diagnostic Data Last 24 Hrs of Vital Signs/I&O Vital Signs Date Time Temp Pulse Resp B/P B/P Pulse O2 O2 Flow FiO2 Mean Ox Delivery Rate 07/09 1215 101.0 07/09 1113 101.0 07/09 0800 99.0 88 20 110/68 96 Room Air 07/09 0404 98 Room Air 07/09 0355 98.0 86 18 110/70 98 Room Air 07/09 0248 99.0 98 18 101/55 98 07/09 0039 100.5 62 20 108/55 95 Room Air Room Air 07/08 2335 100.4 07/08 2311 97 Room Air 07/08 2203 100.4 113 14 95/58 94 Room Air Intake & Output 07/09 1600 07/09 0800 07/09 0000 Intake Total 1300 600 Output Total 600 Balance 700 600 Intake, IV 1200 600 Intake, Oral 100 Output, Urine 600 Patient 197 lb 200 lb Weight Weight Bed scale Reported by Patient Measurement Method Physical Exam Other Physical Findings: He is awake and alert in no acute distress. T-max 101. Skin reveals no rash. HEENT exam is negative. Neck is supple with no adenopathy. Lungs are clear. Heart irregular rhythm with no murmur. Abdomen is obese, soft, minimally tender to palpation, with no guarding or rebound, with positive bowel sounds. Back no CVA tenderness. Extremities no cyanosis, clubbing or edema. Neuro is without focality. Last 24 Hours of Lab Results: Laboratory Tests 07/09 07/09 07/09 07/09 1015 0815 0802 0500 Chemistry Lactic Acid (0.7 - 2.1 mmol/L) 1.8 Ammonia (9 - 30 umol/L) < 9 L Toxicology Urine Opiates Screen (>2000 NG/ML) < 100 Methadone Screen (>300 NG/ML) < 40 Barbiturate Screen (>200 NG/ML) < 60 Ur Phencyclidine Scrn (>25 NG/ML) < 6.00 Amphetamines Screen (>1000 NG/ML) < 100 U Benzodiazepines Scrn (>200 NG/ML) < 85 Urine Cocaine Screen (>300 NG/ML) < 50 Urine Cannabis Screen (>50 NG/ML) < 5.00 Urines Urine Color (YEL,AMB,STR) YEL Urine Clarity (CLEAR) CLEAR Urine pH (5.0 - 8.0) 6.0 Ur Specific Sharon (1.001 - 1.035) 1.015 Urine Protein (NEG,<30 MG/DL) TRACE H Urine Ketones (NEG) NEG Urine Nitrite (NEG) NEG Urine Bilirubin (NEG) NEG Urine Urobilinogen (0.1 - 1.0 EU/dl) 1.0 Ur Leukocyte Esterase (NEG) NEG Ur Microscopic SEDIMENT EXAMINED Urine RBC (0 - 5 /HPF) 1-3 Urine WBC (0 - 2 /HPF) RARE Urine Bacteria (NEG/NONE) FEW H Urine Hemoglobin (NEG) TRACE-INTACT H Urine Glucose (N MG/DL) NEG 07/09 07/09 07/08 0500 0145 2227 Chemistry Sodium (137 - 145 mmol/L) 139 Potassium (3.5 - 5.1 mmol/L) 4.4 Chloride (98 - 107 mmol/L) 106 Carbon Dioxide (22 - 30 mmol/L) 19 L Anion Gap (5 - 16) 14 BUN (9 - 20 mg/dL) 18 Creatinine (0.7 - 1.2 mg/dL) 1.3 H Estimated GFR (>60 ml/min) 54 L Glucose (65 - 99 mg/dL) 86 Lactic Acid (0.7 - 2.1 mmol/L) 2.2 H 2.1 Calcium (8.4 - 10.2 mg/dL) 9.3 Phosphorus (2.5 - 4.5 mg/dL) 3.0 Magnesium (1.6 - 2.3 mg/dL) 1.8 Total Bilirubin (0.2 - 1.3 mg/dL) 1.9 H Direct Bilirubin (< 0.4 mg/dL) 0.8 H AST (17 - 59 U/L) 54 ALT (21 - 72 U/L) 56 Alkaline Phosphatase (< 127 U/L) 69 Albumin (3.5 - 5.0 g/dL) 3.3 L Triglycerides (<150 mg/dL) 84 Cholesterol (< 200 MG/DL) 81 LDL Cholesterol, Calc (65 - 129 mg/dL) 24 L HDL Cholesterol (40 - 60 mg/dL) 41 Cholesterol/HDL Ratio (0.00 - 4.88 %) 2 TSH (0.270 - 4.200 uIU/mL) 0.716 Free T4 (0.78 - 2.44 ng/dL) 1.24 Coagulation PT (9.4 - 12.5 SEC) 16.3 H INR (0.90 - 1.17) 1.49 H APTT (25 - 37 SEC) 32 Hematology CBC w Diff MAN DIFF ORDERED WBC (4.8 - 10.8 /CUMM) 13.8 H RBC (4.70 - 6.10 /CUMM) 4.99 Hgb (14.0 - 18.0 G/DL) 14.2 Hct (42 - 52 %) 43.0 MCV (80.0 - 94.0 FL) 86.2 MCH (27.0 - 31.0 PG) 28.5 MCHC (33.0 - 37.0 G/DL) 33.1 RDW (11.5 - 14.5 %) 14.2 Plt Count (130 - 400 /CUMM) 170 MPV (7.4 - 10.4 FL) 9.0 Gran % (42.2 - 75.2 %) 88.4 H Lymphocytes % (20.5 - 51.1 %) 5.7 L Monocytes % (1.7 - 9.3 %) 5.9 Eosinophils % (0 - 5 %) 0 Basophils % (0.0 - 2.0 %) 0 Absolute Granulocytes (1.4 - 6.5 /CUMM) 12.2 H Segmented Neutrophils (42.2 - 75.2 %) 77 H Band Neutrophils (0.0 - 5.0 %) 12 H Absolute Lymphocytes (1.2 - 3.4 /CUMM) 0.8 L Lymphocytes (20.5 - 51.1 %) 5 L Monocytes (1.7 - 9.3 %) 5 Absolute Monocytes (0.10 - 0.60 /CUMM) 0.8 H Absolute Eosinophils (0.0 - 0.7 /CUMM) 0 Basophils (0.0 - 2.0 %) 1 Absolute Basophils (0.0 - 0.2 /CUMM) 0 Platelet Estimate (ADEQUATE) ADEQUATE Normochromic RBCs VERIFIED Poikilocytosis 1+ Ovalocytes 1+ Other Body Source Fld Total RBCs Counted (%) 100 Toxicology Methadone Screen Cancelled Barbiturate Screen Cancelled Ur Phencyclidine Scrn Cancelled Amphetamines Screen Cancelled U Benzodiazepines Scrn Cancelled Urine Cocaine Screen Cancelled Urine Cannabis Screen Cancelled 07/08 2220 Chemistry Sodium (137 - 145 mmol/L) 136 L Potassium (3.5 - 5.1 mmol/L) 4.6 Chloride (98 - 107 mmol/L) 102 Carbon Dioxide (22 - 30 mmol/L) 16 L Anion Gap (5 - 16) 17 H BUN (9 - 20 mg/dL) 17 Creatinine (0.7 - 1.2 mg/dL) 1.3 H Estimated GFR (>60 ml/min) 54 L BUN/Creatinine Ratio (7 - 25 %) 13.1 Glucose (65 - 99 mg/dL) 116 H Lactic Acid (0.7 - 2.1 mmol/L) 3.0 H Calcium (8.4 - 10.2 mg/dL) 10.0 Total Bilirubin (0.2 - 1.3 mg/dL) 2.3 H Direct Bilirubin (< 0.4 mg/dL) 1.1 H AST (17 - 59 U/L) 38 ALT (21 - 72 U/L) 36 Alkaline Phosphatase (< 127 U/L) 89 Troponin I (<0.11 ng/ml) 0.04 Total Protein (6.3 - 8.2 g/dL) 7.5 Albumin (3.5 - 5.0 g/dL) 4.3 Globulin (1.9 - 4.2 gm/dL) 3.2 Albumin/Globulin Ratio (1.1 - 2.2 %) 1.3 Triglycerides (<150 mg/dL) 83 Amylase (30 - 110 U/L) 33 Lipase (23 - 300 U/L) 143 Hematology CBC w Diff NO MAN DIFF REQ WBC (4.8 - 10.8 /CUMM) 11.9 H RBC (4.70 - 6.10 /CUMM) 5.69 Hgb (14.0 - 18.0 G/DL) 16.4 Hct (42 - 52 %) 48.9 MCV (80.0 - 94.0 FL) 86.0 MCH (27.0 - 31.0 PG) 28.9 MCHC (33.0 - 37.0 G/DL) 33.6 RDW (11.5 - 14.5 %) 14.0 Plt Count (130 - 400 /CUMM) 224 MPV (7.4 - 10.4 FL) 9.0 Gran % (42.2 - 75.2 %) 93.1 H Lymphocytes % (20.5 - 51.1 %) 5.4 L Monocytes % (1.7 - 9.3 %) 1.5 L Eosinophils % (0 - 5 %) 0 Basophils % (0.0 - 2.0 %) 0 Absolute Granulocytes (1.4 - 6.5 /CUMM) 11.1 H Absolute Lymphocytes (1.2 - 3.4 /CUMM) 0.6 L Absolute Monocytes (0.10 - 0.60 /CUMM) 0.2 Absolute Eosinophils (0.0 - 0.7 /CUMM) 0 Absolute Basophils (0.0 - 0.2 /CUMM) 0 Toxicology Serum Alcohol (<10 MG/DL) < 10.0 Last 24 Hours of Markel Results: Blood cultures 2 July 08 positive for gram-negative rods Rapid flu swab July 09 negative Urine culture July 09 pending Diagnostic Data Recent Imaging Findings: Chest x-ray July [address] of the head July 08 revealed a trace subarachnoid hemorrhage in the high left frontal lobe Right upper quadrant ultrasound July 09 reveals borderline thickening of the gallbladder wall, with no stones, sludge, polyps or pericholecystic fluid or Sierra's sign; dilated common bile duct, unchanged from November 10, 2015, with no choledocholithiasis appreciated Assessment/Plan Assessment/Plan Impression: This is a 72-year-old man with a history of chronic pancreatitis and pancreatolithiasis, status post ERCP, pancreatic duct sphincterotomy and pancreatic duct stenting over one year prior to admission, admitted on July 08 with recurrent abdominal pain, nausea, vomiting for several days and more acute onset of confusion, found to be febrile with a mild leukocytosis and an elevated bilirubin, with a CT of the abdomen and pelvis done in the ER one day prior to admission revealing mild pancreatitis and with blood cultures 2 positive for gram-negative rods. The source of his gram-negative bacteremia is most likely intra-abdominal, given his history of chronic pancreatitis and the findings on the recent CT scan of mild peripancreatic stranding and pancreatic ductal dilatation. He has just undergone an MRCP, which should help in confirming this suspicion, and suspect he will require further intervention, including an ERCP. He has no other obvious focus of infection to explain the gram-negative rods, with his urinalysis negative. His antibiotics have been adjusted, with the Ceftriaxone switched to Ceftazidime, but feel that the Flagyl should be continued for anaerobic coverage pending final cultures and further evaluation. The significance of the trace subarachnoid bleed seen on the recent CT is unclear and Neurosurgery has been called. The right renal cell carcinoma is apparently being monitored by his urologist at [facility]. Suggestion: 1. Follow-up results of the MRCP, just recently performed 2. Follow-up final blood cultures 3. Await neurosurgical evaluation 4. Restart Flagyl 500 mg IV every 8 hours 5. Continue Ceftazidime pending above Consult Acknowledgment - Thank you for your consult request.
--- NOTE | 2017-07-09 18:16 | MRI REPORT ---
EXAMINATION: MR ABDOMEN WITHOUT CONTRAST CLINICAL INFORMATION: Cholangitis COMPARISON: Abdominal CT scan without contrast performed 07/07/2017 and 11/10/2015 TECHNIQUE: Multiple pulse sequences are obtained through the abdomen including MRCP. FINDINGS: Biliary tract: No definite intrahepatic biliary dilatation is seen. The left lobe ductal system is mildly prominent in size. The common bile duct measures up to 0.9 cm, to the level of the ampulla, without an obstructing lesion demonstrated or evidence for choledocholithiasis. This dilatation appears chronic, dating back to 11/10/2015. Pancreas: In the uncinate process, there is a multiseptated cystic lesion measuring about 2.2 x 1.8 cm. Though difficult to visualize on prior exams, due to the lack of IV contrast, this finding measured about 2.2 x 1.4 cm on exam of 11/10/2015. At the level of the proximal body and head of the pancreas, the pancreatic duct is dilated to 0.6 cm. There is a transition point at the level of the mid pancreatic body, distal to which the duct measures between 0.2 and 0.3 cm to the level the pancreatic tail. This dilatation has been seen on prior exams though not easily demonstrated due to the lack of IV contrast. There is evidence for a 0.3 cm stone in the mid pancreatic body on the recent CT scans. Liver and spleen: No remarkable findings on this noncontrast scan. Adrenal glands and kidneys: Left renal cyst is redemonstrated. No hydronephrosis. The adrenal glands appear intact. Additional findings: No adenopathy is demonstrated. No ascites. No suspicious marrow findings. IMPRESSION: 1. There is extra hepatic biliary ductal dilatation seen to the level of the ampulla without a discrete obstructing lesion. This mild dilatation seen on several previous CT scans and may relate to an underlying distal stenosis. No obstructing lesion is seen. No evidence for choledocholithiasis. 2. There is dilatation to the distal pancreatic duct within the head and proximal body. There is a transition point in the mid body distal to which the duct is of normal caliber. The etiology of this finding is not clear as one would expect the distal duct to be dilated secondary to an obstructing stone or stricture. The pancreatic ductal dilatation is of some chronicity, demonstrated on 11/10/2015. There may be a distal stenosis. 3. 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 The absence of significant change from 11/10/2015 suggests an indolent/benign IPMN. This should be followed with MR, ideally with IV contrast.
--- NOTE | 2017-07-09 22:07 | CT SCAN REPORT ---
CT HEAD WITHOUT CONTRAST CLINICAL INFORMATION: Subarachnoid hemorrhage. COMPARISON: Head CT 07/08/2017. TECHNIQUE: Contiguous axial imaging was performed from the skull base to vertex without intravenous administration of contrast. FINDINGS: Trace subarachnoid hemorrhage within a high left frontal sulcus is minimally decreased. There is no new remote hemorrhage. Chronic microangiopathy. There is no hydrocephalus, extra-axial surface collection, midline shift, or other herniation pattern. Paredes to white matter differentiation is diffusely maintained without evidence of an evolved acute territorial infarct. The basilar cisterns are preserved. No significant soft tissue abnormality. No acute osseous abnormality. There is a small fluid level within the left sphenoid sinus. The remaining imaged paranasal sinuses and the mastoid air cells are clear. IMPRESSION: - Trace subarachnoid hemorrhage within a high left frontal sulcus is minimally decreased. There is no new remote hemorrhage. - Small fluid level within the left sphenoid sinus.
[2017-07-10] VITALS: BP 120/70
[2017-07-10 05:19] LABS: ABSOLUTE BASOPHIL COUNT 0 /CUMM (0.0-0.2); ABSOLUTE EOSINOPHIL COUNT 0.1 /CUMM (0.0-0.7); ABSOLUTE GRANULOCYTE CT 6.8 /CUMM (1.4-6.5); ABSOLUTE LYMPH COUNT 1.2 /CUMM (1.2-3.4); ABSOLUTE MONOCYTE COUNT 0.8 /CUMM (0.10-0.60); BASOPHIL % 0.2 % (0.0-2.0); EOSINOPHIL % 1.6 % (0-5); GRANULOCYTE % 75.5 % (42.2-75.2); HEMATOCRIT 41.4 % (42-52); MEAN CORPUSCULAR HGB 28.7 PG (27.0-31.0); MEAN CORPUSCULAR HGB CONC 33.5 G/DL (33.0-37.0); MEAN CORPUSCULAR VOLUME 85.7 FL (80.0-94.0); MEAN PLATELET VOLUME 9.1 FL (7.4-10.4); PLATELET COUNT 118 /CUMM (130-400); RBC DISTRIBUTION WIDTH 14.4 % (11.5-14.5); RED BLOOD CELL CT 4.83 /CUMM (4.70-6.10)
[2017-07-10 08:00] VITALS: BP 140/75
--- NOTE | 2017-07-10 08:27 | PN- Resident CRCU ---
Subjective HPI/CRCU Issues: 1. Mild pancreatitis, cholestasis Suspicion of CBD stone, questionable ascending cholangitis given mild temperature, pain, leukocytosis and cholestasis 2. Subarachnoid hemorrhage 3. Hx of HTN and HLD 4. Hx of CAD s/p CABG 5. Hx of A. fib S/P ablation, recently diagnosed A flutter on Xarelto 24 Hour Events: Patient states his abdominal pain is minimal but it feels tense and distended. Also has a back and most probably from lying in the bed. Denies any nausea and vomiting. Also denies any headache, weakness/numbness or turning in any part of the body. Objective Vital Signs & I&O Last 8 Hrs of Vitals and I&O: Intake & Output 07/10 1600 Intake Total 1450 Output Total 300 Balance 1150 Intake, IV 850 Intake, Oral 600 Number 1 Bowel Movements Output, Urine 300 Exam General Appearance: well developed/nourished, alert, awake, comfortable Head: atraumatic, normal appearance Respiratory: normal breath sounds, chest non-tender, lungs clear Cardiovascular: regular rate/rhythm Gastrointestinal: normal bowel sounds, soft, distention, tenderness (mild gen, sierra sign negative), Tense Extremities: normal inspection, no edema Current Medications: Current Medications Sig/Renetta Start time Last Medication Dose Route Stop Time Status Admin Acetaminophen 650 MG Q6P PRN 07/09 0300 AC 07/09 PO 2009 Acetaminophen 1,000 MG Q6P PRN 07/09 0300 AC IV Aspirin 325 MG .STK-MED ONE 07/09 1149 DC PO 07/09 1150 Atorvastatin Calcium 20 MG 1700 07/09 1700 AC 07/09 PO 1853 Ceftazidime 1,000 MG Q8H 07/09 1030 AC 07/10 IV 0214 Docusate Sodium 100 MG BID 07/09 0900 AC 07/10 PO 0803 Magnesium Oxide 400 MG DAILY 07/09 1218 AC 07/10 PO 0803 Metronidazole 500 MG IQ8 07/09 1830 AC 07/10 N/A 1 UNIT IV 0759 Metronidazole 500 MG Q8H 07/09 0500 DC 07/09 N/A 1 UNIT IV 0615 Ondansetron HCl 4 MG Q8P PRN 07/09 0300 AC IV Pantoprazole Sodium 40 MG DAILY 07/09 0900 AC 07/10 IV 0803 Phosphate 250 MG PC AND AT BEDTIME 07/10 0900 AC PO Phosphate 250 MG PC AND AT BEDTIME 07/09 1300 DC 07/10 PO 07/10 0901 0803 Potassium Phosphate 15 mMol ONE ONE 07/10 0845 AC Sodium Chloride 250 ML IV 07/10 1249 Senna/Docusate Sodium 1 TAB AT BEDTIME 07/09 2100 AC 07/09 PO 2109 Sodium Chloride 1,000 ML Q6H 07/09 1300 AC 07/[address] Scan Findings: Head CT FINDINGS: Trace subarachnoid hemorrhage within a high left frontal sulcus is minimally decreased. There is no new remote hemorrhage. Chronic microangiopathy. There is no hydrocephalus, extra-axial surface collection, midline shift, or other herniation pattern. Paredes to white matter differentiation is diffusely maintained without evidence of an evolved acute territorial infarct. The basilar cisterns are preserved. No significant soft tissue abnormality. No acute osseous abnormality. There is a small fluid level within the left sphenoid sinus. The remaining imaged paranasal sinuses and the mastoid air cells are clear. IMPRESSION: - Trace subarachnoid hemorrhage within a high left frontal sulcus is minimally decreased. There is no new remote hemorrhage. - Small fluid level within the left sphenoid sinus. Impression/Plan Impression/Problem List Impression: Patient is 72-year-old male with past medical history of diabetes, hypertension, hyperlipidemia, CABG and stent, atrial fibrillation status post ablation, pancreatitis, recent hospitalization on 07/01 for chest pain and a flutter started on Xarelto presenting this admission with confusion and abdominal pain. Vitals at the time of admission were : T max 100.5, pulse 113, RR 14, blood pressure 95/58 on arrival improved to 108/55, saturating well on room air. On exam: A O 3, cooperative, no acute distress, neck supple, JVD normal, no lymphadenopathy, mucosa moist, complete neurological examination unremarkable, no dependent edema, no obvious skin rashes or inflammation CVS: S1-S2, RRR. RS: Clear to auscultate bilaterally. Abdomen: Soft, ND, bowel sounds present, very mild right upper quadrant tenderness, no Sierra's sign, no guarding or rigidity. CT head without contrast: Trace subarachnoid hemorrhage in the high left frontal lobe. Patient will be admitted to the ICU due to subarachnoid hemorrhage requiring close monitorin. Mild pancreatitis, cholestasis Suspicion of CBD stone, questionable ascending cholangitis given mild temperature, pain, leukocytosis and cholestasis 2. Subarachnoid hemorrhage 3. Hx of HTN and HLD 4. Hx of CAD s/p CABG 5. A. fib S/P ablation, recently diagnosed A flutter on Xarelto Respiratory; no, stable still at this point Infectious; 1. Mild pancreatitis, cholestasis Suspicion of CBD stone, questionable ascending cholangitis(given mild temperature, pain, leukocytosis and cholestasis) . Patient presented with abdominal pain, nausea and vomiting. Also had an elevated lactic acid. Amylase and Lipase normal. Total bilirubin at the time of admission was 2.3 trending down to 1.9--> 1.4 with direct bilirubin of 0.8. Lactic acid trended down. Right upper quadrant ultrasound showed Borderline thickening of the gallbladder wall and dilatation of the common bile duct up to approximately 1 cm, unchanged when compared to 11/10/2015 without any definite choledocholithiasis. He also had an MRCP done showing extra hepatic biliary ductal dilatation seen to the level of the ampulla without a discrete obstructing lesion. no Sierra's sign, no guarding or rigidity. Blood Cx growing GNR, ?? GI source. UA negative, Urine Cx pending. - NPO in case GI would like to pursue with the ERSP, if not will start the pt on clear liquids. - Continue gentle IV fluid hydration. Change fluids from normal saline to lactated Ringer at 75 mL's per hour. - Continue flagyl and change ceftaz to ceftriaxone. Day 2 of antibiotics. - Zofran as needed for nausea and vomiting - f/u final blood culture and sensitivities. - Appreciate GI recommendations; patient may need an ERCP. - Repeat CBC and CMP in am Cardiology; 1. Recently diagnosed A.Flutter on Xrelto; Patient is scheduled for an echocardiogram and a stress test as an outpatient with Dr. Dowling next week, 1 glass technician/installer notified of the patient's hospitalization. - Continue to hold Xarelto because of the subarachnoid hemorrhage. 2. Hx of Hypertention; - Continue home medications 3. History of hyperlipidemia - Continue atorvastatin 20 mg daily 4. History of CAD status post CABG - Continue home medications except aspirin(subarachnoid hemorrhage). Heme; 1. Leukocytosis; likely due to mild pancreatitis,?? cholangitis Metabolic 1. ELectrolyte abnormalities; - Continue to monitor and replete accordingly. Alimentary; As above Neuro; 1. SAH; Patient was brought in because of new onset confusion per the . Head CT was done showing small left frontal SAH. Patient denies any trauma or fall. Also has not been taking his Xarelto for the past 2 days because of nausea and vomiting. Repeat CAT scan was done on 07/09/2017 which showed minimal decrease in the size of the subarachnoid hemorrhage. - Neurochecks every 1 to 2 hours - Monitor vitals closely. - Neurosurgery consult - Spoke with Dr. Maria over the phone, states she went over the CAT scan results patient does not need any surgical intervention at this time, recommends neurology evaluation. - Appreciate await recommendations. - Follow-up MRA DVT prophylaxis: Alps only due to subarachnoid hemorrhage Diet: Nothing by mouth. Code: Full code Downgraded to gen Med. Problem List: 1. Cholestasis 2. Acute on chronic pancreatitis 3. Subarachnoid bleed Pain Ratin Pain Location: Abdomen Pain Goal: Remain pain free Pain Plan: Pain Pathway Tomorrow's Labs & Rationales: CBC ICU Bundle Plan DVT/Prophylaxis: mechanical
--- NOTE | 2017-07-10 10:45 | PN- Infect Dx ---
Subjective Subjective: T-max 101.8. He notes some abdominal discomfort Objective Last 24 Hrs of Vital Signs/I&O Vital Signs Date Time Temp Pulse Resp B/P B/P Pulse O2 O2 Flow FiO2 Mean Ox Delivery Rate 07/10 0400 93 Room Air Room Air 07/10 0000 93 Room Air Room Air 07/10 0000 98.4 84 30 120/70 93 Room Air Room Air 07/09 2111 100.7 07/09 2010 101.8 07/09 2000 98 Room Air Room Air 07/09 1600 99.9 100 20 134/76 94 Room Air 07/09 1215 101.0 07/09 1113 101.0 Intake & Output 07/10 1600 07/10 0800 07/10 0000 Intake Total 1062 961 Output Total 500 200 Balance 562 761 Intake, IV 1062 721 Intake, Oral 240 Number 2 0 Bowel Movements Output, Urine 500 200 Physical Exam Other Physical Findings: He appears comfortable in no acute distress Lungs are clear Heart irregular rhythm with no murmur Abdomen is obese, soft, tender on palpation over the mid abdomen Extremities no cyanosis, clubbing or edema Results Last 24 Hours of Lab Results: Laboratory Tests 07/10 0453 Chemistry Sodium (137 - 145 mmol/L) 140 Potassium (3.5 - 5.1 mmol/L) 3.9 Chloride (98 - 107 mmol/L) 109 H Carbon Dioxide (22 - 30 mmol/L) 20 L Anion Gap (5 - 16) 11 BUN (9 - 20 mg/dL) 21 H Creatinine (0.7 - 1.2 mg/dL) 1.2 Estimated GFR (>60 ml/min) 59 L Glucose (65 - 99 mg/dL) 84 Calcium (8.4 - 10.2 mg/dL) 9.0 Phosphorus (2.5 - 4.5 mg/dL) 2.1 L Magnesium (1.6 - 2.3 mg/dL) 2.2 Total Bilirubin (0.2 - 1.3 mg/dL) 1.4 H Direct Bilirubin (< 0.4 mg/dL) 0.8 H AST (17 - 59 U/L) 49 ALT (21 - 72 U/L) 65 Alkaline Phosphatase (< 127 U/L) 69 Total Protein (6.3 - 8.2 g/dL) 5.7 L Albumin (3.5 - 5.0 g/dL) 2.9 L Hematology CBC w Diff NO MAN DIFF REQ WBC (4.8 - 10.8 /CUMM) 9.0 RBC (4.70 - 6.10 /CUMM) 4.83 Hgb (14.0 - 18.0 G/DL) 13.9 L Hct (42 - 52 %) 41.4 L MCV (80.0 - 94.0 FL) 85.7 MCH (27.0 - 31.0 PG) 28.7 MCHC (33.0 - 37.0 G/DL) 33.5 RDW (11.5 - 14.5 %) 14.4 Plt Count (130 - 400 /CUMM) 118 L MPV (7.4 - 10.4 FL) 9.1 Gran % (42.2 - 75.2 %) 75.5 H Lymphocytes % (20.5 - 51.1 %) 13.3 L Monocytes % (1.7 - 9.3 %) 9.4 H Eosinophils % (0 - 5 %) 1.6 Basophils % (0.0 - 2.0 %) 0.2 Absolute Granulocytes (1.4 - 6.5 /CUMM) 6.8 H Absolute Lymphocytes (1.2 - 3.4 /CUMM) 1.2 Absolute Monocytes (0.10 - 0.60 /CUMM) 0.8 H Absolute Eosinophils (0.0 - 0.7 /CUMM) 0.1 Absolute Basophils (0.0 - 0.2 /CUMM) 0 Last 24 Hours of Markel Results: Blood cultures 2 July 08 positive for probable E. coli, sensitivities pending Urine culture July 09 negative Recent Imaging Studies: CT of the head July 09 reveals a minimal decrease in the trace subarachnoid hemorrhage within the high left frontal sulcus Assessment/Plan ID Impression: Stable, with decreased abdominal pain and tenderness and decreased white blood cell count, though he remains febrile, on Ceftazidime and Flagyl, Day 2 of treatment for probable E. coli sepsis, most likely secondary to a biliary/ pancreatic process, given his history of chronic pancreatitis and his MRCP findings. The subarachnoid bleed is minimally decreased on his follow-up CT scan and is of unclear significance. Suggestion: 1. Await GI follow-up regarding further workup, including possible ERCP 2. Await neurosurgical evaluation regarding his subarachnoid bleed 3. Follow-up final blood cultures 4. Discontinue Ceftazidime 5. Restart Ceftriaxone 1 g IV every 24 hours 6. Continue Flagyl Thao Mcmullen MD is covering over the weekend
--- NOTE | 2017-07-10 11:30 | PN- CRCU ---
Subjective HPI/Critical Care Issues: T-max 101.8. He notes some abdominal discomfort IN SINUS NO sig abd pain Objective Current Medications: Current Medications Sig/Renetta Start time Last Medication Dose Route Stop Time Status Admin Acetaminophen 650 MG Q6P PRN 07/09 0300 AC 07/09 PO 2010 Acetaminophen 1,000 MG Q6P PRN 07/09 0300 AC IV Aspirin 325 MG .STK-MED ONE 07/09 1149 DC PO 07/09 1150 Atorvastatin Calcium 20 MG 1700 07/09 1700 AC 07/09 PO 1853 Ceftazidime 1,000 MG Q8H 07/09 1030 AC 07/10 IV 0214 Docusate Sodium 100 MG BID 07/09 0900 07/10 PO 0803 Magnesium Oxide 400 MG DAILY 07/09 1218 AC 07/10 PO 0803 Metronidazole 500 MG IQ8 07/09 1830 AC 07/10 N/A 1 UNIT IV 0759 Metronidazole 500 MG Q8H 07/09 0500 DC 07/09 N/A 1 UNIT IV 0615 Ondansetron HCl 4 MG Q8P PRN 07/09 0300 AC IV Pantoprazole Sodium 40 MG DAILY 07/09 0900 AC 07/10 IV 0803 Phosphate 250 MG PC AND AT BEDTIME 07/10 0900 AC PO Phosphate 250 MG PC AND AT BEDTIME 07/09 1300 DC 07/10 PO 07/10 0901 0803 Potassium Phosphate 15 mMol ONE ONE 07/10 0845 AC Sodium Chloride 250 ML IV 07/10 1249 Senna/Docusate Sodium 1 TAB AT BEDTIME 07/09 2100 07/09 PO 2109 Sodium Chloride 1,000 ML Q6H 07/09 1300 AC 07/10 IV 0804 Vital Signs & I&O Last 24 Hrs of Vitals and I&O: Vital Signs Date Time Temp Pulse Resp B/P B/P Pulse O2 O2 Flow FiO2 Mean Ox Delivery Rate 07/10 0400 93 Room Air Room Air 07/10 0000 93 Room Air Room Air 07/10 0000 98.4 84 30 120/70 93 Room Air Room Air 07/09 2111 100.7 07/09 2009 101.8 07/10 1999 98 Room Air Room Air 07/09 1600 99.9 100 20 134/76 94 Room Air 07/09 1215 101.0 Intake & Output 07/10 1600 07/10 0800 07/10 0000 Intake Total 1062 961 Output Total 500 200 Balance 562 761 Intake, IV 1062 721 Intake, Oral 240 Number 2 0 Bowel Movements Output, Urine 500 200 Laboratory Tests 07/10 07/09 0453 1015 Chemistry Sodium (137 - 145 mmol/L) 140 Potassium (3.5 - 5.1 mmol/L) 3.9 Chloride (98 - 107 mmol/L) 109 H Carbon Dioxide (22 - 30 mmol/L) 20 L Anion Gap (5 - 16) 11 BUN (9 - 20 mg/dL) 21 H Creatinine (0.7 - 1.2 mg/dL) 1.2 Estimated GFR (>60 ml/min) 59 L Glucose (65 - 99 mg/dL) 84 Calcium (8.4 - 10.2 mg/dL) 9.0 Phosphorus (2.5 - 4.5 mg/dL) 2.1 L Magnesium (1.6 - 2.3 mg/dL) 2.2 Total Bilirubin (0.2 - 1.3 mg/dL) 1.4 H Direct Bilirubin (< 0.4 mg/dL) 0.8 H AST (17 - 59 U/L) 49 ALT (21 - 72 U/L) 65 Alkaline Phosphatase (< 127 U/L) 69 Total Protein (6.3 - 8.2 g/dL) 5.7 L Albumin (3.5 - 5.0 g/dL) 2.9 L Hematology CBC w Diff NO MAN DIFF REQ WBC (4.8 - 10.8 /CUMM) 9.0 RBC (4.70 - 6.10 /CUMM) 4.83 Hgb (14.0 - 18.0 G/DL) 13.9 L Hct (42 - 52 %) 41.4 L MCV (80.0 - 94.0 FL) 85.7 MCH (27.0 - 31.0 PG) 28.7 MCHC (33.0 - 37.0 G/DL) 33.5 RDW (11.5 - 14.5 %) 14.4 Plt Count (130 - 400 /CUMM) 118 L MPV (7.4 - 10.4 FL) 9.1 Gran % (42.2 - 75.2 %) 75.5 H Lymphocytes % (20.5 - 51.1 %) 13.3 L Monocytes % (1.7 - 9.3 %) 9.4 H Eosinophils % (0 - 5 %) 1.6 Basophils % (0.0 - 2.0 %) 0.2 Absolute Granulocytes (1.4 - 6.5 /CUMM) 6.8 H Absolute Lymphocytes (1.2 - 3.4 /CUMM) 1.2 Absolute Monocytes (0.10 - 0.60 /CUMM) 0.8 H Absolute Eosinophils (0.0 - 0.7 /CUMM) 0.1 Absolute Basophils (0.0 - 0.2 /CUMM) 0 Urines Urine Color (YEL,AMB,STR) YEL Urine Clarity (CLEAR) CLEAR Urine pH (5.0 - 8.0) 6.0 Ur Specific [place] (1.001 - 1.035) 1.015 Urine Protein (NEG,<30 MG/DL) TRACE H Urine Ketones (NEG) NEG Urine Nitrite (NEG) NEG Urine Bilirubin (NEG) NEG Urine Urobilinogen (0.1 - 1.0 EU/dl) 1.0 Ur Leukocyte Esterase (NEG) NEG Ur Microscopic SEDIMENT EXAMINED Urine RBC (0 - 5 /HPF) 1-3 Urine WBC (0 - 2 /HPF) RARE Urine Bacteria (NEG/NONE) FEW H Urine Hemoglobin (NEG) TRACE-INTACT H Urine Glucose (N MG/DL) NEG 07/09 07/09 07/09 07/09 0815 0802 0500 0500 Chemistry Sodium (137 - 145 mmol/L) 139 Potassium (3.5 - 5.1 mmol/L) 4.4 Chloride (98 - 107 mmol/L) 106 Carbon Dioxide (22 - 30 mmol/L) 19 L Anion Gap (5 - 16) 14 BUN (9 - 20 mg/dL) 18 Creatinine (0.7 - 1.2 mg/dL) 1.3 H Estimated GFR (>60 ml/min) 54 L Glucose (65 - 99 mg/dL) 86 Lactic Acid (0.7 - 2.1 mmol/L) 1.8 2.2 H Calcium (8.4 - 10.2 mg/dL) 9.3 Phosphorus (2.5 - 4.5 mg/dL) 3.0 Magnesium (1.6 - 2.3 mg/dL) 1.8 Total Bilirubin (0.2 - 1.3 mg/dL) 1.9 H Direct Bilirubin (< 0.4 mg/dL) 0.8 H AST (17 - 59 U/L) 54 ALT (21 - 72 U/L) 56 Alkaline Phosphatase (< 127 U/L) 69 Ammonia (9 - 30 umol/L) < 9 L Albumin (3.5 - 5.0 g/dL) 3.3 L Triglycerides (<150 mg/dL) 84 Cholesterol (< 200 MG/DL) 81 LDL Cholesterol, Calc (65 - 129 mg/dL) 24 L HDL Cholesterol (40 - 60 mg/dL) 41 Cholesterol/HDL Ratio (0.00 - 4.88 %) 2 TSH (0.270 - 4.200 uIU/mL) 0.716 Free T4 (0.78 - 2.44 ng/dL) 1.24 Coagulation PT (9.4 - 12.5 SEC) 16.3 H INR (0.90 - 1.17) 1.49 H APTT (25 - 37 SEC) 32 Hematology CBC w Diff MAN DIFF ORDERED WBC (4.8 - 10.8 /CUMM) 13.8 H RBC (4.70 - 6.10 /CUMM) 4.99 Hgb (14.0 - 18.0 G/DL) 14.2 Hct (42 - 52 %) 43.0 MCV (80.0 - 94.0 FL) 86.2 MCH (27.0 - 31.0 PG) 28.5 MCHC (33.0 - 37.0 G/DL) 33.1 RDW (11.5 - 14.5 %) 14.2 Plt Count (130 - 400 /CUMM) 170 MPV (7.4 - 10.4 FL) 9.0 Gran % (42.2 - 75.2 %) 88.4 H Lymphocytes % (20.5 - 51.1 %) 5.7 L Monocytes % (1.7 - 9.3 %) 5.9 Eosinophils % (0 - 5 %) 0 Basophils % (0.0 - 2.0 %) 0 Absolute Granulocytes (1.4 - 6.5 /CUMM) 12.2 H Segmented Neutrophils (42.2 - 75.2 %) 77 H Band Neutrophils (0.0 - 5.0 %) 12 H Absolute Lymphocytes (1.2 - 3.4 /CUMM) 0.8 L Lymphocytes (20.5 - 51.1 %) 5 L Monocytes (1.7 - 9.3 %) 5 Absolute Monocytes (0.10 - 0.60 /CUMM) 0.8 H Absolute Eosinophils (0.0 - 0.7 /CUMM) 0 Basophils (0.0 - 2.0 %) 1 Absolute Basophils (0.0 - 0.2 /CUMM) 0 Platelet Estimate (ADEQUATE) ADEQUATE Normochromic RBCs VERIFIED Poikilocytosis 1+ Ovalocytes 1+ Other Body Source Fld Total RBCs Counted (%) 100 Toxicology Urine Opiates Screen (>2000 NG/ML) < 100 Methadone Screen (>300 NG/ML) < 40 Barbiturate Screen (>200 NG/ML) < 60 Ur Phencyclidine Scrn (>25 NG/ML) < 6.00 Amphetamines Screen (>1000 NG/ML) < 100 U Benzodiazepines Scrn (>200 NG/ML) < 85 Urine Cocaine Screen (>300 NG/ML) < 50 Urine Cannabis Screen (>50 NG/ML) < 5.00 07/09 07/08 07/08 0145 2227 2220 Chemistry Sodium (137 - 145 mmol/L) 136 L Potassium (3.5 - 5.1 mmol/L) 4.6 Chloride (98 - 107 mmol/L) 102 Carbon Dioxide (22 - 30 mmol/L) 16 L Anion Gap (5 - 16) 17 H BUN (9 - 20 mg/dL) 17 Creatinine (0.7 - 1.2 mg/dL) 1.3 H Estimated GFR (>60 ml/min) 54 L BUN/Creatinine Ratio (7 - 25 %) 13.1 Glucose (65 - 99 mg/dL) 116 H Lactic Acid (0.7 - 2.1 mmol/L) 2.1 3.0 H Calcium (8.4 - 10.2 mg/dL) 10.0 Total Bilirubin (0.2 - 1.3 mg/dL) 2.3 H Direct Bilirubin (< 0.4 mg/dL) 1.1 H AST (17 - 59 U/L) 38 ALT (21 - 72 U/L) 36 Alkaline Phosphatase (< 127 U/L) 89 Troponin I (<0.11 ng/ml) 0.04 Total Protein (6.3 - 8.2 g/dL) 7.5 Albumin (3.5 - 5.0 g/dL) 4.3 Globulin (1.9 - 4.2 gm/dL) 3.2 Albumin/Globulin Ratio (1.1 - 2.2 %) 1.3 Triglycerides (<150 mg/dL) 83 Amylase (30 - 110 U/L) 33 Lipase (23 - 300 U/L) 143 Hematology CBC w Diff NO MAN DIFF REQ WBC (4.8 - 10.8 /CUMM) 11.9 H RBC (4.70 - 6.10 /CUMM) 5.69 Hgb (14.0 - 18.0 G/DL) 16.4 Hct (42 - 52 %) 48.9 MCV (80.0 - 94.0 FL) 86.0 MCH (27.0 - 31.0 PG) 28.9 MCHC (33.0 - 37.0 G/DL) 33.6 RDW (11.5 - 14.5 %) 14.0 Plt Count (130 - 400 /CUMM) 224 MPV (7.4 - 10.4 FL) 9.0 Gran % (42.2 - 75.2 %) 93.1 H Lymphocytes % (20.5 - 51.1 %) 5.4 L Monocytes % (1.7 - 9.3 %) 1.5 L Eosinophils % (0 - 5 %) 0 Basophils % (0.0 - 2.0 %) 0 Absolute Granulocytes (1.4 - 6.5 /CUMM) 11.1 H Absolute Lymphocytes (1.2 - 3.4 /CUMM) 0.6 L Absolute Monocytes (0.10 - 0.60 /CUMM) 0.2 Absolute Eosinophils (0.0 - 0.7 /CUMM) 0 Absolute Basophils (0.0 - 0.2 /CUMM) 0 Toxicology Methadone Screen Cancelled Barbiturate Screen Cancelled Ur Phencyclidine Scrn Cancelled Amphetamines Screen Cancelled U Benzodiazepines Scrn Cancelled Urine Cocaine Screen Cancelled Urine Cannabis Screen Cancelled Serum Alcohol (<10 MG/DL) < 10.0 Microbiology Date/Time Procedure - Status Source Growth 07/09 1015 Urine Culture - RES URINE ROUT 07/09 1002 Urine Culture - COLB URINE ROUT 07/09 0500 Influenza Virus A & B Rapid Smear - COMP NASOPHARYN 07/09 0345 Surveillance Culture - COMP UPPER RESP 07/09 0325 Surveillance Culture - CAN GI Cancelled: Cancelled via OE: PT REFUSED 04/25 2230 Blood Culture - RES BLOOD GRAM NEGATIVE RODS 07/09 2219 Blood Culture - RES BLOOD GRAM NEGATIVE RODS Impression/Plan Impression/Plan Impression/Plan: CIMPRESSION: - Trace subarachnoid hemorrhage within a high left frontal sulcus is minimally decreased. There is no new remote hemorrhage. - Small fluid level within the left sphenoid sinus. DICTATED BY: Moe Man MD DATE/TIME DICTATED:07/09/172157 T head MRI IMPRESSION: 1. There is extra hepatic biliary ductal dilatation seen to the level of the ampulla without a discrete obstructing lesion. This mild dilatation seen on several previous CT scans and may relate to an underlying distal stenosis. No obstructing lesion is seen. No evidence for choledocholithiasis. 2. There is dilatation to the distal pancreatic duct within the head and proximal body. There is a transition point in the mid body distal to which the duct is of normal caliber. The etiology of this finding is not clear as one would expect the distal duct to be dilated secondary to an obstructing stone or stricture. The pancreatic ductal dilatation is of some chronicity, demonstrated on 11/10/2015. There may be a distal stenosis. 3. 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 The absence of significant change from 11/10/2015 suggests an indolent/benign IPMN. This should be followed with MR, ideally with IV contrast. DICTATED BY: Sabino Hart MD DATE/TIME DICTATED:07/09/171748 Pt with previous recurrent pancreatitis with previous ercp etc, with multiple ER visits with abd pain (2x [facility] and [facility]), now with Gram neg sepsis - due to pancreaticobiliary etiology with abd pain, elevated bili and prior history of ercp etc Recent flutter in sinus - was on xeralto, has not taken xarelto since thursday morning per pt Head CT shows SAH - very mild by ct and no headache or trauma etc CAD, CABG, pafib, HTN, HLD, Previous abalation for afib Elevated pancreas enzyme REC COnt abx per ID Change Ivf to d5 rl at 75 cc Neurosurg consult - Dr. Maria, aware, neuro consult DC all anticoag Venodyne boots NPO ask gi to comment Ok to the floor
--- NOTE | 2017-07-10 12:12 | Transfer of Care Summary ---
Hospital Course Course Hospital Course: Patient is 72-year-old male with past medical history of diabetes, hypertension, hyperlipidemia, CABG and stent, atrial fibrillation status post ablation, pancreatitis, recent hospitalization on 07/01 for chest pain and a flutter started on Xarelto presenting this admission with confusion and abdominal pain. Vitals at the time of admission were : T max 100.5, pulse 113, RR 14, blood pressure 95/58 on arrival improved to 108/55, saturating well on room air. On exam: A O 3, cooperative, no acute distress, neck supple, JVD normal, no lymphadenopathy, mucosa moist, complete neurological examination unremarkable, no dependent edema, no obvious skin rashes or inflammation CVS: S1-S2, RRR. RS: Clear to auscultate bilaterally. Abdomen: Soft, ND, bowel sounds present, very mild right upper quadrant tenderness, no Sierra's sign, no guarding or rigidity. CT head without contrast: Trace subarachnoid hemorrhage in the high left frontal lobe. Patient was admitted to the ICU due to subarachnoid hemorrhage requiring close monitorin. Mild pancreatitis on CT scan, amylase and lipase level normal 2. Chronic Cholestasis Suspicion of CBD stone 3. ESBL E.coli Bacteremia 4. Subarachnoid hemorrhage 4. Hx of HTN and HLD 5. Hx of CAD s/p CABG 6. A. fib S/P ablation, recently diagnosed A flutter on Xarelto 1. ESBL E.Coli Bacteremai; Patient presented with abdominal pain, nausea and vomiting. Also had an elevated lactic acid, trended down with IV fluids. Amylase and Lipase normal. Total bilirubin at the time of admission was 2.3 trending down to 1.9--> 1.4 with direct bilirubin of 0.8. CAT scan of abdomen was done on 07/07 which showed mild pancreatitis and cholestasis. Given mild temperature, pain, leukocytosis and cholestasis patient cholangitis was also suspected. Right upper quadrant ultrasound obtained during this admission showed Borderline thickening of the gallbladder wall and dilatation of the common bile duct up to approximately 1 cm, unchanged when compared to 11/10/2015 without any definite choledocholithiasis. He also has a MRCP done showing extra hepatic biliary ductal dilatation seen to the level of the ampulla without a discrete obstructing lesion. No Sierra's sign, no guarding or rigidity on examination. Patient has had extensive workup done in the past including an EUS and ERCP. Blood Cx growing ESBL E.Coli, likely hepatobiliary source. Urine Cx negative. - PAtient on full liquid diet advance as tolerated. - DAy 1 of Meropenem for ESBL E.Coli. (Got ceftriaxone and flagyl x 3 days). - f/u repeat blood Cx in am. - f/u ID recommendations. - Zofran as needed for nausea and vomiting - GI recommendations; follow up JULIET and IgG4 level. Signed off as need outpatient follow up with his [facility] Dr. Canela at [place]. - Repeat CBC and CMP in am SAH; Patient was brought in because of new onset confusion per the . Head CT was done showing small left frontal SAH. Patient denies any trauma or fall. Also has not been taking his Xarelto for the past 2 days because of nausea and vomiting. Repeat CAT scan was done on 07/09/2017 which showed minimal decrease in the size of the subarachnoid hemorrhage. - Neurochecks Q4H - Neurosurgery consult - No surgical intervention needed at this time. 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 Okay with baby aspirin but continue to hold Xarelto. Hx of A.fib with Recently diagnosed A.Flutter on Xrelto; Currently in Normal sinus. Patient is scheduled for an echocardiogram and a stress test as an outpatient with Dr. Mccord next week, toe trimmer notified of the patient's hospitalization. - Continue to hold Xarelto because of the subarachnoid hemorrhage/aneurysms. - Recommend seeing Dr. Antonio CHRISTY after discharge within the month to assess if any intervention is needed. Hx of Hypertention; - Continue home medications History of hyperlipidemia - Continue atorvastatin 20 mg daily History of CAD status post CABG - Continue home medications except aspirin(subarachnoid hemorrhage). Hypophosphatemia; 2.1 today - Continue to monitor and replete accordingly. DVT prophylaxis: Alps only due to subarachnoid hemorrhage Diet: Nothing by mouth. Code: Full code Assessment/Plan: See Above Code: Full code Assessment/Plan: See Above
--- NOTE | 2017-07-10 12:43 | Cons- Cardiology ---
General Information and HPI Consulting Request Date of Consult: 07/10/17 Requested By: Marcie SALVADOR,Norbert Butt Reason for Consult: Atrial flutter Source of Information: patient, family, old records History of Present Illness: This is a very pleasant 72-year-old male with a past medical history 4V CABG in 1998 with PCI to the circumflex in 2000 and a known graft occlusions to the circumflex and diagonal, hypertension, hyperlipidemia, and PVCs with no inducible VT by EP study in 2011, and recently diagnosed atrial flutter started on Xarelto who presented to [facility] with a chief complaint of recurrent abdominal pain and AMS; not associated with palpitations, chest pain, orthopnea, or syncope. He was found to have evidence of gram-negative sepsis. He was also noted to have a small subarachnoid hemorrhage on CT scan. He said he only took 2 doses of the Xarelto after recent discharge. He denied visual changes, slurring of speech, or focal weakness. On my interview with him today he was alert and feeling well. Allergies/Medications Allergies: Coded Allergies: Penicillins (Intermediate, SWELLING 05/16/15) Home Med List: Amlodipine Besylate (Norvasc) 5 MG TABLET 1 TAB PO DAILY HEART (Reported) Aspirin (Children's Aspirin) 81 MG TAB.CHEW 1 TAB PO Q48 HEART HEALTH ( Reported) Atorvastatin Calcium (Lipitor) 20 MG TABLET 1 TAB PO DAILY HLD (Reported) Azilsartan Medoxomil (Edarbi) 40 MG TABLET 1 TAB PO DAILY Blood Pressure ( Reported) Cholecalciferol (Vitamin D3) 1,000 UNIT TABLET 1 TAB PO DAILY VITAMIN SUPPORT (Reported) Cyanocobalamin (Vitamin B-12) 1,000 MCG TABLET 1 TAB PO DAILY Supplement ( Reported) Cyclosporine (Restasis) 1 EACH DROPERETTE 1 GTT OPH BID Eye drops (Reported) Isosorbide Mononitrate (Isosorbide Mononitrate ER) 30 MG TAB.ER.24H 1 TAB PO DAILY CHEST PAIN Magnesium Oxide 400 MG TABLET 1 TAB PO DAILY SUPPLEMENT (Reported) Methylcellulose (Fiber Therapy) 500 MG TABLET 1 TAB PO DAILY SUPPLEMENT ( Reported) Metoprolol Tartrate (Lopressor) 100 MG TABLET 1 TAB PO BID Heart rate [place]-3 Fatty Acids (Fish Oil Concentrate) 1,000 MG CAPSULE 1 CAP PO DAILY SUPPLEMENT (Reported) Omeprazole 40 MG CAPSULE.DR 1 CAP PO DAILY GI (Reported) Rivaroxaban (Xarelto) 20 MG TABLET 1 TAB PO QPM Blood thinner with food Current Medications: Current Medications Sig/Renetta Start time Last Medication Dose Route Stop Time Status Admin Acetaminophen 650 MG Q6P PRN 07/09 0300 AC 07/09 PO 2010 Acetaminophen 1,000 MG Q6P PRN 07/09 0300 AC IV Atorvastatin Calcium 20 MG 1700 07/09 1700 AC 07/09 PO 1853 Ceftazidime 1,000 MG Q8H 07/09 1030 DC 07/10 IV 0214 Ceftriaxone Sodium 1,000 MG DAILY 07/10 1130 AC IV Dextrose/Lactated 1,000 ML Q13H 07/10 1215 AC Ringer's IV Docusate Sodium 100 MG BID 07/09 0900 AC 07/10 PO 0803 Lactated Ringer's 1,000 ML ONCE ONE 07/10 1145 CAN IV 07/11 0104 Lactated Ringer's 75 ML DAILY 07/10 1130 CAN IV 07/11 0901 Magnesium Oxide 400 MG DAILY 07/09 1218 AC 07/10 PO 0803 Metronidazole 500 MG IQ8 07/09 1830 AC 07/10 N/A 1 UNIT IV 0759 Metronidazole 500 MG Q8H 07/09 0500 DC 07/09 N/A 1 UNIT IV 0615 Ondansetron HCl 4 MG Q8P PRN 07/09 0300 AC IV Pantoprazole Sodium 40 MG DAILY 07/09 0900 AC 07/10 IV 0803 Phosphate 250 MG PC AND AT BEDTIME 07/10 0900 AC PO Phosphate 250 MG PC AND AT BEDTIME 07/09 1300 DC 07/10 PO 07/10 0901 0803 Potassium Phosphate 15 mMol ONE ONE 07/10 0845 AC Sodium Chloride 250 ML IV 07/10 1249 Senna/Docusate Sodium 1 TAB AT BEDTIME 07/09 2100 AC 07/09 PO 2109 Sodium Chloride 1,000 ML Q6H 07/09 1300 DC 07/10 IV 0804 Review of Systems Review of Systems: Review of systems as per HPI. The remainder of a 10 point review of systems was reviewed and was otherwise negative. 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 , Age 78; Cause: Throat cancer. FATHER, , Age 82; Cause: S/P mitral valve repair. Psychosocial History Where Do You Live? Home Who Do You Live With? spouse Services at Home: None Primary Language: Occitan Smoking Status: Never Smoked Living Will? no Power of Sea Kayaking Guide/HCP? no Functional Ability ADLs Independent: dressing, eating, toileting, bathing. Ambulation: independent IADLs Independent: shopping, housework, finances, food prep, telephone, transportation , medication admin. Exam & Diagnostic Data Vital Signs and I&O Vital Signs Date Time Temp Pulse Resp B/P B/P Pulse O2 O2 Flow FiO2 Mean Ox Delivery Rate 07/10 0400 93 Room Air Room Air 07/10 0000 93 Room Air Room Air 07/10 0000 98.4 84 30 120/70 93 Room Air Room Air 07/09 2111 100.7 07/09 2010 101.8 07/10 1999 98 Room Air Room Air 07/09 1600 99.9 100 20 134/76 94 Room Air Intake & Output 07/10 1600 07/10 0800 07/10 0000 07/09 1600 07/09 0800 07/09 0000 Intake Total 9601 487 5037 600 Output Total 500 200 600 Balance 562 761 700 600 Intake, IV 9632 483 6130 600 Intake, Oral 240 100 Number 2 0 Bowel Movements Output, Urine 500 200 600 Patient 197 lb 200 lb Weight Weight Bed scale Reported by Patient Measurement Method Physical Exam: General: no apparent distress. Alert. Eyes: No obvious scleral icterus. HEENT: No jugular venous distention or abnormal jugular venous pulsations. Cardiovascular: Normal intensity S1/S2. Regular Respiratory: Lungs clear to auscultation bilaterally. Abdomen: no guarding or rebound tenderness. Musculoskeletal: No clubbing or cyanosis noted Skin: warm Neurologic: No gross focal deficits noted. Labs/Markel Results: Laboratory Tests 07/10 07/09 0453 1015 Chemistry Sodium (137 - 145 mmol/L) 140 Potassium (3.5 - 5.1 mmol/L) 3.9 Chloride (98 - 107 mmol/L) 109 H Carbon Dioxide (22 - 30 mmol/L) 20 L Anion Gap (5 - 16) 11 BUN (9 - 20 mg/dL) 21 H Creatinine (0.7 - 1.2 mg/dL) 1.2 Estimated GFR (>60 ml/min) 59 L Glucose (65 - 99 mg/dL) 84 Calcium (8.4 - 10.2 mg/dL) 9.0 Phosphorus (2.5 - 4.5 mg/dL) 2.1 L Magnesium (1.6 - 2.3 mg/dL) 2.2 Total Bilirubin (0.2 - 1.3 mg/dL) 1.4 H Direct Bilirubin (< 0.4 mg/dL) 0.8 H AST (17 - 59 U/L) 49 ALT (21 - 72 U/L) 65 Alkaline Phosphatase (< 127 U/L) 69 Total Protein (6.3 - 8.2 g/dL) 5.7 L Albumin (3.5 - 5.0 g/dL) 2.9 L Hematology CBC w Diff NO MAN DIFF REQ WBC (4.8 - 10.8 /CUMM) 9.0 RBC (4.70 - 6.10 /CUMM) 4.83 Hgb (14.0 - 18.0 G/DL) 13.9 L Hct (42 - 52 %) 41.4 L MCV (80.0 - 94.0 FL) 85.7 MCH (27.0 - 31.0 PG) 28.7 MCHC (33.0 - 37.0 G/DL) 33.5 RDW (11.5 - 14.5 %) 14.4 Plt Count (130 - 400 /CUMM) 118 L MPV (7.4 - 10.4 FL) 9.1 Gran % (42.2 - 75.2 %) 75.5 H Lymphocytes % (20.5 - 51.1 %) 13.3 L Monocytes % (1.7 - 9.3 %) 9.4 H Eosinophils % (0 - 5 %) 1.6 Basophils % (0.0 - 2.0 %) 0.2 Absolute Granulocytes (1.4 - 6.5 /CUMM) 6.8 H Absolute Lymphocytes (1.2 - 3.4 /CUMM) 1.2 Absolute Monocytes (0.10 - 0.60 /CUMM) 0.8 H Absolute Eosinophils (0.0 - 0.7 /CUMM) 0.1 Absolute Basophils (0.0 - 0.2 /CUMM) 0 Urines Urine Color (YEL,AMB,STR) YEL Urine Clarity (CLEAR) CLEAR Urine pH (5.0 - 8.0) 6.0 Ur Specific [place] (1.001 - 1.035) 1.015 Urine Protein (NEG,<30 MG/DL) TRACE H Urine Ketones (NEG) NEG Urine Nitrite (NEG) NEG Urine Bilirubin (NEG) NEG Urine Urobilinogen (0.1 - 1.0 EU/dl) 1.0 Ur Leukocyte Esterase (NEG) NEG Ur Microscopic SEDIMENT EXAMINED Urine RBC (0 - 5 /HPF) 1-3 Urine WBC (0 - 2 /HPF) RARE Urine Bacteria (NEG/NONE) FEW H Urine Hemoglobin (NEG) TRACE-INTACT H Urine Glucose (N MG/DL) NEG 07/09 07/09 07/09 07/09 0815 0802 0500 0500 Chemistry Sodium (137 - 145 mmol/L) 139 Potassium (3.5 - 5.1 mmol/L) 4.4 Chloride (98 - 107 mmol/L) 106 Carbon Dioxide (22 - 30 mmol/L) 19 L Anion Gap (5 - 16) 14 BUN (9 - 20 mg/dL) 18 Creatinine (0.7 - 1.2 mg/dL) 1.3 H Estimated GFR (>60 ml/min) 54 L Glucose (65 - 99 mg/dL) 86 Lactic Acid (0.7 - 2.1 mmol/L) 1.8 2.2 H Calcium (8.4 - 10.2 mg/dL) 9.3 Phosphorus (2.5 - 4.5 mg/dL) 3.0 Magnesium (1.6 - 2.3 mg/dL) 1.8 Total Bilirubin (0.2 - 1.3 mg/dL) 1.9 H Direct Bilirubin (< 0.4 mg/dL) 0.8 H AST (17 - 59 U/L) 54 ALT (21 - 72 U/L) 56 Alkaline Phosphatase (< 127 U/L) 69 Ammonia (9 - 30 umol/L) < 9 L Albumin (3.5 - 5.0 g/dL) 3.3 L Triglycerides (<150 mg/dL) 84 Cholesterol (< 200 MG/DL) 81 LDL Cholesterol, Calc (65 - 129 mg/dL) 24 L HDL Cholesterol (40 - 60 mg/dL) 41 Cholesterol/HDL Ratio (0.00 - 4.88 %) 2 TSH (0.270 - 4.200 uIU/mL) 0.716 Free T4 (0.78 - 2.44 ng/dL) 1.24 Coagulation PT (9.4 - 12.5 SEC) 16.3 H INR (0.90 - 1.17) 1.49 H APTT (25 - 37 SEC) 32 Hematology CBC w Diff MAN DIFF ORDERED WBC (4.8 - 10.8 /CUMM) 13.8 H RBC (4.70 - 6.10 /CUMM) 4.99 Hgb (14.0 - 18.0 G/DL) 14.2 Hct (42 - 52 %) 43.0 MCV (80.0 - 94.0 FL) 86.2 MCH (27.0 - 31.0 PG) 28.5 MCHC (33.0 - 37.0 G/DL) 33.1 RDW (11.5 - 14.5 %) 14.2 Plt Count (130 - 400 /CUMM) 170 MPV (7.4 - 10.4 FL) 9.0 Gran % (42.2 - 75.2 %) 88.4 H Lymphocytes % (20.5 - 51.1 %) 5.7 L Monocytes % (1.7 - 9.3 %) 5.9 Eosinophils % (0 - 5 %) 0 Basophils % (0.0 - 2.0 %) 0 Absolute Granulocytes (1.4 - 6.5 /CUMM) 12.2 H Segmented Neutrophils (42.2 - 75.2 %) 77 H Band Neutrophils (0.0 - 5.0 %) 12 H Absolute Lymphocytes (1.2 - 3.4 /CUMM) 0.8 L Lymphocytes (20.5 - 51.1 %) 5 L Monocytes (1.7 - 9.3 %) 5 Absolute Monocytes (0.10 - 0.60 /CUMM) 0.8 H Absolute Eosinophils (0.0 - 0.7 /CUMM) 0 Basophils (0.0 - 2.0 %) 1 Absolute Basophils (0.0 - 0.2 /CUMM) 0 Platelet Estimate (ADEQUATE) ADEQUATE Normochromic RBCs VERIFIED Poikilocytosis 1+ Ovalocytes 1+ Other Body Source Fld Total RBCs Counted (%) 100 Toxicology Urine Opiates Screen (>2000 NG/ML) < 100 Methadone Screen (>300 NG/ML) < 40 Barbiturate Screen (>200 NG/ML) < 60 Ur Phencyclidine Scrn (>25 NG/ML) < 6.00 Amphetamines Screen (>1000 NG/ML) < 100 U Benzodiazepines Scrn (>200 NG/ML) < 85 Urine Cocaine Screen (>300 NG/ML) < 50 Urine Cannabis Screen (>50 NG/ML) < 5.00 07/09 07/08 07/08 0145 2227 2220 Chemistry Sodium (137 - 145 mmol/L) 136 L Potassium (3.5 - 5.1 mmol/L) 4.6 Chloride (98 - 107 mmol/L) 102 Carbon Dioxide (22 - 30 mmol/L) 16 L Anion Gap (5 - 16) 17 H BUN (9 - 20 mg/dL) 17 Creatinine (0.7 - 1.2 mg/dL) 1.3 H Estimated GFR (>60 ml/min) 54 L BUN/Creatinine Ratio (7 - 25 %) 13.1 Glucose (65 - 99 mg/dL) 116 H Lactic Acid (0.7 - 2.1 mmol/L) 2.1 3.0 H Calcium (8.4 - 10.2 mg/dL) 10.0 Total Bilirubin (0.2 - 1.3 mg/dL) 2.3 H Direct Bilirubin (< 0.4 mg/dL) 1.1 H AST (17 - 59 U/L) 38 ALT (21 - 72 U/L) 36 Alkaline Phosphatase (< 127 U/L) 89 Troponin I (<0.11 ng/ml) 0.04 Total Protein (6.3 - 8.2 g/dL) 7.5 Albumin (3.5 - 5.0 g/dL) 4.3 Globulin (1.9 - 4.2 gm/dL) 3.2 Albumin/Globulin Ratio (1.1 - 2.2 %) 1.3 Triglycerides (<150 mg/dL) 83 Amylase (30 - 110 U/L) 33 Lipase (23 - 300 U/L) 143 Hematology CBC w Diff NO MAN DIFF REQ WBC (4.8 - 10.8 /CUMM) 11.9 H RBC (4.70 - 6.10 /CUMM) 5.69 Hgb (14.0 - 18.0 G/DL) 16.4 Hct (42 - 52 %) 48.9 MCV (80.0 - 94.0 FL) 86.0 MCH (27.0 - 31.0 PG) 28.9 MCHC (33.0 - 37.0 G/DL) 33.6 RDW (11.5 - 14.5 %) 14.0 Plt Count (130 - 400 /CUMM) 224 MPV (7.4 - 10.4 FL) 9.0 Gran % (42.2 - 75.2 %) 93.1 H Lymphocytes % (20.5 - 51.1 %) 5.4 L Monocytes % (1.7 - 9.3 %) 1.5 L Eosinophils % (0 - 5 %) 0 Basophils % (0.0 - 2.0 %) 0 Absolute Granulocytes (1.4 - 6.5 /CUMM) 11.1 H Absolute Lymphocytes (1.2 - 3.4 /CUMM) 0.6 L Absolute Monocytes (0.10 - 0.60 /CUMM) 0.2 Absolute Eosinophils (0.0 - 0.7 /CUMM) 0 Absolute Basophils (0.0 - 0.2 /CUMM) 0 Toxicology Methadone Screen Cancelled Barbiturate Screen Cancelled Ur Phencyclidine Scrn Cancelled Amphetamines Screen Cancelled U Benzodiazepines Scrn Cancelled Urine Cocaine Screen Cancelled Urine Cannabis Screen Cancelled Serum Alcohol (<10 MG/DL) < 10.0 Diagnostic Data EKG Results Tracing was personally reviewed and shows sinus rhythm at 92 bpm with intermittent PVCs and nonspecific T-wave abnormality CXR Results No CHF Other Results Head CT Trace subarachnoid hemorrhage in the high left frontal lobe. Assessment/Plan Assessment/Plan 1. Abdominal pain with gram-negative sepsis 2. Trace subarachnoid hemorrhage noted on head CT 3. Recently diagnosed atrial flutter started on Xarelto now in normal sinus rhythm 4. History of 4V CABG in 1998 with PCI to the circumflex in 2000 and a known graft occlusions to the circumflex and diagonal 5. History of PVCs with no inducible VT by EP study in 2011 6. History of hypertension and hyperlipidemia Patient is hemodynamically stable and is currently in sinus rhythm with occasional PVCs. Xarelto has been discontinued given the trace subarachnoid hemorrhage noted on CT scan. Follow-up with neurology/neurosurgery consultation. He is also being treated for gram-negative sepsis. No evidence of acute coronary syndrome or CHF. If unable to resume chronic anticoagulation in the future for paroxysmal atrial flutter he may be a candidate for ablation or atrial intervention such as a watchman device in the future. Resume aspirin when cleared by neurology/neurosurgery. Continue on statin therapy. Darrel Smith MD [facility] Consult Acknowledgment - Thank you for your consult request.
--- NOTE | 2017-07-10 13:19 | Patient Discharge Instructions ---
Discharge Instructions General Discharge Information You were seen/treated for: - Gram negative bacteremia likely secondary to bilary infection Watch for these problems: - Chest pain - Shortness of breath - Fever, Chills - Jaundice Special Instructions: Please take all medications as directed. Please follow-up with gastroenterology at [place] and neurosurgery. Diet Continue normal diet: Yes Activity Full Activity/No Limits: Yes Acute Coronary Syndrome Inclusion Criteria At DC or during hospital stay patient has or had the following: ACS DIAGNOSIS No Discharge Core Measures Meds if any: Prescribed or Continued at Discharge Meds if any: NOT Prescribed or Continued at Discharge Congestive Heart Failure Inclusion Criteria At DC or during hospital stay patient has or had the following: CHF DIAGNOSIS No Discharge Core Measures Meds if any: Prescribed or Continued at Discharge Meds if any: NOT Prescribed or Continued at Discharge Cerebrovascular accident Inclusion Criteria At DC or during hospital stay patient has or had the following: CVA/TIA Diagnosis No Discharge Core Measures Meds if any: Prescribed or Continued at Discharge Meds if any: NOT Prescribed or Continued at Discharge Venous thromboembolism Inclusion Criteria VTE Diagnosis No VTE Type NONE VTE Confirmed by (Test) NONE Discharge Core Measures - Per Current guidelines, there needs to be overlap - treatment for the first 5 days of Warfarin therapy. - If discharged on Warfarin prior to 5 days of - overlap therapy, the patient will need to be - assessed for post discharge needs including - *Post discharge parental anticoagulation - *Warfarin and/or parental anticoagulation education - *Follow up date to check INR post discharge At least 5 days overlap therapy as Inpatient No Meds if any: Prescribed or Continued at Discharge Note: Overlap Therapy is Warfarin and Anticoagulant Meds if any: NOT Prescribed or Continued at Discharge
--- NOTE | 2017-07-10 13:33 | Cons- Neurology ---
General Information and HPI Consulting Request Date of Consult: 07/10/17 Requested By: Marcie SALVADOR,Norbert Butt Reason for Consult: CAT scan finding Source of Information: patient, family, old records Exam Limitations: no limitations History of Present Illness: Patient is 72-year-old male with past medical history of diabetes, hypertension, hyperlipidemia, CABG and stent, atrial fibrillation status post ablation, pancreatitis, recent hospitalization on 07/01 for chest pain and a flutter started on Xarelto who presented this admission with confusion and abdominal pain. Patient was brought in by his due to confusion. Patient was alert and oriented during the initial interview. He has been having abdominal pain for the 2 days prior to admission accompanied by nausea. Denies any headaches or photophobia at any point. Denies any neck pain. Abdominal pain is located in the epigastric region and travels down to the umbilicus described as a sore pain. Patient reports that he was initially having 10 out of 10 pain however reports that the pain has now lessened and at time of interview stated he was not in any pain. Patient states that he came to [facility] on 07/07 for this reason and had an abdominal CT showing mild acute on chronic pancreatitis. Today the patient is doing much better and is denying any abdominal pain. Denies any headache. No focal symptoms. Denies hitting his head in any way over the last 2 weeks. He was found to have a questionable tiny amount of blood in the high frontal sulcus. Denies any family history of cerebral aneurysms. Patient was recently hospitalized at [facility] on 07/01 due to chest pain and a flutter. 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 Patient reports that he has not had cardioversion however is scheduled for a nuclear stress test with Dr. Centeno. Patient also reports that he has not had his Xarelto since 07/06 due to abdominal pain and nausea/vomiting. Allergies/Medications Allergies: Coded Allergies: Penicillins (Intermediate, SWELLING 05/16/15) Home Med List: Amlodipine Besylate (Norvasc) 5 MG TABLET 1 TAB PO DAILY HEART (Reported) Aspirin (Children's Aspirin) 81 MG TAB.CHEW 1 TAB PO Q48 HEART HEALTH ( Reported) Atorvastatin Calcium (Lipitor) 20 MG TABLET 1 TAB PO DAILY HLD (Reported) Azilsartan Medoxomil (Edarbi) 40 MG TABLET 1 TAB PO DAILY Blood Pressure ( Reported) Cholecalciferol (Vitamin D3) 1,000 UNIT TABLET 1 TAB PO DAILY VITAMIN SUPPORT (Reported) Cyanocobalamin (Vitamin B-12) 1,000 MCG TABLET 1 TAB PO DAILY Supplement ( Reported) Cyclosporine (Restasis) 1 EACH DROPERETTE 1 GTT OPH BID Eye drops (Reported) Isosorbide Mononitrate (Isosorbide Mononitrate ER) 30 MG TAB.ER.24H 1 TAB PO DAILY CHEST PAIN Magnesium Oxide 400 MG TABLET 1 TAB PO DAILY SUPPLEMENT (Reported) Methylcellulose (Fiber Therapy) 500 MG TABLET 1 TAB PO DAILY SUPPLEMENT ( Reported) Metoprolol Tartrate (Lopressor) 100 MG TABLET 1 TAB PO BID Heart rate Rosepine-3 Fatty Acids (Fish Oil Concentrate) 1,000 MG CAPSULE 1 CAP PO DAILY SUPPLEMENT (Reported) Omeprazole 40 MG CAPSULE.DR 1 CAP PO DAILY GI (Reported) Rivaroxaban (Xarelto) 20 MG TABLET 1 TAB PO QPM Blood thinner with food Current Medications: Current Medications Sig/Renetta Start time Last Medication Dose Route Stop Time Status Admin Acetaminophen 650 MG Q6P PRN 07/09 0300 AC 07/09 PO 2010 Acetaminophen 1,000 MG Q6P PRN 07/09 0300 AC IV Atorvastatin Calcium 20 MG 1700 07/09 1700 AC 07/09 PO 1853 Ceftazidime 1,000 MG Q8H 07/09 1030 DC 07/10 IV 0214 Ceftriaxone Sodium 1,000 MG DAILY 07/10 1130 AC 07/10 IV 1243 Dextrose/Lactated 1,000 ML Q13H 07/10 1215 AC 07/10 Ringer's IV 1236 Docusate Sodium 100 MG BID 07/09 0900 AC 07/10 PO 0803 Lactated Ringer's 1,000 ML ONCE ONE 07/10 1145 CAN IV 07/11 0104 Lactated Ringer's 75 ML DAILY 07/10 1130 CAN IV 07/11 0901 Magnesium Oxide 400 MG DAILY 07/09 1218 AC 07/10 PO 0803 Metronidazole 500 MG IQ8 07/09 1830 AC 07/10 N/A 1 UNIT IV 0759 Metronidazole 500 MG Q8H 07/09 0500 DC 07/09 N/A 1 UNIT IV 0615 Ondansetron HCl 4 MG Q8P PRN 07/09 0300 AC IV Pantoprazole Sodium 40 MG DAILY 07/09 0900 AC 07/10 IV 0803 Phosphate 250 MG PC AND AT BEDTIME 07/10 0900 AC 07/10 PO 1243 Phosphate 250 MG PC AND AT BEDTIME 07/09 1300 DC 07/10 PO 07/10 0901 0803 Potassium Phosphate 15 mMol ONE ONE 07/10 0845 DC 07/10 Sodium Chloride 250 ML IV 07/10 1249 1243 Senna/Docusate Sodium 1 TAB AT BEDTIME 07/09 2100 AC 07/09 PO 2109 Sodium Chloride 1,000 ML Q6H 07/09 1300 DC 07/10 IV 0804 Review of Systems Review of Systems: Negative except for the 10 point complete review of systems. 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 , Age 78; Cause: Throat cancer. FATHER, , Age 82; Cause: S/P mitral valve repair. Psychosocial History Where Do You Live? Home Who Do You Live With? spouse Services at Home: None Primary Language: German Smoking Status: Never Smoked Living Will? no Power of Mergers And Acquisitions Attorney/HCP? no Functional Ability ADLs Independent: dressing, eating, toileting, bathing. Ambulation: independent IADLs Independent: shopping, housework, finances, food prep, telephone, transportation , medication admin. Exam & Diagnostic Data Vital Signs and I&O Vital Signs Date Time Temp Pulse Resp B/P B/P Pulse O2 O2 Flow FiO2 Mean Ox Delivery Rate 07/10 0800 99.0 98 18 140/75 98 Room Air 07/10 0400 93 Room Air Room Air 07/10 0000 93 Room Air Room Air 07/10 0000 98.4 84 30 120/70 93 Room Air Room Air 07/09 2111 100.7 07/09 2009 101.8 07/10 1999 98 Room Air Room Air 07/09 1600 99.9 100 20 134/76 94 Room Air Intake & Output 07/10 1600 07/10 0800 07/10 0000 Intake Total 1062 961 Output Total 500 200 Balance 562 761 Intake, IV 1062 721 Intake, Oral 240 Number 2 0 Bowel Movements Output, Urine 500 200 Physical Exam: General: The patient is in no distress. Pleasant and cooperative. MSE: Alert and oriented 3. Good attention and concentration. Good short-term memory and fund of knowledge reflected through our conversation. Language is fluent with good comprehension and repetition. Cardiovascular: S1 and S2 are normal, regular rate and rhythm, and normal pedal pulses. Vision: Fundoscopic exam does not reveal any abnormalties. Visual lozano are intact. Neurological: Extra ocular movements intact, EDITH, face is symmetric, tongue midline, uvula raises equally in the midline, V1-V3 sensation to touch is intact and equal bilaterallty, sternocleidomastoid and trapezius are strong on both sides, muscles of mastication are strong. No dysarthria noted. Motor exam reveals no abnormality of strength. Power is 5-5 throughout the distribution distally and proximally. Sensory exam did not reveal any deficits to touch, temperature, vibration and proprioception. Reflexes are symmetric bilaterally. Cerebellar exam does not reveal any dysmetria. Rapid alternating movements are intact bilaterally. Gait is steady with normal base. Last 48 Hours of Lab Results: Laboratory Tests 07/10 07/09 0453 1015 Chemistry Sodium (137 - 145 mmol/L) 140 Potassium (3.5 - 5.1 mmol/L) 3.9 Chloride (98 - 107 mmol/L) 109 H Carbon Dioxide (22 - 30 mmol/L) 20 L Anion Gap (5 - 16) 11 BUN (9 - 20 mg/dL) 21 H Creatinine (0.7 - 1.2 mg/dL) 1.2 Estimated GFR (>60 ml/min) 59 L Glucose (65 - 99 mg/dL) 84 Calcium (8.4 - 10.2 mg/dL) 9.0 Phosphorus (2.5 - 4.5 mg/dL) 2.1 L Magnesium (1.6 - 2.3 mg/dL) 2.2 Total Bilirubin (0.2 - 1.3 mg/dL) 1.4 H Direct Bilirubin (< 0.4 mg/dL) 0.8 H AST (17 - 59 U/L) 49 ALT (21 - 72 U/L) 65 Alkaline Phosphatase (< 127 U/L) 69 Total Protein (6.3 - 8.2 g/dL) 5.7 L Albumin (3.5 - 5.0 g/dL) 2.9 L Hematology CBC w Diff NO MAN DIFF REQ WBC (4.8 - 10.8 /CUMM) 9.0 RBC (4.70 - 6.10 /CUMM) 4.83 Hgb (14.0 - 18.0 G/DL) 13.9 L Hct (42 - 52 %) 41.4 L MCV (80.0 - 94.0 FL) 85.7 MCH (27.0 - 31.0 PG) 28.7 MCHC (33.0 - 37.0 G/DL) 33.5 RDW (11.5 - 14.5 %) 14.4 Plt Count (130 - 400 /CUMM) 118 L MPV (7.4 - 10.4 FL) 9.1 Gran % (42.2 - 75.2 %) 75.5 H Lymphocytes % (20.5 - 51.1 %) 13.3 L Monocytes % (1.7 - 9.3 %) 9.4 H Eosinophils % (0 - 5 %) 1.6 Basophils % (0.0 - 2.0 %) 0.2 Absolute Granulocytes (1.4 - 6.5 /CUMM) 6.8 H Absolute Lymphocytes (1.2 - 3.4 /CUMM) 1.2 Absolute Monocytes (0.10 - 0.60 /CUMM) 0.8 H Absolute Eosinophils (0.0 - 0.7 /CUMM) 0.1 Absolute Basophils (0.0 - 0.2 /CUMM) 0 Urines Urine Color (YEL,AMB,STR) YEL Urine Clarity (CLEAR) CLEAR Urine pH (5.0 - 8.0) 6.0 Ur Specific [place] (1.001 - 1.035) 1.015 Urine Protein (NEG,<30 MG/DL) TRACE H Urine Ketones (NEG) NEG Urine Nitrite (NEG) NEG Urine Bilirubin (NEG) NEG Urine Urobilinogen (0.1 - 1.0 EU/dl) 1.0 Ur Leukocyte Esterase (NEG) NEG Ur Microscopic SEDIMENT EXAMINED Urine RBC (0 - 5 /HPF) 1-3 Urine WBC (0 - 2 /HPF) RARE Urine Bacteria (NEG/NONE) FEW H Urine Hemoglobin (NEG) TRACE-INTACT H Urine Glucose (N MG/DL) NEG 07/09 07/09 07/09 07/09 0815 0802 0500 0500 Chemistry Sodium (137 - 145 mmol/L) 139 Potassium (3.5 - 5.1 mmol/L) 4.4 Chloride (98 - 107 mmol/L) 106 Carbon Dioxide (22 - 30 mmol/L) 19 L Anion Gap (5 - 16) 14 BUN (9 - 20 mg/dL) 18 Creatinine (0.7 - 1.2 mg/dL) 1.3 H Estimated GFR (>60 ml/min) 54 L Glucose (65 - 99 mg/dL) 86 Lactic Acid (0.7 - 2.1 mmol/L) 1.8 2.2 H Calcium (8.4 - 10.2 mg/dL) 9.3 Phosphorus (2.5 - 4.5 mg/dL) 3.0 Magnesium (1.6 - 2.3 mg/dL) 1.8 Total Bilirubin (0.2 - 1.3 mg/dL) 1.9 H Direct Bilirubin (< 0.4 mg/dL) 0.8 H AST (17 - 59 U/L) 54 ALT (21 - 72 U/L) 56 Alkaline Phosphatase (< 127 U/L) 69 Ammonia (9 - 30 umol/L) < 9 L Albumin (3.5 - 5.0 g/dL) 3.3 L Triglycerides (<150 mg/dL) 84 Cholesterol (< 200 MG/DL) 81 LDL Cholesterol, Calc (65 - 129 mg/dL) 24 L HDL Cholesterol (40 - 60 mg/dL) 41 Cholesterol/HDL Ratio (0.00 - 4.88 %) 2 TSH (0.270 - 4.200 uIU/mL) 0.716 Free T4 (0.78 - 2.44 ng/dL) 1.24 Coagulation PT (9.4 - 12.5 SEC) 16.3 H INR (0.90 - 1.17) 1.49 H APTT (25 - 37 SEC) 32 Hematology CBC w Diff MAN DIFF ORDERED WBC (4.8 - 10.8 /CUMM) 13.8 H RBC (4.70 - 6.10 /CUMM) 4.99 Hgb (14.0 - 18.0 G/DL) 14.2 Hct (42 - 52 %) 43.0 MCV (80.0 - 94.0 FL) 86.2 MCH (27.0 - 31.0 PG) 28.5 MCHC (33.0 - 37.0 G/DL) 33.1 RDW (11.5 - 14.5 %) 14.2 Plt Count (130 - 400 /CUMM) 170 MPV (7.4 - 10.4 FL) 9.0 Gran % (42.2 - 75.2 %) 88.4 H Lymphocytes % (20.5 - 51.1 %) 5.7 L Monocytes % (1.7 - 9.3 %) 5.9 Eosinophils % (0 - 5 %) 0 Basophils % (0.0 - 2.0 %) 0 Absolute Granulocytes (1.4 - 6.5 /CUMM) 12.2 H Segmented Neutrophils (42.2 - 75.2 %) 77 H Band Neutrophils (0.0 - 5.0 %) 12 H Absolute Lymphocytes (1.2 - 3.4 /CUMM) 0.8 L Lymphocytes (20.5 - 51.1 %) 5 L Monocytes (1.7 - 9.3 %) 5 Absolute Monocytes (0.10 - 0.60 /CUMM) 0.8 H Absolute Eosinophils (0.0 - 0.7 /CUMM) 0 Basophils (0.0 - 2.0 %) 1 Absolute Basophils (0.0 - 0.2 /CUMM) 0 Platelet Estimate (ADEQUATE) ADEQUATE Normochromic RBCs VERIFIED Poikilocytosis 1+ Ovalocytes 1+ Other Body Source Fld Total RBCs Counted (%) 100 Toxicology Urine Opiates Screen (>2000 NG/ML) < 100 Methadone Screen (>300 NG/ML) < 40 Barbiturate Screen (>200 NG/ML) < 60 Ur Phencyclidine Scrn (>25 NG/ML) < 6.00 Amphetamines Screen (>1000 NG/ML) < 100 U Benzodiazepines Scrn (>200 NG/ML) < 85 Urine Cocaine Screen (>300 NG/ML) < 50 Urine Cannabis Screen (>50 NG/ML) < 5.00 07/09 07/08 07/08 0145 2227 2220 Chemistry Sodium (137 - 145 mmol/L) 136 L Potassium (3.5 - 5.1 mmol/L) 4.6 Chloride (98 - 107 mmol/L) 102 Carbon Dioxide (22 - 30 mmol/L) 16 L Anion Gap (5 - 16) 17 H BUN (9 - 20 mg/dL) 17 Creatinine (0.7 - 1.2 mg/dL) 1.3 H Estimated GFR (>60 ml/min) 54 L BUN/Creatinine Ratio (7 - 25 %) 13.1 Glucose (65 - 99 mg/dL) 116 H Lactic Acid (0.7 - 2.1 mmol/L) 2.1 3.0 H Calcium (8.4 - 10.2 mg/dL) 10.0 Total Bilirubin (0.2 - 1.3 mg/dL) 2.3 H Direct Bilirubin (< 0.4 mg/dL) 1.1 H AST (17 - 59 U/L) 38 ALT (21 - 72 U/L) 36 Alkaline Phosphatase (< 127 U/L) 89 Troponin I (<0.11 ng/ml) 0.04 Total Protein (6.3 - 8.2 g/dL) 7.5 Albumin (3.5 - 5.0 g/dL) 4.3 Globulin (1.9 - 4.2 gm/dL) 3.2 Albumin/Globulin Ratio (1.1 - 2.2 %) 1.3 Triglycerides (<150 mg/dL) 83 Amylase (30 - 110 U/L) 33 Lipase (23 - 300 U/L) 143 Hematology CBC w Diff NO MAN DIFF REQ WBC (4.8 - 10.8 /CUMM) 11.9 H RBC (4.70 - 6.10 /CUMM) 5.69 Hgb (14.0 - 18.0 G/DL) 16.4 Hct (42 - 52 %) 48.9 MCV (80.0 - 94.0 FL) 86.0 MCH (27.0 - 31.0 PG) 28.9 MCHC (33.0 - 37.0 G/DL) 33.6 RDW (11.5 - 14.5 %) 14.0 Plt Count (130 - 400 /CUMM) 224 MPV (7.4 - 10.4 FL) 9.0 Gran % (42.2 - 75.2 %) 93.1 H Lymphocytes % (20.5 - 51.1 %) 5.4 L Monocytes % (1.7 - 9.3 %) 1.5 L Eosinophils % (0 - 5 %) 0 Basophils % (0.0 - 2.0 %) 0 Absolute Granulocytes (1.4 - 6.5 /CUMM) 11.1 H Absolute Lymphocytes (1.2 - 3.4 /CUMM) 0.6 L Absolute Monocytes (0.10 - 0.60 /CUMM) 0.2 Absolute Eosinophils (0.0 - 0.7 /CUMM) 0 Absolute Basophils (0.0 - 0.2 /CUMM) 0 Toxicology Methadone Screen Cancelled Barbiturate Screen Cancelled Ur Phencyclidine Scrn Cancelled Amphetamines Screen Cancelled U Benzodiazepines Scrn Cancelled Urine Cocaine Screen Cancelled Urine Cannabis Screen Cancelled Serum Alcohol (<10 MG/DL) < 10.0 Imaging/Other Studies: Minimal and questionable blood within the high left frontal sulcus versus calcification that has been stable over the last few CAT scans. Assessment/Plan Assessment: 72-year-old man with questionable small amount of blood within frontal sulci at the cut off of the skull on imaging that may be artifactual in nature. Although he was on Xarelto he denies hitting his head and any point in time. He also denies any meningeal signs that we would expect with a subarachnoid hemorrhage such as headache and photophobia. There is good reason for his gastrointestinal symptoms. I doubt that this finding is significant or real. However to do do diligence I recommend an MRA of the head to rule out aneurysms. If normal would just observe. Avoid anticoagulation for at least a month. Could use baby aspirin if needed instead. Recommendations: See above. Consult Acknowledgment - Thank you for your consult request.
[2017-07-10 16:00] VITALS: BP 128/60
--- NOTE | 2017-07-10 18:19 | MRI REPORT ---
MRA BRAIN WITHOUT CONTRAST CLINICAL INFORMATION: Subarachnoid hemorrhage. COMPARISON: Head CT 07/09/2017. TECHNIQUE: A [id number] MRA of the [place] of [place] is obtained without contrast. Multiplanar MIP reformats are acquired at the technologist workstation and utilized for image interpretation. FINDINGS: The anterior and posterior intracranial arterial circulations are normal in caliber without significant arterial stenosis without acute arterial occlusion. There is a 2 mm vascular excrescence projecting superiorly from the basal artery tip concerning for an aneurysm and there is a 2 mm infundibulum versus aneurysm at the origin of the left superior cerebellar artery. There is a 3 mm aneurysm projecting superiorly from the right MCA bifurcation. Possible tiny 1 mm aneurysm projecting inferiorly from the left anterior cerebral artery a common junction. No definite additional aneurysms are identified. 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 There is a 3 mm aneurysm projecting superiorly from the right MCA bifurcation. Possible tiny 1 mm aneurysm projecting inferiorly from the left anterior cerebral artery a common junction. All of these aneurysms are located remote from the site of previously seen high left frontal subarachnoid hemorrhage. Findings were discussed with Dr. Abrams at 6:14 PM on 07/10/2017.
--- NOTE | 2017-07-10 18:32 | PN- Gastroenterology ---
Assessment/Plan GI Assessment/Recommendations: ASSESSMENT: 1. Abnormal MRI showing dilatation of both the Pancreatic Duct and the CBD 2. Blood Cultures Positive for GNR -- C&S not back yet 3. Fever -- patient on antibiotics, now afebrile 4. Subarachnoid hemorrhage -- stable RECOMMENDATIONS: 1. Will await results from blood cultures 2. Order serum IgG4 to rule out autoimmune hepatobiliary and pancreatic disease 3. Will review MRI with radiology, not sure that ERCP the ffist step in evaluating this patient's pancreatic and biliary abnormal ductal abnormalities. Patient may benefit from EUS to be followed by ERCP. Fiven that he has known prior chronic pancreatic disease which may require advanced intervention would consider repeat outpatient evaluation at [facility]. 4. Continue abx Of note patient has had a normal IgG4 in October of 2015. He also has had an EUS and ERCP at [place] as follows: 11/16/2015: *EUS per Dr. Canela- FNA of cystic dilitation/side branches of head of pancreas (? if chronic pancreatitis), duod bxs neg, antral bxs HP-neg, *+ Moore's esophagus, indefinite for dysplasia, *FNA of cyst at pancreatic head- low cellularity (? if benign), with *elevated cystic CEA 5,468, c/w mucin, and elevated cystic amylase 38,589, c/w possible pseudocyst vs IPMN, nl ampulla, nl GB, mid CBD 7 mm with sludge, nl main PD with side branches at panc head, 2 intraductal PD stones, no panreatic mass. Subjective Subjective: Patient denies nausea, vomiting or abdominal pain. He is more alert. Blood cultures show gram positive rods, however, C&S is still pending. MRI of the abdomen was done and the results are as follows: FINDINGS: Biliary tract: No definite intrahepatic biliary dilatation is seen. The left lobe ductal system is mildly prominent in size. The common bile duct measures up to 0.9 cm, to the level of the ampulla, without an obstructing lesion demonstrated or evidence for choledocholithiasis. This dilatation appears chronic, dating back to 11/10/2015. Pancreas: In the uncinate process, there is a multiseptated cystic lesion measuring about 2.2 x 1.8 cm. Though difficult to visualize on prior exams, due to the lack of IV contrast, this finding measured about 2.2 x 1.4 cm on exam of 11/10/2015. At the level of the proximal body and head of the pancreas, the pancreatic duct is dilated to 0.6 cm. There is a transition point at the level of the mid pancreatic body, distal to which the duct measures between 0.2 and 0.3 cm to the level the pancreatic tail. This dilatation has been seen on prior exams though not easily demonstrated due to the lack of IV contrast. There is evidence for a 0.3 cm stone in the mid pancreatic body on the recent CT scans. Liver and spleen: No remarkable findings on this noncontrast scan. Adrenal glands and kidneys: Left renal cyst is redemonstrated. No hydronephrosis. The adrenal glands appear intact. Additional findings: No adenopathy is demonstrated. No ascites. No suspicious marrow findings. IMPRESSION: 1. There is extra hepatic biliary ductal dilatation seen to the level of the ampulla without a discrete obstructing lesion. This mild dilatation seen on several previous CT scans and may relate to an underlying distal stenosis. No obstructing lesion is seen. No evidence for choledocholithiasis. 2. There is dilatation to the distal pancreatic duct within the head and proximal body. There is a transition point in the mid body distal to which the duct is of normal caliber. The etiology of this finding is not clear as one would expect the distal duct to be dilated secondary to an obstructing stone or stricture. The pancreatic ductal dilatation is of some chronicity, demonstrated on 11/10/2015. There may be a distal stenosis. 3. 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 The absence of significant change from 11/10/2015 suggests an indolent/benign IPMN. This should be followed with MR, ideally with IV contrast. Objective Vital Signs and I&Os Vital Signs Date Time Temp Pulse Resp B/P B/P Pulse O2 O2 Flow FiO2 Mean Ox Delivery Rate 07/10 1600 99.0 96 20 128/60 96 Room Air 07/10 0800 99.0 98 18 140/75 98 Room Air 07/10 0400 93 Room Air Room Air 07/10 0000 93 Room Air Room Air 07/10 0000 98.4 84 30 120/70 93 Room Air Room Air 07/09 2111 100.7 07/09 2010 101.8 07/09 2000 98 Room Air Room Air Intake & Output 07/10 1600 07/10 0400 07/09 1600 07/09 0400 07/08 1600 07/08 0400 Intake Total 2512 961 1900 Output Total 800 200 600 Balance 9010 806 3532 Intake, IV 1891 265 7019 Intake, Oral 600 240 100 Number 3 0 Bowel Movements Output, Urine 800 200 600 Patient 197 lb 200 lb Weight Weight Bed scale Reported by Patient Measurement Method Physical Exam General Appearance: well developed/nourished, no apparent distress Head: atraumatic, normal appearance Respiratory: normal breath sounds, lungs clear Cardiovascular: regular rate/rhythm Abdomen: normal bowel sounds, soft, non-tender Neurologic/Psychiatric: awake, alert, oriented x 3 Skin: intact, warm/dry Current Medications: Current Medications Sig/Renetta Start time Last Medication Dose Route Stop Time Status Admin Acetaminophen 650 MG Q6P PRN 07/09 0300 AC 07/09 PO 2009 Acetaminophen 1,000 MG Q6P PRN 07/09 0300 AC IV Atorvastatin Calcium 20 MG 1700 07/09 1700 AC 07/10 PO 1606 Ceftazidime 1,000 MG Q8H 07/09 1030 DC 07/10 IV 0214 Ceftriaxone Sodium 1,000 MG DAILY 07/10 1130 07/10 IV 1243 Dextrose/Lactated 1,000 ML Q13H 07/10 1215 AC 07/10 Ringer's IV 1236 Docusate Sodium 100 MG BID 07/09 0900 AC 07/10 PO 0803 Lactated Ringer's 1,000 ML ONCE ONE 07/10 1145 CAN IV 07/11 0104 Lactated Ringer's 75 ML DAILY 07/10 1130 CAN IV 07/11 0901 Magnesium Oxide 400 MG DAILY 07/09 1218 AC 07/10 PO 0803 Metronidazole 500 MG IQ8 07/09 1830 AC 07/10 N/A 1 UNIT IV 1606 Ondansetron HCl 4 MG Q8P PRN 07/09 0300 AC IV Pantoprazole Sodium 40 MG DAILY 07/09 0900 AC 07/10 IV 0803 Phosphate 250 MG PC AND AT BEDTIME 07/10 0900 AC 07/10 PO 1607 Phosphate 250 MG PC AND AT BEDTIME 07/09 1300 DC 07/10 PO 07/10 0901 0803 Potassium Phosphate 15 mMol ONE ONE 07/10 0845 DC 07/10 Sodium Chloride 250 ML IV 07/10 1249 1243 Senna/Docusate Sodium 1 TAB AT BEDTIME 07/09 2100 AC 07/09 PO 2109 Sodium Chloride 1,000 ML Q6H 07/09 1300 DC 07/10 IV 0804 Results Pertinent Lab Results: Laboratory Tests 07/10 07/09 0453 1015 Chemistry Sodium (137 - 145 mmol/L) 140 Potassium (3.5 - 5.1 mmol/L) 3.9 Chloride (98 - 107 mmol/L) 109 H Carbon Dioxide (22 - 30 mmol/L) 20 L Anion Gap (5 - 16) 11 BUN (9 - 20 mg/dL) 21 H Creatinine (0.7 - 1.2 mg/dL) 1.2 Estimated GFR (>60 ml/min) 59 L Glucose (65 - 99 mg/dL) 84 Calcium (8.4 - 10.2 mg/dL) 9.0 Phosphorus (2.5 - 4.5 mg/dL) 2.1 L Magnesium (1.6 - 2.3 mg/dL) 2.2 Total Bilirubin (0.2 - 1.3 mg/dL) 1.4 H Direct Bilirubin (< 0.4 mg/dL) 0.8 H AST (17 - 59 U/L) 49 ALT (21 - 72 U/L) 65 Alkaline Phosphatase (< 127 U/L) 69 Total Protein (6.3 - 8.2 g/dL) 5.7 L Albumin (3.5 - 5.0 g/dL) 2.9 L Hematology CBC w Diff NO MAN DIFF REQ WBC (4.8 - 10.8 /CUMM) 9.0 RBC (4.70 - 6.10 /CUMM) 4.83 Hgb (14.0 - 18.0 G/DL) 13.9 L Hct (42 - 52 %) 41.4 L MCV (80.0 - 94.0 FL) 85.7 MCH (27.0 - 31.0 PG) 28.7 MCHC (33.0 - 37.0 G/DL) 33.5 RDW (11.5 - 14.5 %) 14.4 Plt Count (130 - 400 /CUMM) 118 L MPV (7.4 - 10.4 FL) 9.1 Gran % (42.2 - 75.2 %) 75.5 H Lymphocytes % (20.5 - 51.1 %) 13.3 L Monocytes % (1.7 - 9.3 %) 9.4 H Eosinophils % (0 - 5 %) 1.6 Basophils % (0.0 - 2.0 %) 0.2 Absolute Granulocytes (1.4 - 6.5 /CUMM) 6.8 H Absolute Lymphocytes (1.2 - 3.4 /CUMM) 1.2 Absolute Monocytes (0.10 - 0.60 /CUMM) 0.8 H Absolute Eosinophils (0.0 - 0.7 /CUMM) 0.1 Absolute Basophils (0.0 - 0.2 /CUMM) 0 Urines Urine Color (YEL,AMB,STR) YEL Urine Clarity (CLEAR) CLEAR Urine pH (5.0 - 8.0) 6.0 Ur Specific [place] (1.001 - 1.035) 1.015 Urine Protein (NEG,<30 MG/DL) TRACE H Urine Ketones (NEG) NEG Urine Nitrite (NEG) NEG Urine Bilirubin (NEG) NEG Urine Urobilinogen (0.1 - 1.0 EU/dl) 1.0 Ur Leukocyte Esterase (NEG) NEG Ur Microscopic SEDIMENT EXAMINED Urine RBC (0 - 5 /HPF) 1-3 Urine WBC (0 - 2 /HPF) RARE Urine Bacteria (NEG/NONE) FEW H Urine Hemoglobin (NEG) TRACE-INTACT H Urine Glucose (N MG/DL) NEG 07/09 07/09 07/09 07/09 0815 0802 0500 0500 Chemistry Sodium (137 - 145 mmol/L) 139 Potassium (3.5 - 5.1 mmol/L) 4.4 Chloride (98 - 107 mmol/L) 106 Carbon Dioxide (22 - 30 mmol/L) 19 L Anion Gap (5 - 16) 14 BUN (9 - 20 mg/dL) 18 Creatinine (0.7 - 1.2 mg/dL) 1.3 H Estimated GFR (>60 ml/min) 54 L Glucose (65 - 99 mg/dL) 86 Lactic Acid (0.7 - 2.1 mmol/L) 1.8 2.2 H Calcium (8.4 - 10.2 mg/dL) 9.3 Phosphorus (2.5 - 4.5 mg/dL) 3.0 Magnesium (1.6 - 2.3 mg/dL) 1.8 Total Bilirubin (0.2 - 1.3 mg/dL) 1.9 H Direct Bilirubin (< 0.4 mg/dL) 0.8 H AST (17 - 59 U/L) 54 ALT (21 - 72 U/L) 56 Alkaline Phosphatase (< 127 U/L) 69 Ammonia (9 - 30 umol/L) < 9 L Albumin (3.5 - 5.0 g/dL) 3.3 L Triglycerides (<150 mg/dL) 84 Cholesterol (< 200 MG/DL) 81 LDL Cholesterol, Calc (65 - 129 mg/dL) 24 L HDL Cholesterol (40 - 60 mg/dL) 41 Cholesterol/HDL Ratio (0.00 - 4.88 %) 2 TSH (0.270 - 4.200 uIU/mL) 0.716 Free T4 (0.78 - 2.44 ng/dL) 1.24 Coagulation PT (9.4 - 12.5 SEC) 16.3 H INR (0.90 - 1.17) 1.49 H APTT (25 - 37 SEC) 32 Hematology CBC w Diff MAN DIFF ORDERED WBC (4.8 - 10.8 /CUMM) 13.8 H RBC (4.70 - 6.10 /CUMM) 4.99 Hgb (14.0 - 18.0 G/DL) 14.2 Hct (42 - 52 %) 43.0 MCV (80.0 - 94.0 FL) 86.2 MCH (27.0 - 31.0 PG) 28.5 MCHC (33.0 - 37.0 G/DL) 33.1 RDW (11.5 - 14.5 %) 14.2 Plt Count (130 - 400 /CUMM) 170 MPV (7.4 - 10.4 FL) 9.0 Gran % (42.2 - 75.2 %) 88.4 H Lymphocytes % (20.5 - 51.1 %) 5.7 L Monocytes % (1.7 - 9.3 %) 5.9 Eosinophils % (0 - 5 %) 0 Basophils % (0.0 - 2.0 %) 0 Absolute Granulocytes (1.4 - 6.5 /CUMM) 12.2 H Segmented Neutrophils (42.2 - 75.2 %) 77 H Band Neutrophils (0.0 - 5.0 %) 12 H Absolute Lymphocytes (1.2 - 3.4 /CUMM) 0.8 L Lymphocytes (20.5 - 51.1 %) 5 L Monocytes (1.7 - 9.3 %) 5 Absolute Monocytes (0.10 - 0.60 /CUMM) 0.8 H Absolute Eosinophils (0.0 - 0.7 /CUMM) 0 Basophils (0.0 - 2.0 %) 1 Absolute Basophils (0.0 - 0.2 /CUMM) 0 Platelet Estimate (ADEQUATE) ADEQUATE Normochromic RBCs VERIFIED Poikilocytosis 1+ Ovalocytes 1+ Other Body Source Fld Total RBCs Counted (%) 100 Toxicology Urine Opiates Screen (>2000 NG/ML) < 100 Methadone Screen (>300 NG/ML) < 40 Barbiturate Screen (>200 NG/ML) < 60 Ur Phencyclidine Scrn (>25 NG/ML) < 6.00 Amphetamines Screen (>1000 NG/ML) < 100 U Benzodiazepines Scrn (>200 NG/ML) < 85 Urine Cocaine Screen (>300 NG/ML) < 50 Urine Cannabis Screen (>50 NG/ML) < 5.00 07/09 07/08 07/08 0145 2227 2220 Chemistry Sodium (137 - 145 mmol/L) 136 L Potassium (3.5 - 5.1 mmol/L) 4.6 Chloride (98 - 107 mmol/L) 102 Carbon Dioxide (22 - 30 mmol/L) 16 L Anion Gap (5 - 16) 17 H BUN (9 - 20 mg/dL) 17 Creatinine (0.7 - 1.2 mg/dL) 1.3 H Estimated GFR (>60 ml/min) 54 L BUN/Creatinine Ratio (7 - 25 %) 13.1 Glucose (65 - 99 mg/dL) 116 H Lactic Acid (0.7 - 2.1 mmol/L) 2.1 3.0 H Calcium (8.4 - 10.2 mg/dL) 10.0 Total Bilirubin (0.2 - 1.3 mg/dL) 2.3 H Direct Bilirubin (< 0.4 mg/dL) 1.1 H AST (17 - 59 U/L) 38 ALT (21 - 72 U/L) 36 Alkaline Phosphatase (< 127 U/L) 89 Troponin I (<0.11 ng/ml) 0.04 Total Protein (6.3 - 8.2 g/dL) 7.5 Albumin (3.5 - 5.0 g/dL) 4.3 Globulin (1.9 - 4.2 gm/dL) 3.2 Albumin/Globulin Ratio (1.1 - 2.2 %) 1.3 Triglycerides (<150 mg/dL) 83 Amylase (30 - 110 U/L) 33 Lipase (23 - 300 U/L) 143 Hematology CBC w Diff NO MAN DIFF REQ WBC (4.8 - 10.8 /CUMM) 11.9 H RBC (4.70 - 6.10 /CUMM) 5.69 Hgb (14.0 - 18.0 G/DL) 16.4 Hct (42 - 52 %) 48.9 MCV (80.0 - 94.0 FL) 86.0 MCH (27.0 - 31.0 PG) 28.9 MCHC (33.0 - 37.0 G/DL) 33.6 RDW (11.5 - 14.5 %) 14.0 Plt Count (130 - 400 /CUMM) 224 MPV (7.4 - 10.4 FL) 9.0 Gran % (42.2 - 75.2 %) 93.1 H Lymphocytes % (20.5 - 51.1 %) 5.4 L Monocytes % (1.7 - 9.3 %) 1.5 L Eosinophils % (0 - 5 %) 0 Basophils % (0.0 - 2.0 %) 0 Absolute Granulocytes (1.4 - 6.5 /CUMM) 11.1 H Absolute Lymphocytes (1.2 - 3.4 /CUMM) 0.6 L Absolute Monocytes (0.10 - 0.60 /CUMM) 0.2 Absolute Eosinophils (0.0 - 0.7 /CUMM) 0 Absolute Basophils (0.0 - 0.2 /CUMM) 0 Toxicology Methadone Screen Cancelled Barbiturate Screen Cancelled Ur Phencyclidine Scrn Cancelled Amphetamines Screen Cancelled U Benzodiazepines Scrn Cancelled Urine Cocaine Screen Cancelled Urine Cannabis Screen Cancelled Serum Alcohol (<10 MG/DL) < 10.0 07/08 1015 Toxicology Methadone Screen Cancelled Barbiturate Screen Cancelled Ur Phencyclidine Scrn Cancelled Amphetamines Screen Cancelled U Benzodiazepines Scrn Cancelled Urine Cocaine Screen Cancelled Urine Cannabis Screen Cancelled Imaging/Other Studies: MRI Head and Neck: IMPRESSION: 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 There is a 3 mm aneurysm projecting superiorly from the right MCA bifurcation. Possible tiny 1 mm aneurysm projecting inferiorly from the left anterior cerebral artery a common junction. All of these aneurysms are located remote from the site of previously seen high left frontal subarachnoid hemorrhage.
[2017-07-10 18:53] VITALS: BP 140/70
--- NOTE | 2017-07-10 19:47 | Event Note ---
Event Note Event Note: Patient was found to have trace subarachnoid hemorrhage at the time of admission. Repeat CAT scan was done with no worsening of hemorrhage. He was evaluated by the neurologist this morning. Recommended to get MRA of the head to rule out any aneurysms. Patient was on Xaralto for atrial flutter, denies head trauma. Patient denies any headache. 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 There is a 3 mm aneurysm projecting superiorly from the right MCA bifurcation. Possible tiny 1 mm aneurysm projecting inferiorly from the left anterior cerebral artery a common junction. All of these aneurysms are located remote from the site of previously seen high left frontal subarachnoid hemorrhage. Discussed with Dr. Patel neurologist share[employer] consultant about MRA head findings. Advised outpatient follow-up with jennyfer Jennings neurosurgeon at [place]. No further recommendations for now
[2017-07-11] VITALS: BP 114/68
[2017-07-11 06:24] LABS: ABSOLUTE BASOPHIL COUNT 0 /CUMM (0.0-0.2); ABSOLUTE EOSINOPHIL COUNT 0.1 /CUMM (0.0-0.7); ABSOLUTE GRANULOCYTE CT 5.5 /CUMM (1.4-6.5); ABSOLUTE MONOCYTE COUNT 0.6 /CUMM (0.10-0.60); BASOPHIL % 0.3 % (0.0-2.0); EOSINOPHIL % 1.3 % (0-5); GRANULOCYTE % 75.9 % (42.2-75.2); HEMATOCRIT 42.5 % (42-52); MEAN CORPUSCULAR HGB 28.3 PG (27.0-31.0); MEAN CORPUSCULAR VOLUME 85.9 FL (80.0-94.0); MEAN PLATELET VOLUME 9.7 FL (7.4-10.4); PLATELET COUNT 114 /CUMM (130-400); RBC DISTRIBUTION WIDTH 14.2 % (11.5-14.5); RED BLOOD CELL CT 4.95 /CUMM (4.70-6.10); WHITE BLOOD CELL COUNT 7.2 /CUMM (4.8-10.8)
[2017-07-11 08:00] VITALS: BP 140/70
--- NOTE | 2017-07-11 08:11 | PN- Resident CRCU ---
Venancio SALVADOR,[facility] 07/11/17 0811: Subjective HPI/CRCU Issues: # ESBL E.Coli sepsis - likely due to pancreaticobiliary etiology # Subarachnoid hemorrhage # Hx of HTN and HLD # Hx of CAD s/p CABG # Hx of A. fib S/P ablation, recently diagnosed A flutter on Xarelto 24 Hour Events: Patient resting comfortably, denies any complaints. Tmax of 103 yesterday evening, deneis any chills. Final Blood Cx this am growing E.Coli ESBL positive. Objective Vital Signs & I&O Last 8 Hrs of Vitals and I&O: Intake & Output 07/11 1600 Intake Total Output Total Balance Patient 196 lb Weight Exam General Appearance: well developed/nourished, no apparent distress, alert, awake , comfortable Head: atraumatic, normal appearance Respiratory: normal breath sounds, chest non-tender, lungs clear Cardiovascular: regular rate/rhythm Gastrointestinal: normal bowel sounds, distention, tenderness (mild) Extremities: normal inspection, no edema Cranial Nerves: normal hearing, normal speech, PERRL Current Medications: Current Medications Sig/Renetta Start time Last Medication Dose Route Stop Time Status Admin Acetaminophen 1,000 MG .STK-MED ONE 07/10 1842 DC IV 07/10 1843 Acetaminophen 650 MG Q6P PRN 07/09 0300 AC 07/09 PO 2010 Acetaminophen 1,000 MG Q6P PRN 07/09 0300 AC IV Atorvastatin Calcium 20 MG 1700 07/09 1700 AC 07/10 PO 1606 Ceftazidime 1,000 MG Q8H 07/09 1030 DC 07/10 IV 0214 Ceftriaxone Sodium 1,000 MG DAILY 07/10 1130 DC 07/11 IV 0838 Dextrose/Lactated 1,000 ML Q13H 07/10 1215 07/11 Ringer's IV 0626 Docusate Sodium 100 MG BID 07/09 0900 AC 07/11 PO 0835 Lactated Ringer's 1,000 ML ONCE ONE 07/10 1145 CAN IV 07/11 0104 Lactated Ringer's 75 ML DAILY 07/10 1130 CAN IV 07/11 0901 Magnesium Oxide 400 MG DAILY 07/09 1218 AC 07/11 PO 0835 Meropenem 1 GM IQ8 07/11 1600 UNVr IV Metronidazole 500 MG IQ8 07/09 1830 DC 07/11 N/A 1 UNIT IV 0838 Ondansetron HCl 4 MG Q8P PRN 07/09 0300 AC IV Pantoprazole Sodium 40 MG DAILY 07/09 0900 AC 07/11 IV 0835 Phosphate 250 MG PC AND AT BEDTIME 07/11 0900 CAN PO 07/12 1301 Phosphate 250 MG PC AND AT BEDTIME 07/10 0900 AC 07/11 PO 0836 Potassium Phosphate 15 mMol ONE ONE 07/11 0845 AC Dextrose/Water 250 ML IV 07/11 1249 Potassium Phosphate 15 mMol ONE ONE 07/10 0845 DC 07/10 Sodium Chloride 250 ML IV 07/10 1249 1243 Senna/Docusate Sodium 1 TAB AT BEDTIME 07/09 2100 AC 07/10 PO 2144 Sodium Chloride 1,000 ML Q6H 07/09 1300 DC 07/10 IV 0804 Impression/Plan Impression/Problem List Impression: Patient is 72-year-old male with past medical history of diabetes, hypertension, hyperlipidemia, CABG and stent, atrial fibrillation status post ablation, pancreatitis, recent hospitalization on 07/01 for chest pain and a flutter started on Xarelto presenting this admission with confusion and abdominal pain. Vitals at the time of admission were : T max 100.5, pulse 113, RR 14, blood pressure 95/58 on arrival improved to 108/55, saturating well on room air. On exam: A O 3, cooperative, no acute distress, neck supple, JVD normal, no lymphadenopathy, mucosa moist, complete neurological examination unremarkable, no dependent edema, no obvious skin rashes or inflammation CVS: S1-S2, RRR. RS: Clear to auscultate bilaterally. Abdomen: Soft, ND, bowel sounds present, very mild right upper quadrant tenderness, no Sierra's sign, no guarding or rigidity. CT head without contrast: Trace subarachnoid hemorrhage in the high left frontal lobe. Patient will be admitted to the ICU due to subarachnoid hemorrhage requiring close monitoring: # ESBL E.Coli sepsis - likely due to pancreaticobiliary etiology # Subarachnoid hemorrhage # Hx of HTN and HLD # Hx of CAD s/p CABG # Hx of A. fib S/P ablation, recently diagnosed A flutter on Xarelto Respiratory; no, stable still at this point Infectious; 1. ESBL E.Coli sepsis; Patient presented with abdominal pain, nausea and vomiting. Also had an elevated lactic acid. Amylase and Lipase normal. Total bilirubin at the time of admission was 2.3 trending down to 1.9--> 1.4 with direct bilirubin of 0.8. Lactic acid trended down. Right upper quadrant ultrasound showed Borderline thickening of the gallbladder wall and dilatation of the common bile duct up to approximately 1 cm, unchanged when compared to without any definite choledocholithiasis. He also had an MRCP done showing extra hepatic biliary ductal dilatation seen to the level of the ampulla without a discrete obstructing lesion. no Sierra's sign, no guarding or rigidity. Blood Cx growing GNR, ?? GI source. UA negative, Urine Cx showing no growth after 1 day. - Patient started on full liquids, advance as tolerated. - Discontinue IV fluid hydration. - Final blood cultures growing ESBL E.Coli sensitive to getamicin, bactrim and timentin only. Will discontinue flagyl and ceftriaxone and start the patient on meropenem per Dr. Jeorme. - Zofran as needed for nausea and vomiting - Appreciate GI recommendations; repeat outpatient evaluation at [facility] given prior chronic pancreatic disease. - Repeat CBC and CMP in am. Cardiology; 1. Recently diagnosed A.Flutter on Xrelto; Patient is scheduled for an echocardiogram and a stress test as an outpatient with Dr. Dowling next week, 1 softball umpire notified of the patient's hospitalization. - Continue to hold Xarelto because of the subarachnoid hemorrhage. 2. Hx of Hypertention; - Continue home medications 3. History of hyperlipidemia - Continue atorvastatin 20 mg daily 4. History of CAD status post CABG - Continue home medications except aspirin(subarachnoid hemorrhage). Heme; 1. Leukocytosis; Resolved. - Continue to monitor. Metabolic 1. Electrolyte abnormalities; - Continue to monitor and replete accordingly. Alimentary; As above Neuro; 1. SAH; Patient was brought in because of new onset confusion per the . Head CT was done showing small left frontal SAH. Patient denies any trauma or fall. Also has not been taking his Xarelto for the past 2 days because of nausea and vomiting. Repeat CAT scan was done on 07/09/2017 which showed minimal decrease in the size of the subarachnoid hemorrhage. - Neurochecks every 1 to 2 hours - Monitor vitals closely. - Neurosurgery consult - Spoke with Dr. Maria over the phone, states she went over the CAT scan results patient does not need any surgical intervention at this time, recommends neurology evaluation. neurology recommendations. - MRA done on 07/10 showing multiple aneurysm; further follow up as an outpatient. Will resume aspirin (Confirmed with Dr. Patel in person) but continue to hold Xarelto. - Appreciate Neurology recommendation. DVT prophylaxis: Alps only due to subarachnoid hemorrhage Diet: Nothing by mouth. Code: Full code Downgraded to gen Med. Problem List: 1. Cholestasis 2. Subarachnoid bleed 3. Sepsis Pain Ratin Pain Location: Abdomen Pain Goal: Remain pain free Pain Plan: Pain Pathway Tomorrow's Labs & Rationales: CBC ICU Bundle Plan DVT/Prophylaxis: mechanical Eric Riley MD 07/11/17 1022: Attending MD Review Statement Attending Sign Off Attending Cosign Statement: I have: examined this patient, reviewed INFUSDal EMR data, personally reviewd images, discussd w/resident/PA/METAL BONDING WORKER, discussed mgmt plan w/baylee, discussed mgmt plan w/CM, discussed mgmt plan w/pt, agreed w/resident/PA/METAL BONDING WORKER, amended to note. Other Findings: Impression 72 year old man * left frontal subarachnoid hemorrhage - 2mm basal artery aneurysm, 2mm infundibulm vs aneurysm at L SCA, 3mm aneurysm R MCA, possible 1mm L JENAE * acute on chronic pancreatitis * ESBL - E.Coli - blood cultures - likely biliary/GI source * Juan M was on Xarelto * Thrombocytopenia - likely sepsis related Plan -Consultants * Gastroenterology * Cardiology * Infectious Disease * Neurology -Abx * Meropenem 1gm iv q8h -Xarelto held -Watchman device is considered by cardiology -monitor platelets Current hospitalization is necessary due to IV antibiotics and awaiting further recommendations from GI including any possible procedures Gen Med hold DVT prophylaxis - ALPS
--- NOTE | 2017-07-11 11:33 | PN- Infect Dx ---
Subjective Subjective: T max 89 F previous day. No new c/o; denies abd pain, n, vomiting. Currently afebrile. Review of Systems Comments: 12 points reviewed as noted, otherwise negative. Objective Last 24 Hrs of Vital Signs/I&O Vital Signs Date Time Temp Pulse Resp B/P B/P Pulse O2 O2 Flow FiO2 Mean Ox Delivery Rate 07/11 0800 99.8 82 20 140/70 96 Room Air 07/11 0000 98.7 82 14 114/68 98 Room Air 07/10 1853 103.0 80 18 140/70 07/10 1600 99.0 96 20 128/60 96 Room Air Intake & Output 07/11 1600 07/11 0800 07/11 0000 Intake Total 760 600 Output Total 1100 850 Balance -340 -250 Intake, IV 640 Intake, Oral 120 600 Output, Urine 1100 850 Patient 196 lb Weight Physical Exam Other Physical Findings: He appears comfortable in no acute distress Lungs are clear Heart irregular rhythm with no murmur Abdomen is obese, soft, tender on palpation over the mid abdomen Extremities no cyanosis, clubbing or edema Results Last 24 Hours of Lab Results: Laboratory Tests 07/11 07/11 0540 0500 Chemistry Sodium (137 - 145 mmol/L) 140 Potassium (3.5 - 5.1 mmol/L) 3.9 Chloride (98 - 107 mmol/L) 109 H Carbon Dioxide (22 - 30 mmol/L) 18 L Anion Gap (5 - 16) 13 BUN (9 - 20 mg/dL) 14 Creatinine (0.7 - 1.2 mg/dL) 0.9 Estimated GFR (>60 ml/min) > 60 Glucose (65 - 99 mg/dL) 255 H Calcium (8.4 - 10.2 mg/dL) 8.7 Phosphorus (2.5 - 4.5 mg/dL) 2.4 L Magnesium (1.6 - 2.3 mg/dL) 2.0 Total Bilirubin (0.2 - 1.3 mg/dL) 0.9 AST (17 - 59 U/L) 36 ALT (21 - 72 U/L) 53 Albumin (3.5 - 5.0 g/dL) 2.6 L Hematology CBC w Diff NO MAN DIFF REQ WBC (4.8 - 10.8 /CUMM) 7.2 RBC (4.70 - 6.10 /CUMM) 4.95 Hgb (14.0 - 18.0 G/DL) 14.0 Hct (42 - 52 %) 42.5 MCV (80.0 - 94.0 FL) 85.9 MCH (27.0 - 31.0 PG) 28.3 MCHC (33.0 - 37.0 G/DL) 33.0 RDW (11.5 - 14.5 %) 14.2 Plt Count (130 - 400 /CUMM) 114 L MPV (7.4 - 10.4 FL) 9.7 Gran % (42.2 - 75.2 %) 75.9 H Lymphocytes % (20.5 - 51.1 %) 13.9 L Monocytes % (1.7 - 9.3 %) 8.6 Eosinophils % (0 - 5 %) 1.3 Basophils % (0.0 - 2.0 %) 0.3 Absolute Granulocytes (1.4 - 6.5 /CUMM) 5.5 Absolute Lymphocytes (1.2 - 3.4 /CUMM) 1.0 L Absolute Monocytes (0.10 - 0.60 /CUMM) 0.6 Absolute Eosinophils (0.0 - 0.7 /CUMM) 0.1 Absolute Basophils (0.0 - 0.2 /CUMM) 0 Immunology JULIET Titer Pending Anti-Nuclear Antibody Pending Last 24 Hours of Markel Results: Last 24 Hours of Markel Results: Blood cultures 2 July 08 positive for probable E. coli ESBL Recent Imaging Studies: Recent Imaging Studies: CT of the head July 09 reveals a minimal decrease in the trace subarachnoid hemorrhage within the high left frontal sulcus Assessment/Plan ID Impression: #Fever # ESBL E.Coli Bacteremia # Mild pancreatitis, cholestasis, uspicion of CBD stone, questionable ascending cholangitis given # Leukocytosis # Subarachnoid hemorrhage # Hx of HTN and HLD # Hx of CAD s/p CABG # Hx of A. fib S/P ablation, recently diagnosed A flutter on Xarelto Suggestion: Febrile w/ decreased abdominal pain and tenderness and normal white blood cell count, though he remains febrile, on Ceftazidime and Flagyl, Day 3 of treatment for E. coli sepsis, most likely secondary to a biliary/pancreatic process, given his history of chronic pancreatitis and his MRCP findings. Suggestion: 1. F/U GI recom, including possible ERCP 2. Discontinue Ceftriaxone/Flagyl. 3. Start Meropenem 1 gm q 8 h. 4. Repeat BC x 2 07/12.
--- NOTE | 2017-07-11 12:23 | PN- Gastroenterology ---
Assessment/Plan GI Assessment/Recommendations: ASSESSMENT: 1. E. Coli ESBL Sepsis -- Antibiotics per ID 2. Abnormal MRI Abdomen -- Dilatation of the Pancreatic and Common Bile Duct. ?IPMN 3. Subarachnoid Hemorrhage 4. Multiple Aneurysms 5. History of Pancreatitis RECOMMENDATIONS: 1. Treat Sepsis 2. Patient has had prior work up including EUS and ERCP at [facility] with Dr. Canela. Patient will need to be seen again at [facility] for complicated pancreatic and hepatobiliary disease. May require pancreatic ductal stent placement which can be done as an outpatient and which should not be done until sepsis fully treated. Would make sure follow up is scheduled prior to patient's discharge. 3. Would order JULIET. Patient had a previously negative Serum IgG4. However, one explanation for complex disease including multiple aneurysms as well as recurrent pancreatitis might be a systemic vasculitis. 4. GI will sign off for now as we have nothing to offer and patient is clinically improved. Please do not hesitate to contact us as the need arises. Subjective Subjective: Patient is doing much better. More alert. No abdominal pain, fever, shaking chills. Blood cultures positive for E. Coli ESBL. Objective Vital Signs and I&Os Vital Signs Date Time Temp Pulse Resp B/P B/P Pulse O2 O2 Flow FiO2 Mean Ox Delivery Rate 07/11 0800 99.8 82 20 140/70 96 Room Air 07/11 0000 98.7 82 14 114/68 98 Room Air 07/10 1853 103.0 80 18 140/70 07/10 1600 99.0 96 20 128/60 96 Room Air Intake & Output 07/11 1600 07/11 0400 07/10 1600 07/10 0400 07/09 1600 07/09 0400 Intake Total 267 911 7039 961 1900 Output Total 1100 850 800 200 600 Balance -340 -250 6909 018 2599 Intake, IV 640 2843 941 7368 Intake, Oral 120 600 600 240 100 Number 3 0 Bowel Movements Output, Urine 1100 850 800 200 600 Patient 196 lb 197 lb 200 lb Weight Weight Bed scale Reported by Patient Measurement Method Physical Exam General Appearance: well developed/nourished, no apparent distress Respiratory: lungs clear Cardiovascular: regular rate/rhythm Abdomen: normal bowel sounds, soft, non-tender Neurologic/Psychiatric: awake, alert, oriented x 3 Current Medications: Current Medications Sig/Renetta Start time Last Medication Dose Route Stop Time Status Admin Acetaminophen 1,000 MG .STK-MED ONE 07/10 1842 DC IV 07/10 1843 Acetaminophen 650 MG Q6P PRN 07/09 0300 AC 07/09 PO 2010 Acetaminophen 1,000 MG Q6P PRN 07/09 0300 AC IV Aspirin 81 MG Q48 07/11 1100 AC PO Atorvastatin Calcium 20 MG 1700 07/09 1700 AC 07/10 PO 1606 Ceftriaxone Sodium 1,000 MG DAILY 07/10 1130 DC 07/11 IV 0838 Dextrose/Lactated 1,000 ML Q13H 07/10 1215 DC 07/11 Ringer's IV 0626 Docusate Sodium 100 MG BID 07/09 0900 AC 07/11 PO 0835 Magnesium Oxide 400 MG DAILY 07/09 1218 AC 07/11 PO 0835 Meropenem 1 GM Q8H 07/11 1000 AC 07/11 IV 1030 Metronidazole 500 MG IQ8 07/09 1830 DC 07/11 N/A 1 UNIT IV 0838 Ondansetron HCl 4 MG Q8P PRN 07/09 0300 AC IV Pantoprazole Sodium 40 MG DAILY 07/09 0900 AC 07/11 IV 0835 Phosphate 250 MG PC AND AT BEDTIME 07/11 0900 CAN PO 07/12 1301 Phosphate 250 MG PC AND AT BEDTIME 07/10 0900 AC 07/11 PO 0836 Potassium Phosphate 15 mMol ONE ONE 07/11 0845 AC 07/11 Dextrose/Water 250 ML IV 07/11 1249 1029 Potassium Phosphate 15 mMol ONE ONE 07/10 0845 DC 07/10 Sodium Chloride 250 ML IV 07/10 1249 1243 Senna/Docusate Sodium 1 TAB AT BEDTIME 07/09 2100 AC 07/10 PO 2144 Results Pertinent Lab Results: Laboratory Tests 07/11 07/11 0540 0500 Chemistry Sodium (137 - 145 mmol/L) 140 Potassium (3.5 - 5.1 mmol/L) 3.9 Chloride (98 - 107 mmol/L) 109 H Carbon Dioxide (22 - 30 mmol/L) 18 L Anion Gap (5 - 16) 13 BUN (9 - 20 mg/dL) 14 Creatinine (0.7 - 1.2 mg/dL) 0.9 Estimated GFR (>60 ml/min) > 60 Glucose (65 - 99 mg/dL) 255 H Calcium (8.4 - 10.2 mg/dL) 8.7 Phosphorus (2.5 - 4.5 mg/dL) 2.4 L Magnesium (1.6 - 2.3 mg/dL) 2.0 Total Bilirubin (0.2 - 1.3 mg/dL) 0.9 AST (17 - 59 U/L) 36 ALT (21 - 72 U/L) 53 Albumin (3.5 - 5.0 g/dL) 2.6 L Hematology CBC w Diff NO MAN DIFF REQ WBC (4.8 - 10.8 /CUMM) 7.2 RBC (4.70 - 6.10 /CUMM) 4.95 Hgb (14.0 - 18.0 G/DL) 14.0 Hct (42 - 52 %) 42.5 MCV (80.0 - 94.0 FL) 85.9 MCH (27.0 - 31.0 PG) 28.3 MCHC (33.0 - 37.0 G/DL) 33.0 RDW (11.5 - 14.5 %) 14.2 Plt Count (130 - 400 /CUMM) 114 L MPV (7.4 - 10.4 FL) 9.7 Gran % (42.2 - 75.2 %) 75.9 H Lymphocytes % (20.5 - 51.1 %) 13.9 L Monocytes % (1.7 - 9.3 %) 8.6 Eosinophils % (0 - 5 %) 1.3 Basophils % (0.0 - 2.0 %) 0.3 Absolute Granulocytes (1.4 - 6.5 /CUMM) 5.5 Absolute Lymphocytes (1.2 - 3.4 /CUMM) 1.0 L Absolute Monocytes (0.10 - 0.60 /CUMM) 0.6 Absolute Eosinophils (0.0 - 0.7 /CUMM) 0.1 Absolute Basophils (0.0 - 0.2 /CUMM) 0 Immunology JULIET Titer Pending Anti-Nuclear Antibody Pending 07/10 07/09 0453 1015 Chemistry Sodium (137 - 145 mmol/L) 140 Potassium (3.5 - 5.1 mmol/L) 3.9 Chloride (98 - 107 mmol/L) 109 H Carbon Dioxide (22 - 30 mmol/L) 20 L Anion Gap (5 - 16) 11 BUN (9 - 20 mg/dL) 21 H Creatinine (0.7 - 1.2 mg/dL) 1.2 Estimated GFR (>60 ml/min) 59 L Glucose (65 - 99 mg/dL) 84 Calcium (8.4 - 10.2 mg/dL) 9.0 Phosphorus (2.5 - 4.5 mg/dL) 2.1 L Magnesium (1.6 - 2.3 mg/dL) 2.2 Total Bilirubin (0.2 - 1.3 mg/dL) 1.4 H Direct Bilirubin (< 0.4 mg/dL) 0.8 H AST (17 - 59 U/L) 49 ALT (21 - 72 U/L) 65 Alkaline Phosphatase (< 127 U/L) 69 Total Protein (6.3 - 8.2 g/dL) 5.7 L Albumin (3.5 - 5.0 g/dL) 2.9 L Hematology CBC w Diff NO MAN DIFF REQ WBC (4.8 - 10.8 /CUMM) 9.0 RBC (4.70 - 6.10 /CUMM) 4.83 Hgb (14.0 - 18.0 G/DL) 13.9 L Hct (42 - 52 %) 41.4 L MCV (80.0 - 94.0 FL) 85.7 MCH (27.0 - 31.0 PG) 28.7 MCHC (33.0 - 37.0 G/DL) 33.5 RDW (11.5 - 14.5 %) 14.4 Plt Count (130 - 400 /CUMM) 118 L MPV (7.4 - 10.4 FL) 9.1 Gran % (42.2 - 75.2 %) 75.5 H Lymphocytes % (20.5 - 51.1 %) 13.3 L Monocytes % (1.7 - 9.3 %) 9.4 H Eosinophils % (0 - 5 %) 1.6 Basophils % (0.0 - 2.0 %) 0.2 Absolute Granulocytes (1.4 - 6.5 /CUMM) 6.8 H Absolute Lymphocytes (1.2 - 3.4 /CUMM) 1.2 Absolute Monocytes (0.10 - 0.60 /CUMM) 0.8 H Absolute Eosinophils (0.0 - 0.7 /CUMM) 0.1 Absolute Basophils (0.0 - 0.2 /CUMM) 0 Immunology IgG Total Pending IgG1 Pending IgG2 Pending IgG3 Pending IgG4 Pending Urines Urine Color (YEL,AMB,STR) YEL Urine Clarity (CLEAR) CLEAR Urine pH (5.0 - 8.0) 6.0 Ur Specific [place] (1.001 - 1.035) 1.015 Urine Protein (NEG,<30 MG/DL) TRACE H Urine Ketones (NEG) NEG Urine Nitrite (NEG) NEG Urine Bilirubin (NEG) NEG Urine Urobilinogen (0.1 - 1.0 EU/dl) 1.0 Ur Leukocyte Esterase (NEG) NEG Ur Microscopic SEDIMENT EXAMINED Urine RBC (0 - 5 /HPF) 1-3 Urine WBC (0 - 2 /HPF) RARE Urine Bacteria (NEG/NONE) FEW H Urine Hemoglobin (NEG) TRACE-INTACT H Urine Glucose (N MG/DL) NEG 07/09 07/09 07/09 07/09 0815 0802 0500 0500 Chemistry Sodium (137 - 145 mmol/L) 139 Potassium (3.5 - 5.1 mmol/L) 4.4 Chloride (98 - 107 mmol/L) 106 Carbon Dioxide (22 - 30 mmol/L) 19 L Anion Gap (5 - 16) 14 BUN (9 - 20 mg/dL) 18 Creatinine (0.7 - 1.2 mg/dL) 1.3 H Estimated GFR (>60 ml/min) 54 L Glucose (65 - 99 mg/dL) 86 Lactic Acid (0.7 - 2.1 mmol/L) 1.8 2.2 H Calcium (8.4 - 10.2 mg/dL) 9.3 Phosphorus (2.5 - 4.5 mg/dL) 3.0 Magnesium (1.6 - 2.3 mg/dL) 1.8 Total Bilirubin (0.2 - 1.3 mg/dL) 1.9 H Direct Bilirubin (< 0.4 mg/dL) 0.8 H AST (17 - 59 U/L) 54 ALT (21 - 72 U/L) 56 Alkaline Phosphatase (< 127 U/L) 69 Ammonia (9 - 30 umol/L) < 9 L Albumin (3.5 - 5.0 g/dL) 3.3 L Triglycerides (<150 mg/dL) 84 Cholesterol (< 200 MG/DL) 81 LDL Cholesterol, Calc (65 - 129 mg/dL) 24 L HDL Cholesterol (40 - 60 mg/dL) 41 Cholesterol/HDL Ratio (0.00 - 4.88 %) 2 TSH (0.270 - 4.200 uIU/mL) 0.716 Free T4 (0.78 - 2.44 ng/dL) 1.24 Coagulation PT (9.4 - 12.5 SEC) 16.3 H INR (0.90 - 1.17) 1.49 H APTT (25 - 37 SEC) 32 Hematology CBC w Diff MAN DIFF ORDERED WBC (4.8 - 10.8 /CUMM) 13.8 H RBC (4.70 - 6.10 /CUMM) 4.99 Hgb (14.0 - 18.0 G/DL) 14.2 Hct (42 - 52 %) 43.0 MCV (80.0 - 94.0 FL) 86.2 MCH (27.0 - 31.0 PG) 28.5 MCHC (33.0 - 37.0 G/DL) 33.1 RDW (11.5 - 14.5 %) 14.2 Plt Count (130 - 400 /CUMM) 170 MPV (7.4 - 10.4 FL) 9.0 Gran % (42.2 - 75.2 %) 88.4 H Lymphocytes % (20.5 - 51.1 %) 5.7 L Monocytes % (1.7 - 9.3 %) 5.9 Eosinophils % (0 - 5 %) 0 Basophils % (0.0 - 2.0 %) 0 Absolute Granulocytes (1.4 - 6.5 /CUMM) 12.2 H Segmented Neutrophils (42.2 - 75.2 %) 77 H Band Neutrophils (0.0 - 5.0 %) 12 H Absolute Lymphocytes (1.2 - 3.4 /CUMM) 0.8 L Lymphocytes (20.5 - 51.1 %) 5 L Monocytes (1.7 - 9.3 %) 5 Absolute Monocytes (0.10 - 0.60 /CUMM) 0.8 H Absolute Eosinophils (0.0 - 0.7 /CUMM) 0 Basophils (0.0 - 2.0 %) 1 Absolute Basophils (0.0 - 0.2 /CUMM) 0 Platelet Estimate (ADEQUATE) ADEQUATE Normochromic RBCs VERIFIED Poikilocytosis 1+ Ovalocytes 1+ Other Body Source Fld Total RBCs Counted (%) 100 Toxicology Urine Opiates Screen (>2000 NG/ML) < 100 Methadone Screen (>300 NG/ML) < 40 Barbiturate Screen (>200 NG/ML) < 60 Ur Phencyclidine Scrn (>25 NG/ML) < 6.00 Amphetamines Screen (>1000 NG/ML) < 100 U Benzodiazepines Scrn (>200 NG/ML) < 85 Urine Cocaine Screen (>300 NG/ML) < 50 Urine Cannabis Screen (>50 NG/ML) < 5.00 07/09 07/08 07/08 0145 2227 2220 Chemistry Sodium (137 - 145 mmol/L) 136 L Potassium (3.5 - 5.1 mmol/L) 4.6 Chloride (98 - 107 mmol/L) 102 Carbon Dioxide (22 - 30 mmol/L) 16 L Anion Gap (5 - 16) 17 H BUN (9 - 20 mg/dL) 17 Creatinine (0.7 - 1.2 mg/dL) 1.3 H Estimated GFR (>60 ml/min) 54 L BUN/Creatinine Ratio (7 - 25 %) 13.1 Glucose (65 - 99 mg/dL) 116 H Lactic Acid (0.7 - 2.1 mmol/L) 2.1 3.0 H Calcium (8.4 - 10.2 mg/dL) 10.0 Total Bilirubin (0.2 - 1.3 mg/dL) 2.3 H Direct Bilirubin (< 0.4 mg/dL) 1.1 H AST (17 - 59 U/L) 38 ALT (21 - 72 U/L) 36 Alkaline Phosphatase (< 127 U/L) 89 Troponin I (<0.11 ng/ml) 0.04 Total Protein (6.3 - 8.2 g/dL) 7.5 Albumin (3.5 - 5.0 g/dL) 4.3 Globulin (1.9 - 4.2 gm/dL) 3.2 Albumin/Globulin Ratio (1.1 - 2.2 %) 1.3 Triglycerides (<150 mg/dL) 83 Amylase (30 - 110 U/L) 33 Lipase (23 - 300 U/L) 143 Hematology CBC w Diff NO MAN DIFF REQ WBC (4.8 - 10.8 /CUMM) 11.9 H RBC (4.70 - 6.10 /CUMM) 5.69 Hgb (14.0 - 18.0 G/DL) 16.4 Hct (42 - 52 %) 48.9 MCV (80.0 - 94.0 FL) 86.0 MCH (27.0 - 31.0 PG) 28.9 MCHC (33.0 - 37.0 G/DL) 33.6 RDW (11.5 - 14.5 %) 14.0 Plt Count (130 - 400 /CUMM) 224 MPV (7.4 - 10.4 FL) 9.0 Gran % (42.2 - 75.2 %) 93.1 H Lymphocytes % (20.5 - 51.1 %) 5.4 L Monocytes % (1.7 - 9.3 %) 1.5 L Eosinophils % (0 - 5 %) 0 Basophils % (0.0 - 2.0 %) 0 Absolute Granulocytes (1.4 - 6.5 /CUMM) 11.1 H Absolute Lymphocytes (1.2 - 3.4 /CUMM) 0.6 L Absolute Monocytes (0.10 - 0.60 /CUMM) 0.2 Absolute Eosinophils (0.0 - 0.7 /CUMM) 0 Absolute Basophils (0.0 - 0.2 /CUMM) 0 Toxicology Methadone Screen Cancelled Barbiturate Screen Cancelled Ur Phencyclidine Scrn Cancelled Amphetamines Screen Cancelled U Benzodiazepines Scrn Cancelled Urine Cocaine Screen Cancelled Urine Cannabis Screen Cancelled Serum Alcohol (<10 MG/DL) < 10.0
--- NOTE | 2017-07-11 12:40 | PN- Neurology ---
Subjective Subjective: MRA completed. 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 No hemosiderin in their vacinity. Review of Systems: no change Objective Vital Signs and I&Os Vital Signs Date Time Temp Pulse Resp B/P B/P Pulse O2 O2 Flow FiO2 Mean Ox Delivery Rate 07/11 0800 99.8 82 20 140/70 96 Room Air 07/11 0000 98.7 82 14 114/68 98 Room Air 07/10 1853 103.0 80 18 140/70 07/10 1600 99.0 96 20 128/60 96 Room Air Intake & Output 07/11 1600 07/11 0800 07/11 0000 07/10 1600 07/10 0800 07/10 0000 Intake Total 558 414 6904 1062 961 Output Total 1100 850 300 500 200 Balance -340 -250 1150 562 761 Intake, IV 606 862 0630 721 Intake, Oral 120 600 600 240 Number 1 2 0 Bowel Movements Output, Urine 1100 850 300 500 200 Patient 196 lb Weight Physical Exam: Alert and oriented. Out of bed. EOMI, EDITH , face symemtric Full strength Current Medications: Current Medications Sig/Renetta Start time Last Medication Dose Route Stop Time Status Admin Acetaminophen 1,000 MG .STK-MED ONE 07/10 1842 DC IV 07/10 1843 Acetaminophen 650 MG Q6P PRN 07/09 0300 AC 07/09 PO 2009 Acetaminophen 1,000 MG Q6P PRN 07/09 0300 AC IV Aspirin 81 MG Q48 07/11 1100 AC PO Atorvastatin Calcium 20 MG 1700 07/09 1700 AC 07/10 PO 1606 Ceftriaxone Sodium 1,000 MG DAILY 07/10 1130 DC 07/11 IV 0838 Dextrose/Lactated 1,000 ML Q13H 07/10 1215 DC 07/11 Ringer's IV 0626 Docusate Sodium 100 MG BID 07/09 0900 AC 07/11 PO 0835 Magnesium Oxide 400 MG DAILY 07/09 1218 AC 07/11 PO 0835 Meropenem 1 GM Q8H 07/11 1000 AC 07/11 IV 1030 Metronidazole 500 MG IQ8 07/09 1830 DC 07/11 N/A 1 UNIT IV 0838 Ondansetron HCl 4 MG Q8P PRN 07/09 0300 AC IV Pantoprazole Sodium 40 MG DAILY 07/09 0900 AC 07/11 IV 0835 Phosphate 250 MG PC AND AT BEDTIME 07/11 0900 CAN PO 07/12 1301 Phosphate 250 MG PC AND AT BEDTIME 07/10 0900 AC 07/11 PO 0836 Potassium Phosphate 15 mMol ONE ONE 07/11 0845 AC 07/11 Dextrose/Water 250 ML IV 07/11 1249 1029 Potassium Phosphate 15 mMol ONE ONE 07/10 0845 DC 07/10 Sodium Chloride 250 ML IV 07/10 1249 1243 Senna/Docusate Sodium 1 TAB AT BEDTIME 07/09 2100 AC 07/10 PO 2144 Results Last 24 Hours of Lab Results: Laboratory Tests 07/11 07/11 0540 0500 Chemistry Sodium (137 - 145 mmol/L) 140 Potassium (3.5 - 5.1 mmol/L) 3.9 Chloride (98 - 107 mmol/L) 109 H Carbon Dioxide (22 - 30 mmol/L) 18 L Anion Gap (5 - 16) 13 BUN (9 - 20 mg/dL) 14 Creatinine (0.7 - 1.2 mg/dL) 0.9 Estimated GFR (>60 ml/min) > 60 Glucose (65 - 99 mg/dL) 255 H Calcium (8.4 - 10.2 mg/dL) 8.7 Phosphorus (2.5 - 4.5 mg/dL) 2.4 L Magnesium (1.6 - 2.3 mg/dL) 2.0 Total Bilirubin (0.2 - 1.3 mg/dL) 0.9 AST (17 - 59 U/L) 36 ALT (21 - 72 U/L) 53 Albumin (3.5 - 5.0 g/dL) 2.6 L Hematology CBC w Diff NO MAN DIFF REQ WBC (4.8 - 10.8 /CUMM) 7.2 RBC (4.70 - 6.10 /CUMM) 4.95 Hgb (14.0 - 18.0 G/DL) 14.0 Hct (42 - 52 %) 42.5 MCV (80.0 - 94.0 FL) 85.9 MCH (27.0 - 31.0 PG) 28.3 MCHC (33.0 - 37.0 G/DL) 33.0 RDW (11.5 - 14.5 %) 14.2 Plt Count (130 - 400 /CUMM) 114 L MPV (7.4 - 10.4 FL) 9.7 Gran % (42.2 - 75.2 %) 75.9 H Lymphocytes % (20.5 - 51.1 %) 13.9 L Monocytes % (1.7 - 9.3 %) 8.6 Eosinophils % (0 - 5 %) 1.3 Basophils % (0.0 - 2.0 %) 0.3 Absolute Granulocytes (1.4 - 6.5 /CUMM) 5.5 Absolute Lymphocytes (1.2 - 3.4 /CUMM) 1.0 L Absolute Monocytes (0.10 - 0.60 /CUMM) 0.6 Absolute Eosinophils (0.0 - 0.7 /CUMM) 0.1 Absolute Basophils (0.0 - 0.2 /CUMM) 0 Immunology JULIET Titer Pending Anti-Nuclear Antibody Pending Recent Imaging Studies: see subjective part Assessment/Plan Assessment: 72 year old with incidental finding of hemosiderin deposition in one of the left frontal sulci, and furhter finding of multiple olvera aneurysms that are quite tiny. At a size up to 3mm aneurysms are very unlikely to be a rupture risk, however, in the case the presence of the hemosiderin is curious and concerning. Plan: Recommend seeing Dr. Antonio CHRISTY after discharge within the month to assess if any intervention is needs. Avoid all anti-platelet meds or any other meds that have such effects such as SNRI/SSRI/Fish oil and anti-coagulatns. No need for further studies. Neurology signing off.
--- NOTE | 2017-07-11 12:47 | Event Note ---
Event Note Event Note: As per Dr. Patel, who discussed w/ Dr. Craft that ASA can be restarted.
--- NOTE | 2017-07-11 15:31 | Event Note ---
Event Note Event Note: Per Neurology note we should hold any antiplatelet or anticoagulant therapy but afterwards discussed in person with Dr. Patel regarding continuing baby aspirin, and given pt's extensive cardiac Hx he was okay with resuming the aspirin but will continue to hold Xarelto.
[2017-07-11 16:00] VITALS: BP 140/76
--- NOTE | 2017-07-11 18:09 | Event Note ---
Event Note Event Note: Spoke with radiology ragarding the tagged RBC scan, which can not be done today because no nuclear techs are available today. The morning team will have to Call in the morning again (ext [phone]) to see if it can be done tomorrow. Also patient was empirically started on Ciprofloxacin and Flagyl per dr. donis. Patient has an allergy to Keflex but pt is unable to provide and Hx and family does not know what kind of allergic reaction she had in the past to Keflex. She also has an allergy to Levaquin but after reviewing dr. Diaz notes and also confirmed with Pharmacy she did recieve ciprofloxacin in mar 2017 for more than a week without any adverse effects.
[2017-07-11 18:35] VITALS: BP 102/60
[2017-07-11 22:27] VITALS: BP 140/60
[2017-07-12 06:23] VITALS: BP 122/70
[2017-07-12 08:52] LABS: ABSOLUTE BASOPHIL COUNT 0 /CUMM (0.0-0.2); ABSOLUTE EOSINOPHIL COUNT 0.1 /CUMM (0.0-0.7); ABSOLUTE GRANULOCYTE CT 3.8 /CUMM (1.4-6.5); ABSOLUTE LYMPH COUNT 1.5 /CUMM (1.2-3.4); BASOPHIL % 0.4 % (0.0-2.0); EOSINOPHIL % 1.5 % (0-5); HEMATOCRIT 39.8 % (42-52); MEAN CORPUSCULAR HGB 28.7 PG (27.0-31.0); MEAN CORPUSCULAR HGB CONC 33.4 G/DL (33.0-37.0); MEAN CORPUSCULAR VOLUME 85.9 FL (80.0-94.0); MEAN PLATELET VOLUME 10.3 FL (7.4-10.4); PLATELET COUNT 127 /CUMM (130-400); RBC DISTRIBUTION WIDTH 14.9 % (11.5-14.5); RED BLOOD CELL CT 4.63 /CUMM (4.70-6.10); WHITE BLOOD CELL COUNT 6.5 /CUMM (4.8-10.8)
--- NOTE | 2017-07-12 09:21 | PN- Housestaff ---
See Addendum Subjective Follow-up For: ESBL bacteremia, subarachnoid hemorrhage Subjective: No overnight events. The patient does not have headache or abdominal pain. He feels like he is improving. No other complaints. Review of Systems Constitutional: Reports: no symptoms. EENTM: Reports: no symptoms. Cardiovascular: Reports: no symptoms. Respiratory: Reports: no symptoms. Gastrointestinal: Reports: no symptoms. Genitourinary: Reports: no symptoms. Musculoskeletal: Reports: no symptoms. Skin: Reports: no symptoms. Neurological/Psychological: Reports: no symptoms. Hematologic/Endocrine: Reports: no symptoms. Immunologic/Allergic: Reports: no symptoms. Objective Last 24 Hrs of Vital Signs/I&O Vital Signs Date Time Temp Pulse Resp B/P B/P Pulse O2 O2 Flow FiO2 Mean Ox Delivery Rate 07/12 0623 97.3 66 20 122/70 95 Room Air 07/11 2227 98.3 91 20 140/60 94 Room Air 07/11 1835 98.2 100 20 102/60 94 Room Air 07/11 1600 99.4 88 20 140/76 96 Room Air Intake & Output 07/12 1600 07/12 0800 07/12 0000 Intake Total 0 200 Output Total 300 Balance 0 -100 Intake, Oral 0 200 Output, Urine 300 Physical Exam General Appearance: Alert, Oriented X3, Cooperative, No Acute Distress Cardiovascular: Regular Rate, Normal S1, Normal S2 Lungs: Clear to Auscultation Abdomen: Normal Bowel Sounds, Soft, No Tenderness Extremities: No Edema, Normal Pulses, No Tenderness/Swelling Current Medications: Current Medications Sig/Renetta Start time Last Medication Dose Route Stop Time Status Admin Acetaminophen 650 MG Q6P PRN 07/09 0300 AC 07/09 PO 2010 Acetaminophen 1,000 MG Q6P PRN 07/09 0300 AC IV Aspirin 81 MG Q48 07/11 1300 AC 07/11 PO 1327 Aspirin 81 MG Q48 07/11 1100 DC PO Atorvastatin Calcium 20 MG 1700 07/09 1700 AC 07/11 PO 1612 Ceftriaxone Sodium 1,000 MG DAILY 07/10 1130 DC 07/11 IV 0838 Dextrose/Lactated 1,000 ML Q13H 07/10 1215 DC 07/11 Ringer's IV 0626 Docusate Sodium 100 MG BID 07/09 0900 AC 07/12 PO 0848 Magnesium Oxide 400 MG DAILY 07/09 1218 AC 07/12 PO 0848 Melatonin 3 MG ONCE ONE 07/12 0130 DC 07/12 PO 07/12 0131 0126 Meropenem 1 GM Q8H 07/11 1000 AC 07/12 IV 0900 Metronidazole 500 MG IQ8 07/09 1830 DC 07/11 N/A 1 UNIT IV 0838 Ondansetron HCl 4 MG Q8P PRN 07/09 0300 AC IV Pantoprazole Sodium 40 MG DAILY 07/09 0900 AC 07/12 IV 0849 Phosphate 250 MG PC AND AT BEDTIME 07/10 0900 AC 07/12 PO 0849 Potassium Phosphate 15 mMol ONE ONE 07/11 0845 DC 07/11 Dextrose/Water 250 ML IV 07/11 1249 1029 Senna/Docusate Sodium 1 TAB AT BEDTIME 07/09 2100 AC 07/11 PO 2051 Last 24 Hrs of Lab/Markel Results Last 24 Hrs of Labs/Mics: Laboratory Tests 07/12/17 0655: Anion Gap 12, Estimated GFR > 60, BUN/Creatinine Ratio 16.0, Phosphorus 3.8, Magnesium 2.0, CBC w Diff NO MAN DIFF REQ, RBC 4.63 L, MCV 85.9, MCH 28.7, MCHC 33.4, RDW 14.9 H, MPV 10.3, Gran % 59.0, Lymphocytes % 23.7, Monocytes % 15.4 H, Eosinophils % 1.5, Basophils % 0.4, Absolute Granulocytes 3.8, Absolute Lymphocytes 1.5, Absolute Monocytes 1.0 H, Absolute Eosinophils 0.1, Absolute Basophils 0 07/12/17 0500: Sodium Cancelled, Potassium Cancelled, Chloride Cancelled, Carbon Dioxide Cancelled, Anion Gap Cancelled, BUN Cancelled, Creatinine Cancelled, Glucose Cancelled, Calcium Cancelled, Phosphorus Cancelled, Magnesium Cancelled, Total Bilirubin Cancelled, AST Cancelled, ALT Cancelled, Albumin Cancelled Microbiology 07/12 0500 BLOOD: Blood Culture - COLB 07/12 0500 BLOOD: Blood Culture - COLB 07/11 1455 BLOOD: Blood Culture - RECD 07/11 1450 BLOOD: Blood Culture - RECD Assessment/Plan Assessment: Patient is 72-year-old male with past medical history of diabetes, hypertension, hyperlipidemia, CABG and stent, atrial fibrillation status post ablation, pancreatitis, recent hospitalization on 07/01 for chest pain and a flutter started on Xarelto presenting this admission with confusion and abdominal pain. Vitals at the time of admission were : T max 100.5, pulse 113, RR 14, blood pressure 95/58 on arrival improved to 108/55, saturating well on room air. On exam: A O 3, cooperative, no acute distress, neck supple, JVD normal, no lymphadenopathy, mucosa moist, complete neurological examination unremarkable, no dependent edema, no obvious skin rashes or inflammation CVS: S1-S2, RRR. RS: Clear to auscultate bilaterally. Abdomen: Soft, ND, bowel sounds present, very mild right upper quadrant tenderness, no Sierra's sign, no guarding or rigidity. CT head without contrast: Trace subarachnoid hemorrhage in the high left frontal lobe. Patient will be admitted to the ICU due to subarachnoid hemorrhage requiring close monitoring: # ESBL E.Coli sepsis - likely due to pancreaticobiliary etiology # Subarachnoid hemorrhage # Hx of HTN and HLD # Hx of CAD s/p CABG # Hx of A. fib S/P ablation, recently diagnosed A flutter on Xarelto Respiratory; no, stable still at this point Infectious; 1. ESBL E.Coli sepsis; Patient presented with abdominal pain, nausea and vomiting. Also had an elevated lactic acid. Amylase and Lipase normal. Total bilirubin at the time of admission was 2.3 trending down to 1.9--> 1.4 with direct bilirubin of 0.8. Lactic acid trended down. Right upper quadrant ultrasound showed Borderline thickening of the gallbladder wall and dilatation of the common bile duct up to approximately 1 cm, unchanged when compared to without any definite choledocholithiasis. He also had an MRCP done showing extra hepatic biliary ductal dilatation seen to the level of the ampulla without a discrete obstructing lesion. no Sierra's sign, no guarding or rigidity. Blood Cx growing GNR, ?? GI source. UA negative, Urine Cx showing no growth after 1 day. - Patient diet advanced to a heart healthy today - Final blood cultures growing ESBL E.Coli sensitive to getamicin, bactrim and timentin only. Will discontinue flagyl and ceftriaxone and start the patient on meropenem per Dr. Jerome. - Zofran as needed for nausea and vomiting - Appreciate GI recommendations; repeat outpatient evaluation at [facility] given prior chronic pancreatic disease. - Repeat CBC and CMP in am. Cardiology; 1. Recently diagnosed A.Flutter on Xrelto; Patient is scheduled for an echocardiogram and a stress test as an outpatient with Dr. Dowling next week, 1 full stack python developer notified of the patient's hospitalization. - Continue to hold Xarelto because of the subarachnoid hemorrhage. 2. Hx of Hypertention; - Continue home medications 3. History of hyperlipidemia - Continue atorvastatin 20 mg daily 4. History of CAD status post CABG - Continue home medications except aspirin(subarachnoid hemorrhage). Heme; 1. Leukocytosis; Resolved. - Continue to monitor. Metabolic 1. Electrolyte abnormalities; - Continue to monitor and replete accordingly. Alimentary; As above Neuro; 1. SAH; Patient was brought in because of new onset confusion per the . Head CT was done showing small left frontal SAH. Patient denies any trauma or fall. Also has not been taking his Xarelto for the past 2 days because of nausea and vomiting. Repeat CAT scan was done on 07/09/2017 which showed minimal decrease in the size of the subarachnoid hemorrhage. - Neurochecks every 1 to 2 hours - Monitor vitals closely. - Neurosurgery consult - Spoke with Dr. Maria over the phone, states she went over the CAT scan results patient does not need any surgical intervention at this time, recommends neurology evaluation. neurology recommendations. - MRA done on 07/10 showing multiple aneurysm; further follow up as an outpatient. Will resume aspirin (Confirmed with Dr. Paetl in person) but continue to hold Xarelto. - Appreciate Neurology recommendation. DVT prophylaxis: Alps only due to subarachnoid hemorrhage Diet: Nothing by mouth. Code: Full code Downgraded to gen Med. Problem List: 1. Sepsis Pain Ratin Pain Location: no Pain Goal: Remain pain free Pain Plan: see a/p Tomorrow's Labs & Rationales: cbc, bep
[2017-07-12 13:40] VITALS: BP 114/60
--- NOTE | 2017-07-12 15:55 | PN- Infect Dx ---
Subjective Subjective: No fever/chills/EVERETT/or abd pain. Review of Systems Comments: 12 points reviewed as noted, otherwise negative. Objective Last 24 Hrs of Vital Signs/I&O Vital Signs Date Time Temp Pulse Resp B/P B/P Pulse O2 O2 Flow FiO2 Mean Ox Delivery Rate 07/12 1340 98.9 95 20 114/60 94 Room Air 07/12 0623 97.3 66 20 122/70 95 Room Air 07/11 2227 98.3 91 20 140/60 94 Room Air 07/11 1835 98.2 100 20 102/60 94 Room Air 07/11 1600 99.4 88 20 140/76 96 Room Air Intake & Output 07/12 1600 07/12 0800 07/12 0000 Intake Total 680 0 200 Output Total 300 Balance 680 0 -100 Intake, Oral 680 0 200 Output, Urine 300 Physical Exam Other Physical Findings: He appears comfortable in no acute distress HEENT: AT/NC Neck No JVD Lungs are clear Heart irregular rhythm with no murmur Abdomen is obese, soft, tender on palpation over the mid abdomen Extremities no cyanosis, clubbing or edema Neuro: A&O x3, non focal Results Last 24 Hours of Lab Results: Laboratory Tests 07/12 07/12 0655 0500 Chemistry Sodium (137 - 145 mmol/L) 139 Cancelled Potassium (3.5 - 5.1 mmol/L) 4.0 Cancelled Chloride (98 - 107 mmol/L) 106 Cancelled Carbon Dioxide (22 - 30 mmol/L) 21 L Cancelled Anion Gap (5 - 16) 12 Cancelled BUN (9 - 20 mg/dL) 16 Cancelled Creatinine (0.7 - 1.2 mg/dL) 1.0 Cancelled Estimated GFR (>60 ml/min) > 60 BUN/Creatinine Ratio (7 - 25 %) 16.0 Glucose Cancelled Calcium Cancelled Phosphorus (2.5 - 4.5 mg/dL) 3.8 Cancelled Magnesium (1.6 - 2.3 mg/dL) 2.0 Cancelled Total Bilirubin Cancelled AST Cancelled ALT Cancelled Albumin Cancelled Hematology CBC w Diff NO MAN DIFF REQ WBC (4.8 - 10.8 /CUMM) 6.5 RBC (4.70 - 6.10 /CUMM) 4.63 L Hgb (14.0 - 18.0 G/DL) 13.3 L Hct (42 - 52 %) 39.8 L MCV (80.0 - 94.0 FL) 85.9 MCH (27.0 - 31.0 PG) 28.7 MCHC (33.0 - 37.0 G/DL) 33.4 RDW (11.5 - 14.5 %) 14.9 H Plt Count (130 - 400 /CUMM) 127 L MPV (7.4 - 10.4 FL) 10.3 Gran % (42.2 - 75.2 %) 59.0 Lymphocytes % (20.5 - 51.1 %) 23.7 Monocytes % (1.7 - 9.3 %) 15.4 H Eosinophils % (0 - 5 %) 1.5 Basophils % (0.0 - 2.0 %) 0.4 Absolute Granulocytes (1.4 - 6.5 /CUMM) 3.8 Absolute Lymphocytes (1.2 - 3.4 /CUMM) 1.5 Absolute Monocytes (0.10 - 0.60 /CUMM) 1.0 H Absolute Eosinophils (0.0 - 0.7 /CUMM) 0.1 Absolute Basophils (0.0 - 0.2 /CUMM) 0 Last 24 Hours of Markel Results: SPEC #: [id number] DIMITRI: 07/12/17 STATUS: ORD RECD: - SUBM DR: Venancio SALVADOR,Kelsey SOURCE: BLOOD ENTR: 07/12/17-[address]: Darya SALVADOR, Carmelina SPDESC: 2ND/VENOUS Chely SALVADOR,Garland Jack MD,[facility] ORDERED: BLOOD CULTURE Procedure Result BLOOD CULTURE PENDING RECEIPT Recent Imaging Studies: Reviewed Assessment/Plan ID Impression: #High fever 2 days ago; resolved; clinically improved # ESBL E.Coli Bacteremia; biliary/pancreatic source suspected # Chronic pancreatitis and his MRCP findings. # Leukocytosis/resolved # Subarachnoid hemorrhage # Hx of HTN and HLD # Hx of CAD s/p CABG # Hx of A. fib S/P ablation, recently diagnosed A flutter on Xarelto Suggestion: 1. F/U GI recom, per team no plans for ERCP 2. Continue Meropenem 1 gm q 8 h D #2; if he remains afebrile consider deescalting ax (e.g Bactrim starting 07/13).
[2017-07-12 21:55] VITALS: BP 120/60
[2017-07-13 06:07] VITALS: BP 130/76
[2017-07-13] MEDS ORDERED: SULFAMETHOXAZO1 EAC1 PO ×2 (07:17→10:43)
--- NOTE | 2017-07-13 07:21 | PN- Housestaff ---
See Addendum Subjective Follow-up For: ESBL bacteremia, subarachnoid hemorrhage, multiple small brain aneurysms Subjective: No overnight events. The patient feels well with no chest pain, shortness of breath, abdominal pain, or other complaints. He feels ready to go home. Review of Systems Constitutional: Reports: no symptoms. EENTM: Reports: no symptoms. Cardiovascular: Reports: no symptoms. Respiratory: Reports: no symptoms. Gastrointestinal: Reports: no symptoms. Genitourinary: Reports: no symptoms. Musculoskeletal: Reports: no symptoms. Skin: Reports: no symptoms. Neurological/Psychological: Reports: no symptoms. Hematologic/Endocrine: Reports: no symptoms. Immunologic/Allergic: Reports: no symptoms. Objective Last 24 Hrs of Vital Signs/I&O Vital Signs Date Time Temp Pulse Resp B/P B/P Pulse O2 O2 Flow FiO2 Mean Ox Delivery Rate 07/13 0607 98.8 71 20 130/76 95 Room Air 07/12 2155 98.9 87 20 120/60 98 07/12 1340 98.9 95 20 114/60 94 Room Air Intake & Output 07/13 0800 07/13 0000 07/12 1600 Intake Total 250 480 680 Output Total Balance 250 480 680 Intake, Oral 250 480 680 Physical Exam General Appearance: Alert, Oriented X3, Cooperative, No Acute Distress Cardiovascular: Regular Rate, Normal S1, Normal S2 Lungs: Clear to Auscultation Abdomen: Normal Bowel Sounds, Soft, No Tenderness Extremities: No Edema, Normal Pulses, No Tenderness/Swelling Current Medications: Current Medications Sig/Renetta Start time Last Medication Dose Route Stop Time Status Admin Acetaminophen 1,000 MG Q8P PRN 07/13 0715 AC PO Acetaminophen 650 MG Q6P PRN 07/09 0300 DC 07/09 PO 2009 Acetaminophen 1,000 MG Q6P PRN 07/09 0300 DC IV Aspirin 81 MG DAILY 07/13 0900 CAN PO Aspirin 81 MG Q48 07/11 1300 DC 07/11 PO 1327 Atorvastatin Calcium 20 MG 1700 07/09 1700 AC 07/12 PO 1754 Docusate Sodium 100 MG BID 07/09 0900 AC 07/12 PO 2009 Magnesium Oxide 400 MG DAILY 07/09 1218 AC 07/12 PO 0848 Melatonin 5 MG AT BEDTIME 07/13 2100 AC PO Meropenem 1 GM Q8H 07/11 1000 DC 07/13 IV 0205 Omeprazole 40 MG DAILY AC 07/13 0709 AC PO Ondansetron HCl 4 MG Q8P PRN 07/09 0300 DC IV Pantoprazole Sodium 40 MG DAILY 07/09 0900 DC 07/12 IV 0849 Phosphate 250 MG PC AND AT BEDTIME 07/10 0900 DC 07/12 PO 2009 Senna/Docusate Sodium 1 TAB AT BEDTIME 07/09 2100 AC 07/12 PO 2009 Trimethoprim/ 1 TAB BID 07/13 09 AC Sulfamethoxazole PO Assessment/Plan Assessment: Mr. Mullen is a 72-year-old male with past medical history of diabetes, hypertension, hyperlipidemia, CABG and stent, atrial fibrillation status post ablation, pancreatitis, recent hospitalization on 07/01 for chest pain and a flutter started on rivaroxaban who presented with abdominal pain and confusion. Problem list: 1. ESBL bacteremia 2. Subarachnoid hemorrhage 3. Multiple small brain aneurysms #ESBL bacteremia: Patient presented with abdominal pain, nausea and vomiting. Also had an elevated lactic acid. Amylase and Lipase normal. Total bilirubin at the time of admission was 2.3 trending down to 1.9--> 1.4 with direct bilirubin of 0.8. Lactic acid trended down. Right upper quadrant ultrasound showed borderline thickening of the gallbladder wall and dilatation of the common bile duct up to approximately 1 cm, unchanged when compared to 11/10/2015 without any definite choledocholithiasis. He also had an MRCP done showing extra hepatic biliary ductal dilatation seen to the level of the ampulla without a discrete obstructing lesion. Blood cultures are growing ESBL, E. coli, sensitive to trimethoprim/sulfamethoxazole and meropenem. Patient received 3 days of meropenem per ID recommends downgrading to oral trimethoprim/sulfamethoxazole today. -Trimethoprim/sulfamethoxazole, day 3 -Appreciate ID recommendations -Outpatient gastroenterology follow-up at [facility] #Subarachnoid hemorrhage/multiple brain aneurysms: Neurosurgery consulted and recommended recommended avoiding all antiplatelet/anticoagulation medications. Cardiology was consulted as well because the patient was recently diagnosed with atrial flutter. -Outpatient follow-up with Dr. Dowling -Continue to hold aspirin and rivaroxaban -Outpatient follow-up with neurosurgery #Chronic medical problems: -Continue other home medications DVT prophylaxis with Alps Heart healthy diet Full code Problem List: 1. Subarachnoid bleed Pain Ratin Pain Location: no Pain Goal: Remain pain free Pain Plan: see a/p Tomorrow's Labs & Rationales: no
[2017-07-13 09:05] LABS: ABSOLUTE BASOPHIL COUNT 0.1 /CUMM (0.0-0.2); ABSOLUTE EOSINOPHIL COUNT 0.3 /CUMM (0.0-0.7); ABSOLUTE GRANULOCYTE CT 3.5 /CUMM (1.4-6.5); ABSOLUTE MONOCYTE COUNT 0.9 /CUMM (0.10-0.60); BASOPHIL % 0.8 % (0.0-2.0); EOSINOPHIL % 4.3 % (0-5); GRANULOCYTE % 51.6 % (42.2-75.2); HEMATOCRIT 39.6 % (42-52); MEAN CORPUSCULAR HGB 29.4 PG (27.0-31.0); MEAN CORPUSCULAR HGB CONC 34.7 G/DL (33.0-37.0); MEAN CORPUSCULAR VOLUME 84.8 FL (80.0-94.0); MEAN PLATELET VOLUME 9.9 FL (7.4-10.4); PLATELET COUNT 148 /CUMM (130-400); RBC DISTRIBUTION WIDTH 14.4 % (11.5-14.5); RED BLOOD CELL CT 4.67 /CUMM (4.70-6.10); WHITE BLOOD CELL COUNT 6.7 /CUMM (4.8-10.8)
--- NOTE | 2017-07-13 10:36 | Discharge Summary ---
See Addendum Visit Information Visit Dates Admission Date: 07/09/17 Discharge Date: 07/13/17 Hospital Course Course Attending Physician: Valeria Costa MD Primary Care Physician: Chely SALVADOR,Garland Lopez Hospital Course: Mr. Mullen is a 72-year-old male with past medical history of diabetes, hypertension, hyperlipidemia, CABG and stent, atrial fibrillation status post ablation, pancreatitis, recent hospitalization on 07/01 for chest pain and a flutter started on rivaroxaban who presented with abdominal pain and confusion. Vitals at the time of admission were : T max 100.5, pulse 113, RR 14, blood pressure 95/58 on arrival improved to 108/55, saturating well on room air. On exam: A O 3, cooperative, no acute distress, neck supple, JVD normal, no lymphadenopathy, mucosa moist, complete neurological examination unremarkable, no dependent edema, no obvious skin rashes or inflammation CVS: S1-S2, RRR. RS: Clear to auscultate bilaterally. Abdomen: Soft, ND, bowel sounds present, very mild right upper quadrant tenderness, no Sierra's sign, no guarding or rigidity. CT head without contrast: Trace subarachnoid hemorrhage in the high left frontal lobe. He was initially admitted to the ICU and then transferred to general medicine and treated for the following problems: 1. ESBL bacteremia with suspected cholangitis 2. Subarachnoid hemorrhage 3. Multiple small brain aneurysms #ESBL bacteremia: Patient presented with abdominal pain, nausea and vomiting. Also had an elevated lactic acid. Amylase and Lipase normal. Total bilirubin at the time of admission was 2.3 trending down to 1.9--> 1.4 with direct bilirubin of 0.8. Lactic acid trended down. Right upper quadrant ultrasound showed borderline thickening of the gallbladder wall and dilatation of the common bile duct up to approximately 1 cm, unchanged when compared to 11/10/2015 without any definite choledocholithiasis. He also had an MRCP done showing extra hepatic biliary ductal dilatation seen to the level of the ampulla without a discrete obstructing lesion. Blood cultures are growing ESBL, E. coli, sensitive to trimethoprim/sulfamethoxazole and meropenem. Patient received 3 days of meropenem then downgraded to oral trimethoprim/sulfamethoxazole. He should continue for a total of 14 days therapy and follow-up with gastroenterology at [facility]. #Subarachnoid hemorrhage/multiple brain aneurysms: Neurosurgery consulted and recommended recommended avoiding all antiplatelet/anticoagulation medications. Cardiology was consulted as well because the patient was recently diagnosed with atrial flutter. He is being discharged off anticoagulation per the recommendation of neurology and cardiology. He should follow-up with Dr. Dowling. He should also follow-up with Dr. Alvarez. #Chronic medical problems: His other home medications were continued. Allergies: Coded Allergies: Penicillins (Intermediate, SWELLING 05/16/15) Disposition Summary Disposition Principal Diagnosis: 1. ESBL bacteremia with suspected cholangitis Additional Diagnosis: 2. Subarachnoid hemorrhage 3. Multiple small brain aneurysms Discharge Disposition: home or self care Discharge Instructions General Discharge Information Code Status: Full Code Patient's Diet: Heart healthy diet Patient's Activity: As tolerated Follow-Up Instructions/Appts: Please take all medications as directed. Please follow-up with primary care, gastroenterology at [facility], neurosurgery Dr. Alvarez, and Dr. Fleming cardiology. Medications at Discharge Discharge Medications: Stop taking the following medications: Aspirin (Children's Aspirin) 81 MG TAB.CHEW ORAL EVERY 48 HOURS (Every 2 days) [place]-3 Fatty Acids (Fish Oil Concentrate) 1,000 MG CAPSULE ORAL DAILY Rivaroxaban (Xarelto) 20 MG TABLET ORAL Every night Qty = 30 Continue taking these medications: Methylcellulose (Fiber Therapy) 500 MG TABLET 1 Tablet ORAL DAILY Comments: NOT GIVEN DURING HOSPITAL STAY Amlodipine Besylate (Norvasc) 5 MG TABLET 1 Tablet ORAL DAILY Comments: not given Atorvastatin Calcium (Lipitor) 20 MG TABLET 1 Tablet ORAL DAILY Comments: Last Taken: 07/12/17 Time: 600pm Azilsartan Medoxomil (Edarbi) 40 MG TABLET 1 Tablet ORAL DAILY Comments: NOT GIVEN DURING HOSPITAL STAY Cyanocobalamin (Vitamin B-12) 1,000 MCG TABLET 1 Tablet ORAL DAILY Comments: not given Cyclosporine (Restasis) [address]OPERETTE 1 Drop In the eye TWICE DAILY Comments: not given Omeprazole (Omeprazole) 40 MG CAPSULE. 1 Capsule ORAL DAILY Comments: Last Taken: 07/13/17 Time: 900am Cholecalciferol (Vitamin D3) 1,000 UNIT TABLET 1 Tablet ORAL DAILY Comments: not given Magnesium Oxide (Magnesium Oxide) 400 MG TABLET 1 Tablet ORAL DAILY Comments: Last Taken: 07/13/17 Time: 900am Metoprolol Tartrate (Lopressor) 100 MG TABLET 1 Tablet ORAL TWICE DAILY Qty = 30 Comments: not given Isosorbide Mononitrate (Isosorbide Mononitrate ER) 30 MG TAB.ER.24H 1 Tablet ORAL DAILY Qty = 30 Comments: not given Start taking the following new medications: Sulfamethoxazole/Trimethoprim (Sulfamethoxazole-Tmp Ds Tablet) 800 MG-160 MG TABLET 1 Tablet ORAL TWICE DAILY Qty = 21 No Refills Instructions: . Comments: Last Taken: 07/13/17 Time: 900am Copies To: Eddie SALVADOR,Mark Michelle; Mario SALVADOR,Kole Rodriguez; Poli SALVADOR,Socorro; Antonio SALVADOR, Bruce; Joe SALVADOR,Floyd Ragsdale
--- NOTE | 2017-07-13 12:26 | PN- Infect Dx ---
Subjective Subjective: Afebrile. He notes a pruritic rash on his back. Objective Last 24 Hrs of Vital Signs/I&O Vital Signs Date Time Temp Pulse Resp B/P B/P Pulse O2 O2 Flow FiO2 Mean Ox Delivery Rate 07/13 0607 98.8 71 20 130/76 95 Room Air 07/12 2155 98.9 87 20 120/60 98 07/12 1340 98.9 95 20 114/60 94 Room Air Intake & Output 07/13 1600 07/13 0800 07/13 0000 Intake Total 250 480 Output Total Balance 250 480 Intake, Oral 250 480 Physical Exam Other Physical Findings: He appears comfortable in no acute distress Skin maculopapular rash on his back Lungs are clear Heart regular rhythm without murmur Abdomen is soft, nontender with positive bowel sounds Extremities no cyanosis, clubbing or edema Results Last 24 Hours of Lab Results: Laboratory Tests 07/13 0759 Chemistry Sodium (137 - 145 mmol/L) 139 Potassium (3.5 - 5.1 mmol/L) 4.0 Chloride (98 - 107 mmol/L) 106 Carbon Dioxide (22 - 30 mmol/L) 22 Anion Gap (5 - 16) 11 BUN (9 - 20 mg/dL) 19 Creatinine (0.7 - 1.2 mg/dL) 1.0 Estimated GFR (>60 ml/min) > 60 BUN/Creatinine Ratio (7 - 25 %) 19.0 Phosphorus (2.5 - 4.5 mg/dL) 3.1 Magnesium (1.6 - 2.3 mg/dL) 2.2 Hematology CBC w Diff NO MAN DIFF REQ WBC (4.8 - 10.8 /CUMM) 6.7 RBC (4.70 - 6.10 /CUMM) 4.67 L Hgb (14.0 - 18.0 G/DL) 13.7 L Hct (42 - 52 %) 39.6 L MCV (80.0 - 94.0 FL) 84.8 MCH (27.0 - 31.0 PG) 29.4 MCHC (33.0 - 37.0 G/DL) 34.7 RDW (11.5 - 14.5 %) 14.4 Plt Count (130 - 400 /CUMM) 148 MPV (7.4 - 10.4 FL) 9.9 Gran % (42.2 - 75.2 %) 51.6 Lymphocytes % (20.5 - 51.1 %) 29.6 Monocytes % (1.7 - 9.3 %) 13.7 H Eosinophils % (0 - 5 %) 4.3 Basophils % (0.0 - 2.0 %) 0.8 Absolute Granulocytes (1.4 - 6.5 /CUMM) 3.5 Absolute Lymphocytes (1.2 - 3.4 /CUMM) 2.0 Absolute Monocytes (0.10 - 0.60 /CUMM) 0.9 H Absolute Eosinophils (0.0 - 0.7 /CUMM) 0.3 Absolute Basophils (0.0 - 0.2 /CUMM) 0.1 Last 24 Hours of Markel Results: Blood cultures July 08 positive for ESBL producing E. coli sensitive to Gentamicin, Ticarcillin clavulanate, Meropenem and Bactrim Urine culture July 09 negative Blood cultures July 11 negative Assessment/Plan ID Impression: Improved, with temperatures and white blood cell count normal, now on Meropenem, begun 2 days ago after his blood cultures were identified as ESBL producing E. coli, though he had already improved, with resolution of his abdominal symptoms, fevers and leukocytosis, on Ceftriaxone and Flagyl. The source of his sepsis is presumably biliary or pancreatic, but GI is recommending that further workup be done as an outpatient. The pruritic rash on his back is likely related to a heat rash from diaphoresis, with no involvement of the trunk or extremities. The subarachnoid bleed is felt by Neurology to be of unclear significance, with the MRA results noted. Suggestion: 1. Further workup for his pancreatic/biliary disease per GI as an outpatient 2. Discontinue Meropenem 3. Begin Bactrim DS 1 p.o. every 12 hours for 12 days
== END 2017-07-13 11:45 | disposition home health service (06) | DRG 871 ==
LOC: ERH 21:47 → ERHI 07-09 01:25 → CRI 07-09 01:25 → ENRESERV 07-09 02:23 → CRI 07-09 03:24 → ENTRNSPT 07-11 17:38 → EDTRNSPTSTS 07-11 17:51 → EDTRNSPT 07-11 17:51 → 2NA 07-11 17:55 → CMPTRNSPT 07-11 18:04 → 2NA 07-13 08:54 → ENPENDDIS 07-13 11:01 → 2NA 07-13 11:45 → ENTRNSPT 07-13 12:00 → EDTRNSPT 07-13 12:18 → EDTRNSPTSTS 07-13 12:18 → CMPTRNSPT 07-13 13:03
PROVIDERS: Internal Medicine; Physician Assistant; Student in an Organized Health Care Education/Training Program
DX: A41.9 Sepsis, unspecified organism (principal); I60.9 Nontraumatic subarachnoid hemorrhage, unspecified; K83.0 Cholangitis; K85.10 Biliary acute pancreatitis without necrosis or infection; E87.2 Acidosis; I48.92 Unspecified atrial flutter; R44.3 Hallucinations, unspecified; A49.8 Other bacterial infections of unspecified site; Z95.1 Presence of aortocoronary bypass graft; J44.9 Chronic obstructive pulmonary disease, unspecified; I25.10 Atherosclerotic heart disease of native coronary artery without angina pectoris; E66.9 Obesity, unspecified; Z68.30 Body mass index [BMI] 30.0-30.9, adult; K57.30 Diverticulosis of large intestine without perforation or abscess without bleeding; E78.5 Hyperlipidemia, unspecified; I10 Essential (primary) hypertension; Z98.61 Coronary angioplasty status; Z88.0 Allergy status to penicillin; Z79.01 Long term (current) use of anticoagulants; Z79.82 Long term (current) use of aspirin; K21.9 Gastro-esophageal reflux disease without esophagitis
CPT/HCPCS: 2NAP; 70555; 74181; CCU; 36415; 36592; 71045; 71046; 74176; 80307; 81001; 82436; 87040; 87086; 87804; 87804-59; 93005; 93010; 96374; 97116-GO; 97161-GP; 97165-GO; 97530-GO; 99291; G0480; J0131; J0696; J0713; J2185; J3490; J7120